=== PATIENT | male | born 1935 | race Caucasian/White ===

== ENCOUNTER 2021-08-29 14:00 | Outpatient (RCR) | payer MEDICARE, SELFPAY | END 2021-10-17 15:00 | disposition home or self-care (01) | LOC: HO.PT 14:00 | PROVIDERS: Visit Provider Otolaryngology | DX: R42 Dizziness and giddiness (principal) | CPT/HCPCS: 97110; 97112; 97162 ==

== ENCOUNTER 2022-11-18 07:21 | Inpatient (IN) | payer MEDICARE, SELFPAY ==
[2022-11-18] VITALS (7 sets, daily range): BP systolic 108–132; BP diastolic 52–87; PULSE 71–87; RESP 16–20; TEMP 36.7–37.1; O2SAT 88–96; BMI 37.1
--- NOTE | ~2022-11-18 | XR_ITS ---
EXAMINATION: XR CHEST CLINICAL INFORMATION: Shortness of breath. COMPARISON: None TECHNIQUE: Portable AP view of the chest was obtained. XR/XR chest 1V FINDINGS/IMPRESSION: The study is quite limited by portable technique and low lung volumes. Findings suggest bilateral interstitial prominence with patchy, bilateral, predominantly perihilar interstitial and possibly groundglass and/or alveolar infiltrates. The findings raise suspicion for pulmonary edema; superimposed pneumonia cannot be confirmed or excluded. There is a question of a hazy density at the left base, raising the possibility of small effusion. No effusion is suspected on the right. No pneumothorax is evident. The cardiac silhouette is suboptimally evaluated. The tip of a left subclavian pulse generator device lead projects over the right ventricle. There is an old, healed fracture of the left clavicle. There are degenerative changes of the spine.
--- NOTE | ~2022-11-18 | XR_ITS ---
EXAMINATION: XR CHEST CLINICAL INFORMATION: Cough and shortness of breath COMPARISON: 11/18/2022 TECHNIQUE: Frontal view of the chest was obtained. FINDINGS: Low lung volumes. Small bilateral pleural effusions suspected. Retrocardiac opacity redemonstrated pulmonary venous congestion without overt edema. No pneumothorax. No acute osseous abnormalities. XR/XR chest 1V IMPRESSION: * Small bilateral pleural effusions suspected. * Retrocardiac opacity could represent atelectasis or infiltrate.
--- NOTE | ~2022-11-18 | CT_ITS ---
EXAMINATION: CT CHEST WITHOUT CONTRAST CLINICAL INFORMATION: Dyspnea, cough. Rule out infiltrates, edema or mass. COMPARISON: Chest x-rays of 11/19/2022 and 11/18/2022. Selected images of the lumbar spine MRI of 01/06/2013. Renal ultrasound of 07/17/2022. TECHNIQUE: Multidetector volumetric CT imaging of the chest was done. Axial MIP volume rendering provided. Sagittal and coronal reformatted images were obtained. This CT examination was performed using dose optimization techniques as appropriate, variously including the following: *Automated exposure control *Adjustment of mA and/or kV according to patient size (this includes techniques or standardized protocols for targeted exams where dose is matched to indication/reason for exam; i.e. extremities or head) *Use of iterative reconstruction technique DLP: 230 mGy-cm FINDINGS: LUNGS: There is a 0.4 cm noncalcified nodule in the right lung apex posterolaterally (series 8 image 118). Scattered ground-glass changes may represent hypoventilatory changes or changes related to small-airway or small-vessel disease. There is right lower lobe posterior consolidation. MEDIASTINUM: Generalized cardiomegaly. No evidence of mediastinal or hilar adenopathy. Trachea and central bronchi are well patent. No pericardial effusion. Mild pericardial thickening is seen. No focal thyroid nodule. CORONARY ARTERY CALCIFICATION: Extensive coronary calcifications are noted. PLEURA: There is no pleural effusion. No pleural mass or thickening. AXILLA: No lymphadenopathy. CHEST WALL: A left-sided single-lead pacemaker is in place in the upper anterior chest wall subcutaneous tissue with the pacer lead terminating into the right ventricle. UPPER ABDOMEN: Large fat attenuating lesion is noted in the right suprarenal region exerting mass effect over the posterior margin of the liver. Some fat reticulation is noted in the region. Normal-appearing right adrenal gland is not seen. Corresponding hyperechoic lesion is noted on the ultrasound of 07/17/2022. The kidneys are not visualized in the imaged abdomen. Visualized left adrenal gland is unremarkable. OSSEOUS STRUCTURES: No acute or suspicious osseous lesion. Ossification of the anterior longitudinal ligament is noted. CT/CT chest wo IV con IMPRESSION: 1. A 0.4 cm nodule in the right lung apex. According to the UPDATED 2017 Fleischner Society recommendations, the advised followup imaging for solid nodules < 6 mm is: LOW RISK PATIENT: No routine follow up. HIGH RISK PATIENT: Optional CT at 12 months. 2. Ground-glass changes in the lungs are nonspecific and may reflect hypoventilatory changes or changes related to small-airway or small-vessel disease. Infectious/inflammatory process is also in the differential. Right lower lobe consolidation may represent atelectasis or infiltrate. Otherwise, no discrete mass or changes of pulmonary edema noted. 3. Extensive coronary calcifications. Cardiomegaly. Mild pericardial thickening. 4. 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 There are no pertinent prior studies for comparison otherwise. Differential may include large adrenal myolipoma or retroperitoneal lipomatous tumor. Recommend correlation with clinical history. Fleischner guidelines were followed.
--- NOTE | 2022-11-18 07:43 | ECG_ITS ---
Test Reason : sob Blood Pressure : / mmHG Vent. Rate : 070 BPM Atrial Rate : 089 BPM P-R Int : 000 ms QRS Dur : 164 ms QT Int : 450 ms P-R-T Axes : 000 116 073 degrees QTc Int : 486 ms Ventricular-paced rhythm Underlyong AF Abnormal ECG No previous ECGs available Referred By: Homero Clayton Electronically Signed By:ALEJANDRA CHAVARRIA MD
--- NOTE | 2022-11-18 07:45 | ED_ITS ---
HPI - SOB/Dyspnea General Chief Complaint: Dyspnea Stated Complaint: SOB PER EMS Time Seen by Provider: 11/18/22 07:40 Source: patient Mode of arrival: EMS Limitations: no limitations History of Present Illness HPI Narrative: patient states that he has been short of breath for 1 week MD elicited complaint: shortness of breath Onset (ago): week(s) Timing: constant Severity: mild Known history of: congestive heart failure Related Data Home Medications Medication Instructions Recorded Confirmed atorvastatin 20 mg tablet 1 tab PO DAILY 11/18/22 11/18/22 cholecalciferol (vitamin D3) 25 25 mcg PO BID 11/18/22 11/18/22 mcg (1,000 unit) tablet (Vitamin D3) metformin 500 mg tablet 1 tab PO BID 11/18/22 11/18/22 metoprolol succinate 200 mg 1 tab PO DAILY 11/18/22 11/18/22 tablet,extended release 24 hr omeprazole 20 mg capsule,delayed 1 cap PO DAILY 11/18/22 11/18/22 release potassium chloride 20 mEq 1 tab PO BID 11/18/22 11/18/22 tablet,extended release rivaroxaban 15 mg tablet (Xarelto) 1 tab PO DAILY 11/18/22 11/18/22 torsemide 20 mg tablet 2 tab PO BID 11/18/22 11/18/22 Allergies Allergy/AdvReac Type Severity Reaction Status Date / Time No Known Allergies Allergy Verified 11/18/22 07:32 Review of Systems Review of Systems: Yes all other systems are reviewed and are negative Cardiovascular: Cardiovascular: Reports dyspnea Respiratory: Respiratory: Reports dyspnea Musculoskeletal: Comments: leg swelling Neurologic: Denies Sensory deficit (Neuro) [facility] Past Medical History Medical History (Updated 11/18/22 @ 11:14 by Pedro Cunha MD) CAD (coronary artery disease) Chronic a-fib CKD (chronic kidney disease), stage III COPD (chronic obstructive pulmonary disease) Diabetes mellitus PHIL (obstructive sleep apnea) Surgical History (Updated 11/18/22 @ 11:12 by Pedro Cunha MD) Artificial cardiac pacemaker H/O hernia repair S/P appendectomy S/P AV albertina ablation S/P total knee arthroplasty Social History Social History Advance Directives: Yes Advance Directives Information Provided: Yes Advance Directives on File: No Physical Exam Vital Signs: Vital Signs: Last Vital Signs Temp 98.1 F 11/18/22 13:32 Pulse 73 11/18/22 13:32 Resp 16 11/18/22 13:32 BP 122/87 11/18/22 13:32 Pulse Ox 94 11/18/22 13:32 O2 Del Method 11/18/22 13:32 O2 Flow Rate 2 11/18/22 10:32 BMI result Body Mass Index 37.1 Const: Other: elderly male slightly short of breath Nutritional Appearance: average body habitus Orientation/consciousness: oriented to person and patient oriented x3 Limitations: no limitations HEENT: Head: Yes normal to inspection Ears: external ears normal General nose exam: Normal external nose present Mouth: Normal oral and palatal mucosa present and oropharynx normal Throat: Yes posterior oropharynx normal Eyes: General: appearance normal, both eyes and all related structures Neck: Other: supple, positive JVD Chest: Chest palpation & inspection: normal inspection of the chest Resp: Other: basilar rales Cardio: Jugular venous distension: no JVD Rate: regular rate Rhythm: regular rhythm Heart sounds: S1 normal heart sound present and S2 normal heart sound present GI: Inspection: Yes normal to inspection Palpation (GI): Soft to palpation, nontender and No hepatosplenomegaly present Auscultation: normal bowel sounds : General: Yes no CVA tenderness Back/Spine/Pelvis: Back: no CVA tenderness Skin: General skin exam: no rashes or lesions noted Neuro: General: oriented to person and patient oriented x3 Cranial nerves: Yes CN's II-XII intact bilaterally Motor exam (neuro): 5/5 motor strength present throughout Sensory Exam: No Sensory deficit (Neuro) Extrem: Other: 3+ edema Psych: Appearance: grossly normal Course Reevaluation(s) Reevaluation #1: discussed with his PMD, H/H at baseline, renal function at baseline, EF 35% will admit as he has worsening CHF on his xray and pleural effusion Time: 11:05 Medications Administered Discontinued Medications Generic Name Dose Route Start Last Admin Trade Name Freq PRN Reason Stop Dose Admin Furosemide 40 mg 11/18/22 07:43 11/18/22 08:17 Furosemide 40 Mg/4 Ml Vial IVPUSH 11/18/22 07:44 40 mg ONCE ONE Administration Protocol Nitroglycerin 1 inch 11/18/22 07:43 11/18/22 08:17 Nitroglycerin 2 % Oint 1 Gm Packet TRANSDERMA 11/18/22 07:44 1 inch ONCE ONE Administration Medical Decision Making Differential Diagnosis Differential Diagnoses: The differential diagnosis associated with the presenta tion includes (chf, cardiac ischemia, pleural effusion) Admission/Observation Consideration of admission/observation: Escalation of care including admi ssion/observation considered (87 yo with poor heart, presents with shortness of breath admission was considered upon arrival) Consult Healthcare Provider Management of the patient was discussed with: Hospitalist and Primary Care Provider (Brian Fry) Lab Data MDM Lab Attestation statement: I reviewed the patient's lab results. 11/18/22 07:56 11/18/22 07:56 Labs: Lab Results 11/18/22 11/18/22 11/18/22 Range/Units 07:56 07:56 07:56 WBC 11.6 H (4.8-10.8) X10*3/uL RBC 3.77 L (4.60-5.80) X10*6/uL Hgb 8.4 L (14.0-18.0) g/dl Hct 28.8 L (42.0-52.0) % MCV 76.4 L (80.0-98.0) fL MCH 22.3 L (27.0-33.0) pg MCHC 29.2 L (31.0-36.0) g/dl RDW 17.9 H (11.0-16.0) % Plt Count 147 L (160-400) X10*3/uL MPV 9.9 (9.4-12.4) fL Immature Gran % (Auto) 0.6 H (0.0-0.4) % Neut % (Auto) 67.1 (45-73) % Lymph % (Auto) 16.7 L (20-40) % [place] % (Auto) 14.9 H (2-11) % Eos % (Auto) 0.3 (0-4) % Baso % (Auto) 0.4 (0-2) % Lymph # (Auto) 1.9 (1.2-4.9) X10*3/uL [place] # (Auto) 1.7 H (0.1-1.2) X10*3/uL Eos # (Auto) 0.0 (0.0-0.4) X10*3/uL Baso # (Auto) 0.1 (0.0-0.2) X10*3/uL Abs Immat Gran (auto) 0.07 H (0.00-0.03) X10*3/uL Absolute Neuts (auto) 7.8 (2.0-8.3) x10*3/uL Absolute Nucleated RBC 0.000 (0.0-0.012) X10*3/uL Nucleated RBC % (auto) 0.0 (0.0-0.2) /100WBC Smear Tech's Comments VERIFIED Sodium 140 (135-145) mmol/L Potassium 4.0 (3.3-5.1) mmol/L Chloride 101 (96-108) mmol/L Carbon Dioxide 25 (22-29) mmol/L Anion Gap 18 (12-20) BUN 47 H (9-16) mg/dL Creatinine 1.75 H (0.5-1.4) mg/dL Estim Creat Clear Calc 34.9 Estimated GFR 37 Random Glucose 146 H (60-115) mg/dL Calcium 9.2 (8.4-10.2) mg/dL Iron 23 L (45-160) mcg/dL TIBC 359 (228-428) mcg/dL % Saturation 6 L (15-50) % Unsat Iron Binding 336 ug/dL Ferritin 26 (20-250) ng/mL Troponin I High Sens (<3.5-35.0) ng/L B-Natriuretic Peptide (<100) pg/mL Influenza Type A (PCR) NEGATIVE (Negative) Influenza Type B (PCR) NEGATIVE (Negative) RSV RNA Qual (PCR) NEGATIVE (Negative) SARS-CoV-2 RNA (RT-PCR) NEGATIVE (Negative) 11/18/22 11/18/22 Range/Units 07:56 07:56 WBC (4.8-10.8) X10*3/uL RBC (4.60-5.80) X10*6/uL Hgb (14.0-18.0) g/dl Hct (42.0-52.0) % MCV (80.0-98.0) fL MCH (27.0-33.0) pg MCHC (31.0-36.0) g/dl RDW (11.0-16.0) % Plt Count (160-400) X10*3/uL MPV (9.4-12.4) fL Immature Gran % (Auto) (0.0-0.4) % Neut % (Auto) (45-73) % Lymph % (Auto) (20-40) % [place] % (Auto) (2-11) % Eos % (Auto) (0-4) % Baso % (Auto) (0-2) % Lymph # (Auto) (1.2-4.9) X10*3/uL [place] # (Auto) (0.1-1.2) X10*3/uL Eos # (Auto) (0.0-0.4) X10*3/uL Baso # (Auto) (0.0-0.2) X10*3/uL Abs Immat Gran (auto) (0.00-0.03) X10*3/uL Absolute Neuts (auto) (2.0-8.3) x10*3/uL Absolute Nucleated RBC (0.0-0.012) X10*3/uL Nucleated RBC % (auto) (0.0-0.2) /100WBC Smear Tech's Comments Sodium (135-145) mmol/L Potassium (3.3-5.1) mmol/L Chloride (96-108) mmol/L Carbon Dioxide (22-29) mmol/L Anion Gap (12-20) BUN (9-16) mg/dL Creatinine (0.5-1.4) mg/dL Estim Creat Clear Calc Estimated GFR Random Glucose (60-115) mg/dL Calcium (8.4-10.2) mg/dL Iron (45-160) mcg/dL TIBC (228-428) mcg/dL % Saturation (15-50) % Unsat Iron Binding ug/dL Ferritin (20-250) ng/mL Troponin I High Sens 22.2 (<3.5-35.0) ng/L B-Natriuretic Peptide 614 H (<100) pg/mL Influenza Type A (PCR) (Negative) Influenza Type B (PCR) (Negative) RSV RNA Qual (PCR) (Negative) SARS-CoV-2 RNA (RT-PCR) (Negative) Independent Interpretation I performed an independent interpretation of an: EKG (ventricular pasce rhythm at 70, no acute changes ) and Plain X-Ray (congestive heart failure) Independent Historian Clinical information obtained from an independent historian. History obtained from or confirmed by: Other (son) Discharge Plan Discharge Clinical Impression: Congestive heart failure, Hypoxia Patient Disposition: Admitted As Inpatient
--- OUTSIDE RECORDS SUMMARY | 2022-11-18 07:52 | XMS_ITS | Continuity of Care Document ---
:1935 Author Organization [facility] Address [address] [place] [id number]- Care Team Providers Name Role Phone Eldon LARA, Brian Primary Care Physician Encounter [facility] Date(s): 10/19/19 - 10/19/[address] [id number]- [facility] Encounter Diagnosis Atrial fibrillation with RVR (Final) - 10/19/19 Left leg cellulitis (Final) - 10/19/19 Discharge Disposition: A-D/C Home Attending Physician: Basilio Capellan MD Admitting Physician: Basilio Capellan MD Referring Physician: Not on Staff, Referring MD Allergies, Adverse Reactions, Alerts Substance Reaction Severity Status penicillins Active Medications apixaban 5 mg oral tablet 1 tablet = 5 mg, By Mouth, 2 times a day, # 60 tablet, 0 Refills, Maintenance, 09/03/19 12:33:16 EST, Tablet Start Date: 09/03/19 Status: Orderedatorvastatin 20 mg oral tablet 1 tablet = 20 mg, By Mouth, Daily at bedtime, 0 Refills, Maintenance, 09/03/19 12:32:27 EST, Tablet Start Date: 09/03/19 Status: Orderedfurosemide 40 mg oral tablet 40 mg, 1, tablet, By Mouth, Daily, # 30 tablet, Refills 0, Maintenance, 08/30/19 22:24:57 EST Start Date: 08/30/19 Status: Orderedketotifen 0.025% ophthalmic solution 1 drops, Eyes, Both, Every 8 hours, # 5 mL, 0 Refills, Maintenance, 08/30/19 22:26:21 EST, Ophth Solution Start Date: 08/30/19 Status: Orderedmetoprolol succinate 200 mg oral capsule, extended release 1 capsule = 200 mg, By Mouth, Daily, # 30 capsule, 0 Refills, Maintenance, 09/03/19 12:32:59 EST, ERCapsule Start Date: 09/03/19 Stop Date: 10/03/19 Status: Orderedoxybutynin 5 mg oral tablet 0 Refills, Maintenance, 08/30/19 22:26:08 EST Start Date: 08/30/19 Status: Orderedpotassium chloride 20 mEq oral tablet, extended release 1 tablet = 20 mEq, By Mouth, Daily, take 1 tablet by mouth once daily Start Date: 08/30/19 Status: Ordered Problem List Condition Effective Dates Status Health Status Informant COPD (chronic obstructive pulmonary Active disease)(Confirmed) Coronary artery disease(Confirmed) Active Lower extremity edema(Confirmed) Active Hypertension(Confirmed) Active Prostate cancer(Confirmed) Active PHIL treated with BiPAP(Confirmed) Active Ulcer of left holliday(Confirmed) Active Results Radiology Reports Exam Date Time Procedure Performing Provider Status 10/19/19 5:06 PM Chest 2 Views Frontal and Lat Stupak , August; Au th (Verified) Notes:(Chest 2 Views Frontal and Lat) Reason For Exam: Pain;Other:RESULT: Chest 2 Views Frontal and Lat Chest 2 Views Frontal and Lat Refer to EMR; Reason: Other:; Pain; Clinical Question(s): Other:; Fracture, pneumothorax, pulmonary contusion COMPARISON: 08/30/2019 FINDINGS: LINES AND TUBES: None. LUNGS AND PLEURA: Low lung volume with haziness of both lung bases and small bilateral pleural effusions. No pneumothorax. HEART, MEDIASTINUM AND ANDERSON: Mild prominence of the cardiac silhouette, unchanged. Normal mediastinal and hilar contour. BONES AND SOFT TISSUES: No acute abnormality. Flowing anterior osteophytes consistent with DISH. IMPRESSION: Small bilateral pleural effusions with lower lobe atelectasis. WSN: [id number] Dictated By: Emery Bronson DO Dictated Date/Time: 10/19/19 5:14 pm Reviewed By: Emery Bronson DO Signed By: Emery Bronson DO Signed Date/Time: 10/19/19 5:14 pm Transcribed By: PATO Transcribed Date/Time: 10/19/19 5:12 pm Exam Date Time Procedure Performing Provider Status 10/19/19 5:06 PM Knee 1 or 2 Views Left Stupak , August; Auth (Paul ified) Notes:(Knee 1 or 2 Views Left) Reason For Exam: with Pain;TraumaRESULT: Knee 1 or 2 Views Left Knee 1 or 2 Views Left, 2 views Refer to EMR; Reason: Trauma; with Pain; Clinical Question(s): Fracture; Hx of Present Illness: pt being seen here today for wound care management to BLE, noted to be in rapid afib, brought down to ED by RESEARCH AND DEVELOPMENT SCIENTIST; Other Objective Findings: pt is alert and awake, oriented x4, resp even and non labored, speaking in clear complete sentences. denies sob dyspnea chest pain. denies blurred vision dizziness h COMPARISON: None. FINDINGS: There is no evidence of acute or healing fracture, dislocation or bone lesion. There are moderate enthesopathic changes of the patella. There is no significant joint space narrowing. There is mild medial and lateral compartment chondrocalcinosis. There is diffuse moderate soft tissue edema throughout the visualized left knee, with moderate soft tissue swelling anterior to the patella and a probable small to moderate suprapatellar effusion with multiple ossified loose bodies. IMPRESSION: 1. No acute fracture or dislocation. 2. Probable small to moderate suprapatellar effusion with ossified loose bodies. 3. Prepatellar soft tissue swelling, which may represent contusion or prepatellar bursitis. 4. Diffuse soft tissue swelling. WSN: [id number] Dictated By: Hao Garcia MD Dictated Date/Time: 10/19/19 5:14 pm Reviewed By: Hao Garcia MD Signed By: Hao Garcia MD Signed Date/Time: 10/19/19 5:14 pm Transcribed By: PATO Transcribed Date/Time: 10/19/19 5:12 pm Vital Signs Most recent to oldest [Reference 1 2 3 Range]: Oxygen Saturation [94-100 %] 95 % 94 % 99 % (10/19/19 11:10 PM) (10/19/19 9:53 PM) (10/19/19 7:55 PM) Pulse Rate [55-90 bpm] 125 bpm 129 bpm 121 bpm *H* *H* *H* (10/19/19 11:10 PM) (10/19/19 10:12 PM) (10/19/19 9:53 PM) Blood Pressure [90-138/55-84 mm 132/102 mm Hg 139/70 mm Hg 140/100 mm Hg Hg] (10/19/19 11:10 PM) *H* *H* (10/19/19 10:12 PM) (10/19/19 9:53 P M) Respiratory Rate [16-30 br/min] 26 br/min 28 br/min 27 br/min (10/19/19 11:10 PM) (10/19/19 9:53 PM) (10/19/19 7:55 PM) Temperature [96.8-100.4 DegF] 98.2 DegF (10/19/19 3:54 PM) Mode of Delivery (Oxygen) Room air Room air Room a ir (10/19/19 7:55 PM) (10/19/19 6:27 PM) (10/19/19 3:54 P M) Blood pressure sites Arm, right Arm, left Arm, right (10/19/19 7:55 PM) (10/19/19 6:27 PM) (10/19/19 3:54 P M) Temperature Route Oral (10/19/19 3:54 PM) Social History Social History Type Response Smoking Status Never (less than 100 in life time) entered on: 08/31/19 Sex
--- OUTSIDE RECORDS SUMMARY | 2022-11-18 07:52 | XMS_ITS ---
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 3149 02668 mellitus with diabetic peripheral angiopathy without gangrene ALLERGIES Substance Reaction Event Type Date Status Mold Unknown Drug Allergy Jul, Active Penicillin Unknown Drug Allergy Jul, Active Dust Mites Unknown Drug Allergy Jul, Active ENCOUNTERS Encounter Location Date Diagnosis [facility] [address] [place] [address] Oct, [place] [address] [facility] [address] [place] [address] Jul, Type 2 di abetes mellitus [place], [place] with diabetic pe ripheral [address] angiopathy witho ut gangrene E11.51 ; Tinea unguium B35.1 ; Pain in right toe(s) M79 .674 ; Pain in left toe (s) M79.675 ; Other hammer toe(s) (acquired ), right foot M20.41 and Other hammer toe(s) (a cquired), left foot M20.42 [facility] [address] [place] [address] May, Type 2 di abetes mellitus [facility] [place] diabetic pe ripheral [address] angiopathy witho ut gangrene E11.51 ; Tinea unguium B35.1 ; Pain in right toe(s) M79 .674 ; Pain in left toe (s) M79.675 ; Other hammer toe(s) (acquired ), right foot M20.41 and Other hammer toe(s) (a cquired), left foot M20.42 [facility] [place] [address] February, Type 2 di abetes mellitus [place], [place] with diabetic pe ripheral [address] angiopathy witho ut gangrene E11.51 ; Tinea unguium B35.1 ; Pain in right toe(s) M79 .674 and Pain in left toe (s) M79.675 [facility] [place] [address] Dec, Type 2 di abetes mellitus [place], [place] with diabetic pe ripheral [address] angiopathy witho ut gangrene E11.51 ; Tinea pedis B35.3 ; Ti atul unguium B35.1 ; Pain in right toe(s) M79 .674 and Pain in left toe (s) M79.675 [facility] [place] [address] Oct, Type 2 di abetes mellitus [place], [place] with diabetic pe ripheral [address] angiopathy witho ut gangrene E11.51 ; Tinea unguium B35.1 ; Pain in right toe(s) M79 .674 ; Pain in left toe (s) M79.675 and Amber a pedis B35.3 [facility] [place] [address] Jul, Type 2 di abetes mellitus [facility] [place] diabetic pe ripheral [address] angiopathy witho ut gangrene E11.51 ; Tinea unguium B35.1 ; Pain in right toe(s) M79 .674 ; Pain in left toe (s) M79.675 ; Other hammer toe(s) (acquired ), right foot M20.41 and Other hammer toe(s) (a cquired), left foot M20.42 [facility] [place] [address] May, Type 2 di abetes mellitus [facility] [place] pe ri[place]al [address] angiopathy witho ut gangrene E11.51 ; Tinea unguium B35.1 ; Pain in right toe(s) M79 .674 ; Pain in left toe (s) M79.675 ; Other hammer toe(s) (acquired ), left foot M20.42 and Other hammer toe(s) (a cquired), right foot M20.4 1 [facility] [address] February, Tinea severo uium B35.1 ; Pain [facility] [place] in right toe(s) M79.674 ; [address] Pain in left toe (s) M79.675 and Type 2 diabetes mellitu s with diabetic periphe ral angiopathy witho ut gangrene E11.51 [facility] [address] Dec, Tinea severo uium B35.1 ; Pain [facility] [place] in right toe(s) M79.674 ; [address] Pain in left toe (s) M79.675 and Type 2 diabetes mellitu s with diabetic periphe ral angiopathy witho ut gangrene E11.51 [place] [address] Oct, Tinea severo uium B35.1 ; Pain [facility] [place] in right toe(s) M79.674 ; [address] Pain in left toe (s) M79.675 and Type 2 diabetes mellitu s with diabetic periphe ral angiopathy witho ut gangrene E11.51 [facility] [address] Aug, Tinea severo uium B35.1 ; [facility] [place] Other hammer toe (s) [address] (acquired), righ t foot M20.41 ; Pain in right toe(s) M79.674 ; Other hammer toe(s) (a cquired), left foot M20.42 ; Pain in left toe(s) M79. 675 and Type 2 diabetes mellitus with diabetic pe ripheral angiopathy witho ut gangrene E11.51 [facility] [place] [address] May, Tinea severo uium B35.1 ; [place], [place] Other hammer toe (s) [address] (acquired), righ t foot M20.41 ; Pain in right toe(s) M79.674 ; Other hammer toe(s) (a cquired), left foot M20.42 ; Pain in left toe(s) M79. 675 and Type 2 diabetes mellitus with diabetic pe ripheral angiopathy witho ut gangrene E11.51 [facility] [place] [address] February, Tinea severo uium B35.1 ; [place] Other hammer toe (s) [address] (acquired), righ t foot M20.41 ; Pain in right toe(s) M79.674 ; Other hammer toe(s) (a cquired), left foot M20.42 ; Pain in left toe(s) M79. 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 675 [facility] [address] Sep, [place] [address] [place] [address] Jul, Tinea severo uium B35.1 ; [place] [facility] [place] in right toe(s) M79.674 [address] and Pain in left toe(s) M79.675 [facility] [address] [place] [address] Apr, Tinea severo uium B35.1 ; Pain [facility] [place] in right toe(s) M79.674 [address] and Pain in left toe(s) M79.675 [facility] [address] [place] [address] February, Tinea severo uium B35.1 ; [facility] M79.674 [address] and Pain in left toe(s) M79.675 [facility] [address] [place] [address] Nov, Tinea severo uium B35.1 ; Pain [facility] [place] in right toe(s) M79.674 [address] and Pain in left toe(s) M79.675 [facility] [address] [place] [address] Aug, Tinea severo uium B35.1 ; [facility] [place] Tinea pedis B35. 3 ; Pain [address] in right toe(s) M79.674 and Pain in left toe(s) M79.675 [facility] [address] Jun, [place] [address] [facility] [address] [place] [address] Jun, Tinea severo uium B35.1 ; [facility] [place] Tinea pedis B35. 3 ; Pain [address] in right toe(s) M79.674 and Pain in left toe(s) M79.675 [facility] [address] May, [place] [address] [facility] [address] [place] [address] May, [place] [address] [facility] [address] Mar, [place] [address] [facility] [address] Mar, [place] [address] [facility] [address] [facility] [address] Mar, Tinea severo uium B35.1 ; [facility] [place] Tinea pedis B35. 3 ; Pain [address] in right toe(s) M79.674 and Pain in left toe(s) M79.675 [facility] [address] [place] [address] Jan, Tinea severo uium B35.1 ; [facility] B35. 3 ; Pain [address] in right toe(s) M79.674 and Pain in left toe(s) M79.675 [facility] [address] Nov, [place] [address] [facility] [place] [address] Nov, Tinea severo uium B35.1 ; [facility] [place] Tinea pedis B35. 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 [address] ; Pain in right toe(s) M79.674 and Pain in left toe(s) M79.675 [facility] [address] [place] [address] Mar, Tinea severo uium B35.1 ; Pain [facility] [place] in right toe(s) M79.674 [address] and Pain in left toe(s) M79.675 [facility] [address] Mar, [place] [address] [facility] [place] [address] Dec, Tinea severo uium B35.1 ; Pain [facility] [place] in right toe(s) M79.674 [address] and Pain in left toe(s) M79.675 [facility] [address] 10 Dec, 2016 [place] [address] [facility] [place] [address] 14 Sep, 2016 Tinea severo uium B35.1 ; [place] Tinea pedis B35. 3 ; Pain [address] in right toe(s) M79.674 and Pain in left toe(s) M79.675 [facility] [address] 14 Jun, 2016 Tinea severo uium B35.1 ; [place] Tinea pedis B35. 3 ; Pain [address] in right toe(s) M79.674 and Pain in left toe(s) M79.675 IMMUNIZATIONS Vaccine Route Administration Date Status Influenza Unknown Jul 13, 2020 Administered SOCIAL HISTORY Qualifiers Date Never Smoker REASON FOR REFERRAL Reason Consult Notes Referring Provider First Name Dusty Referring Provider Last Name Yannick Referring Provider Specialty Podiatry Referring Provider email [email or web address] Referred Provider Brian Colón FUNCTIONAL STATUS PLAN OF CARE Activity Details Future Appointment Provider Name:Dusty Lanier , 2022-12-04 10:45:00 AM, [facility] [place] [address], [place], [address], Referral Consult Notes, Brian Campos i Future/Pending Procedure 21335-MKMCQKY NAIL, 6 OR MOR E Future/Pending Procedure 98150-DZXE SKIN LESIONS, 2 T O 4 Future/Pending Procedure 24415-OEQVFVP NAIL, 6 OR MOR E Future/Pending Procedure 47387-RGPT SKIN LESIONS, 2 T O 4 Future/Pending Procedure 54698-ZKEXYLO NAIL, 6 OR MOR E Future/Pending Procedure 10363-JTYB SKIN LESIONS, 2 T O 4 Future/Pending Procedure 92652-RSMZKRC NAIL, 6 OR MOR E Future/Pending Procedure 21015-GBOC SKIN LESIONS, 2 T O 4 Future/Pending Procedure 77682-ZMJJWQK NAIL, 6 OR MOR E Future/Pending Procedure 67208-LGGM SKIN LESIONS, 2 T O 4 Future/Pending Procedure 26083-ZEQIBCA NAIL, 6 OR MOR E Future/Pending Procedure 68656-RKXK SKIN LESIONS, 2 T O 4 Future/Pending Procedure 28845-YDREBRP NAIL, 6 OR MOR E Future/Pending Procedure 20221-ODZJ SKIN LESIONS, 2 T O 4 Future/Pending Procedure 12260-MEFZKSF NAIL, 6 OR MOR E Future/Pending Procedure 35415-NMDI SKIN LESIONS, 2 T O 4 Future/Pending Procedure 47858-DVMHXOA NAIL, 6 OR MOR E Future/Pending Procedure 32130-NQVC SKIN LESIONS, 2 T O 4 Future/Pending Procedure 18813-OSDAOFQ NAIL, 6 OR MOR E Future/Pending Procedure 35811-KCHS SKIN LESIONS, 2 T O 4 Future/Pending Procedure 51879-AGTIJTS NAIL, 6 OR MOR E Future/Pending Procedure 17098-EKHY SKIN LESIONS, 2 T O 4 Future/Pending Procedure 65974-IVPKQES NAIL, 6 OR MOR E Future/Pending Procedure 95812-GJVE SKIN LESIONS, 2 T O 4 Future/Pending Procedure 26809-RRKCDZP NAIL, 6 OR MOR E Future/Pending Procedure 20601-PPGX SKIN LESIONS, 2 T O 4 Future/Pending Procedure 18843-EWXBXPM NAIL, 6 OR MOR E Future/Pending Procedure 48393-FWIP SKIN LESIONS, 2 T O 4 Future/Pending Procedure 14549-HHYYDEN NAIL, 6 OR MOR E Future/Pending Procedure 43179-YCBG SKIN LESIONS, 2 T O 4 Future/Pending Procedure 77591-EFQKERR NAIL, 6 OR MOR E Future/Pending Procedure 34455-FMTGPKD NAIL, 6 OR MOR E Future/Pending Procedure 85869-NTNYEHM NAIL, 6 OR MOR E Future/Pending Procedure 64380-RDMFIWE NAIL, 6 OR MOR E Future/Pending Procedure 85726-RQYCWAU NAIL, 6 OR MOR E Future/Pending Procedure 51105-FUTSTJV NAIL, 6 OR MOR E Future/Pending Procedure 42936-HNATBYU NAIL, 6 OR MOR E Future/Pending Procedure 01901-KPZGLDT NAIL, 6 OR MOR E Future/Pending Procedure 98026-MVNSGYB NAIL, 6 OR MOR E Future/Pending Procedure 23166-QUXVTRF NAIL, 6 OR MOR E Future/Pending Procedure 70035-JBRTCDO NAIL, 6 OR MOR E Future/Pending Procedure 03013-DDVNBOO NAIL, 6 OR MOR E Future/Pending Procedure 68471-ZCCOFPE NAIL, 6 OR MOR E Future/Pending Procedure 39678-DTYYERO NAIL, 6 OR MOR E Future/Pending Procedure 36448-YAVPPPV NAIL, 6 OR MOR E VITAL SIGNS Height 5 ft 5 in in 2022-08-05 Weight 207 lbs 2022-08-05 BMI 34.44 kg/m2 2022-08-05 Heart Rate 75 /min 2019-12-06 Temperature 97.2 degrees Fahrenheit 2021-01-04 Blood pressure systolic 124 mm Hg 2019-12-06 Blood pressure diastolic 67 mm Hg 2019-12-06 MEDICATIONS Medication Instructions Dosage Frequency Start End Duration Statu s Date Date Vitamin D Active amLODIPine Not-Taki Besylate ng Atorvastatin Active Calcium Loratadine Not-Taki ng Metoprolol Active Succinate 200 MG Ecotrin Not-Taki ng Amoxicillin 500 TAKE 1 8 Not-Taki MG CAPSULE BY ng MOUTH 3 TIMES DAILY FOR 8 DAYS Econazole Nitrate Externally 1 application 24h 28 Maurizio, 30 da ys Not-Taki 1 % Once a day to affected 2018 ng area Oxybutynin Not-Taki ng Eliquis Active Torsemide Active Extra Depth as directed Active Orthopedic Shoes (1 Pair) with Customized Heat Molded Multidensity Innersoles (3 Pair) Potassium Active Naftin 1 % Externally 1 application 12h 27 Maurizio, 30 days Not- Taki Twice a day to affected 2018 ng area Omeprazole Not-Taki ng Allergy Not-Taki Medication ng Ciclopirox Externally 1 application 12h 30 day(s) Ac tive Olamine 0.77 % Twice a day Hydrocortisone 1 Externally as directed 12h 30 days Not-Taki % Twice a day ng Furosemide 40 MG Not-Tyler i ng metFORMIN HCl Not-Taki ng PROCEDURES Procedure Date Ordered Result Body Site DEBRIDE NAIL, 6 OR MORE Nov 25, 2018 DEBRIDE NAIL, 6 OR MORE Oct 24, 2021 TRIM SKIN LESIONS, 2 TO 4 February 17, 2020 DEBRIDE NAIL, 6 OR MORE Jun 25, 2018 DEBRIDE NAIL, 6 OR MORE Sep 07, 2018 DEBRIDE NAIL, 6 OR MORE April 08, 2018 TRIM SKIN LESIONS, 2 TO 4 Aug 05, 2022 DEBRIDE NAIL, 6 OR MORE January 28, 2018 DEBRIDE NAIL, 6 OR MORE Jun 26, 2016 DEBRIDE NAIL, 6 OR MORE Nov 20, 2017 TRIM SKIN LESIONS, 2 TO 4 Sep 22, 2019 DEBRIDE NAIL, 6 OR MORE May 24, 2020 TRIM SKIN LESIONS, 2 TO 4 Aug 08, 2021 DEBRIDE NAIL, 6 OR MORE Sep 10, 2017 DEBRIDE NAIL, 6 OR MORE Jul 15, 2019 TRIM SKIN LESIONS, 2 TO 4 March 06, 2022 TRIM SKIN LESIONS, 2 TO 4 May 17, 2021 DEBRIDE NAIL, 6 OR MORE Jul 02, 2017 DEBRIDE NAIL, 6 OR MORE May 06, 2019 DEBRIDE NAIL, 6 OR MORE January 02, 2022 TRIM SKIN LESIONS, 2 TO 4 May 24, 2020 DEBRIDE NAIL, 6 OR MORE April 02, 2017 DEBRIDE NAIL, 6 OR MORE February 18, 2019 TRIM SKIN LESIONS, 2 TO 4 May 23, 2022 TRIM SKIN LESIONS, 2 TO 4 Aug 17, 2020 DEBRIDE NAIL, 6 OR MORE Dec 06, 2019 DEBRIDE NAIL, 6 OR MORE Aug 08, 2021 DEBRIDE NAIL, 6 OR MORE January 01, 2017 DEBRIDE NAIL, 6 OR MORE Sep 25, 2016 TRIM SKIN LESIONS, 2 TO 4 March 08, 2021 TRIM SKIN LESIONS, 2 TO 4 Oct 24, 2021 TRIM SKIN LESIONS, 2 TO 4 January 02, 2022 DEBRIDE NAIL, 6 OR MORE March 08, 2021 DEBRIDE NAIL, 6 OR MORE January 04, 2021 TRIM SKIN LESIONS, 2 TO 4 Oct 26, 2020 DEBRIDE NAIL, 6 OR MORE Oct 26, 2020 DEBRIDE NAIL, 6 OR MORE Aug 17, 2020 TRIM SKIN LESIONS, 2 TO 4 January 04, 2021 TRIM SKIN LESIONS, 2 TO 4 Dec 06, 2019 DEBRIDE NAIL, 6 OR MORE Sep 22, 2019 DEBRIDE NAIL, 6 OR MORE May 17, 2021 DEBRIDE NAIL, 6 OR MORE February 17, 2020 DEBRIDE NAIL, 6 OR MORE Aug 05, 2022 DEBRIDE NAIL, 6 OR MORE May 23, 2022 DEBRIDE NAIL, 6 OR MORE March 06, 2022 RESULTS No Results REASON FOR VISIT Insurance Providers [facility] Member Patient Patient Patient Patient Patient Subscriber Subscriber Subscriber Group Insurance Plan Plan Plan Plan ID Relationship Address Phone Name Date of ID Name Date of No Type Insurance Insurance Insurance Coverage to Subscriber Address Phone Name Dates Medicare National [id number] Medicare self [place] 1935 [id number] [facility] [address] [place] [address] [employer] [phone] [employer] self [place] 19 [id number] Shield [id number] [place] [address] [facility] [place] [address] MEDICAL (GENERAL) HISTORY Type Description Date Medical History A-Fib Medical History Cancer Medical History Cholesterol Medical History COPD Medical History type II diabetes Medical History High blood pressure Medical History Lung disease Medical History [place] Medical History Pacemaker Medical History Reflux Surgical History appendectomy 1954 Surgical History hernia 1985 Surgical History knee surgery, left Surgical History prostate Surgical History teeth extraction Surgical History cataract surgery 08/11/17 Surgical History Stent placement in both eyes 08/25/17 Surgical History Biopsy Left thigh 04/2019 Surgical History cardiac pacemaker 01/2020 Hospitalization History [facility] fo r biopsy left 04/2019 inner thigh Hospitalization History [facility] for 5 days - AFIB 08/2049 Hospitalization History [facility] Pacemaker 01/2020
--- OUTSIDE RECORDS SUMMARY | 2022-11-18 07:52 | XMS_ITS | Continuity of Care Document ---
:1935 Author Organization [facility] Address [address] [place] [id number]- Care Team Providers Name Role Phone Eldon LARA, Brian Primary Care Physician Encounter [facility] Date(s): 03/15/22 - 04/20/[address] [address] Attending Physician: Linda Murray MD Admitting Physician: Linda Murray MD Referring Physician: Linda Murray MD Allergies, Adverse Reactions, Alerts Substance Reaction Severity Status penicillins Active Medications Aerochamber w/Mask (Large) See Instructions, # 1 each, Maintenance, for COPD, 10/29/19 12:24:00 EST, Compound Start Date: 10/29/19 Status: OrderedAerochamber w/Mask (Large) See Instructions, # 1 each, Maintenance, for COPD, 10/29/19 13:59:00 EST, Compound Start Date: 10/29/19 Status: Orderedalbuterol-ipratropium 3 mg-0.5 mg/3 ml inhalation solution 3 mL, Inhalation, 4 times a day, # 180 mL, 0 Refills, Maintenance, 10/29/19 12:27:00 EST, Solution, [facility], 3 mL Inhalation 4 times a day, 165, cm, 10/29/19 8:16:00 EST, Height, 101.6, kg, 10/22/19 0:01:00 EST, Dry Weight Start Date: 10/29/19 Status: Orderedapixaban 5 mg oral tablet 1 tablet = 5 mg, By Mouth, 2 times a day, # 60 tablet, 0 Refills, Maintenance, 09/03/19 12:33:16 EST, Tablet Start Date: 09/03/19 Status: Orderedatorvastatin 20 mg oral tablet 1 tablet = 20 mg, By Mouth, Daily at bedtime, 0 Refills, Maintenance, 09/03/19 12:32:27 EST, Tablet Start Date: 09/03/19 Status: OrderedGlucometer Generic Glucometer Generic, See Instructions, # 1 each, Refills 0, Tot. Refills 0, Maintenance, Use Glucometer to check your BS three times a day before meals and as needed., 12/28/19 9:40:00 EDT, Supply, 168,cm, 12/28/19 3:07:00 EDT, Height, 100, kg, ... Start Date: 12/28/19 Status: OrderedGLucometer test strips GLucometer test strips, See Instructions, # 100 each, Refills 3, Tot. Refills 3, Maintenance, Use Glucometer to check your BS three times a day before meals and as needed., 12/28/19 9:41:00 EDT, Supply, 168, cm, 12/28/19 3:07:00 EDT, Height, 100, kg,... Start Date: 12/28/19 Status: OrderedLancets Lancets, See Instructions, # 100 each, Refills 3, Tot. Refills 3, Maintenance, Use Glucometer to check your BS three times a day before meals and as needed., 12/28/19 9:41:00 EDT, Supply, 168, cm, 12/28/19 3:07:00 EDT, Height, 100, kg, 12/15/19 17:16:... Start Date: 12/28/19 Status: OrderedmetFORMIN 500 mg oral tablet 1 tablet = 500 mg, By Mouth, 2 times a day, # 60 tablet, 0 Refills, Maintenance, 12/28/19 10:00:00 EDT, Tablet, [facility] 3, 168, cm, 12/28/19 3:07:00 EDT, Height, 100, kg, 12/15/19 17:16:00 EST, Dry Weight Start Date: 12/28/19 Status: Orderedmetoprolol succinate 200 mg oral capsule, extended release 1 capsule = 200 mg, By Mouth, Daily, # 30 capsule, 0 Refills, Maintenance, 09/03/19 12:32:59 EST, ERCapsule Start Date: 09/03/19 Stop Date: 10/03/19 Status: OrderedNebulizer/Compressor See Instructions, # 1 each, Maintenance, for COPD, 10/29/19 12:23:00 EST, Compound Start Date: 10/29/19 Status: OrderedNebulizer/Compressor See Instructions, # 1 each, Maintenance, for COPD, 10/29/19 13:59:00 EST, Compound Start Date: 10/29/19 Status: Orderedpotassium chloride 20 mEq oral tablet, extended release 1 tablet = 20 mEq, By Mouth, Daily, take 1 tablet by mouth once daily Start Date: 08/30/19 Status: Orderedtorsemide 20 mg oral tablet 2 tablet = 40 mg, By Mouth, 2 times a day, # 120 tablet, 0 Refills, Maintenance, 12/28/19 9:40:00 EDT, Tablet, [facility] 3, 168, cm, 12/28/19 3:07:00 EDT, Height, 100, kg, 12/15/19 17:16:00 EST, Dry Weight Start Date: 12/28/19 Status: Ordered Problem List Condition Effective Dates Status Health Status Informant COPD (chronic obstructive pulmonary Active disease)(Confirmed) Coronary artery disease(Confirmed) Active Lower extremity edema(Confirmed) Active Hypertension(Confirmed) Active Prostate cancer(Confirmed) Active PHIL treated with BiPAP(Confirmed) Active Ulcer of left holliday(Confirmed) Active Social History Social History Type Response Smoking Status Never (less than 100 in life time) entered on: 08/31/19 Sex Male
--- OUTSIDE RECORDS SUMMARY | 2022-11-18 07:52 | XMS_ITS | Continuity of Care Document ---
:1935 Author Organization [facility] Address [address] [place] [phone]- Care Team Providers Name Role Phone Eldon LARA, Brian Primary Care Physician Encounter [facility] Date(s): 10/21/19 - 10/29/[address] [address]- [facility] Encounter Diagnosis Leg swelling (Final) - 10/21/19 Discharge Disposition: Discharged to Hospice-Home (routine care Attending Physician: Rustam Medina MD Admitting Physician: Marcos Painter MD Referring Physician: Not on Staff, Referring [...] 0 Refills, Maintenance, 10/29/19 12:27:00 EST, Solution, [facility], 3 mL Inhalation 4 times [...] 12:32:27 EST, Tablet Start Date: 09/03/19 Status: OrdereddilTIAZem 360 mg/24 hours oral capsule, extended release 1 capsule = 360 mg, By Mouth, Daily, # 30 capsule, 0 Refills, Maintenance, 10/28/19 12:42:00 EST, ERCapsule Start Date: 10/28/19 Status: Ordereddoxycycline hyclate 100 mg oral tablet = 100 mg, By Mouth, Every 12 hours, may take with food to minimize abdominal discomfort, # 5 tablet,0 Refills, Acute 10/30/19 23:59:00 EST, 10/28/19 12:00:00 EST, Tablet, [facility], 165, cm, 10/28/19 11:47:00 EST, Height, 101.6, kg, 01... Start Date: 10/28/19 Stop Date: 10/30/19 Status: Orderedfurosemide 40 mg oral tablet 40 mg, 1, tablet, By Mouth, 2 times a day, # 60 tablet, Refills 0, Tot. Refills 0, Maintenance, 10/28/19 12:01:00 EST, Route to Pharmacy Electronically, [facility], 165, cm, 10/28/19 11:47:00 EST, Height, 101.6, kg, 10/22/19 0:01:00 EST,... Start Date: 10/28/19 Status: Orderedketotifen 0.025% ophthalmic solution 1 drops, [...] Active Ulcer of left holliday(Confirmed) Active Results Orders for Microbiology Reports Name Date Sterile Body Fluid Culture W/ Gram Smear 10/21/19 Anaerobic Culture (ANAEROBIC CULTURE) 10/21/19 Blood Culture 10/21/19 Blood Culture #2 10/21/19 Microbiology Reports TEST:Anaerobic Culture STATUS:Unauthenticated BODY SITE: SOURCE:JOINT COLLECTED DATE/TIME:10/21/19 3:44 PMAnaerobic Culture SPECIMEN DESCRIPTION : JOINT FLUID SPECIAL REQUESTS : PLEASE NOTE THAT CULTURE RESULTS MAY BE COMPROMISED BY THE LIMITED VOLUME OF SPECIMEN RECEIVED CULTURE : NO ANAEROBES ISOLATED SO FAR. REPORT STATUS : PRELIMINARY REPORT TEST:Sterile Fluid Culture STATUS:Auth (Verified) BODY SITE: SOURCE:JOINT COLLECTED DATE/TIME:10/21/19 3:44 PMSterile Fluid Culture SPECIMEN DESCRIPTION : JOINT FLUID SPECIAL REQUESTS : PLEASE NOTE THAT CULTURE RESULTS MAY BE COMPROMISED BY THE LIMITED VOLUME OF SPECIMEN RECEIVED GRAM STAIN : 2+ POLYMORPHONUCLEAR LEUKOCYTES NO ORGANISMS SEEN CULTURE : NO GROWTH 2 DAYS REPORT STATUS : FINAL 10/24/2019TEST:Blood Culture, Second Order STATUS:Auth (Verified) BODY SITE: SOURCE:Blood COLLECTED DATE/TIME:10/21/19 1:29 PMBlood Culture, Second Order SPECIMEN DESCRIPTION : BLOOD NO SITE SPECIAL REQUESTS : NONE CULTURE : NO GROWTH 5 DAYS. REPORT STATUS : FINAL 10/26/2019TEST:Blood Culture STATUS:Auth (Verified) BODY SITE: SOURCE:Blood COLLECTED DATE/TIME:10/21/19 1:05 PMBlood Culture SPECIMEN DESCRIPTION : BLOOD RAC SPECIAL REQUESTS : NONE CULTURE : NO GROWTH 5 DAYS. REPORT STATUS : FINAL 10/26/2019Radiology Reports Exam Date Time Procedure Performing Provider Status 10/21/19 2:43 PM Chest 2 Views Frontal and Lat Keira Posadas; Auth (Verified) Notes:(Chest 2 Views Frontal and Lat) Reason For Exam: Shortness of Breath RESULT: Chest 2 Views Frontal and Lat Chest 2 Views Frontal and Lat Refer to EMR; Reason: Shortness of Breath; Clinical Question(s): CHF COMPARISON: 10/19/2019 and 08/30/2019 FINDINGS: LINES AND TUBES: None. LUNGS AND PLEURA: Low lung volume with prominent interstitial markings of the mid to lower lungs. Suspect trace bilateral pleural effusions. No pneumothorax. HEART, MEDIASTINUM AND ANDERSON: Mild prominence of the cardiac silhouette, unchanged. Normal mediastinal and hilar contour. BONES AND SOFT TISSUES: No acute abnormality. Following anterior osteophytes consistent with DISH. IMPRESSION: Unchanged mild pulmonary edema pattern with small bilateral effusions. WSN: [id number] Dictated By: Emery Bronson DO Dictated Date/Time: 10/21/19 2:52 pm Reviewed By: Emery Bronson DO Signed By: Emery Bronson DO Signed Date/Time: 10/21/19 2:52 pm Transcribed By: PATO Transcribed Date/Time: 10/21/19 2:50 pm Exam Date Time Procedure Performing Provider Status 10/21/19 2:43 PM Calcaneus Min 2 Views Left Keira Posadas; Aut h (Verified) Notes:(Calcaneus Min 2 Views Left) Reason For Exam: with Pain;TraumaRESULT: Calcaneus Min 2 Views Left Calcaneus Min 2 Views Left Refer to EMR; Reason: Trauma; with Pain; Clinical Question(s): Fracture; Hx of Present Illness: Pt reports falling last weekend, and scraped his knee. Pt developed a wound on his L knee, with spreadingredness, swelling, and pain. COMPARISON: None. FINDINGS: No evidence of acute or healing fracture or acute bone lesion. Sclerotic focus in the anterior-mid calcaneal body with narrow zone of transition most suggestive of an indolent process. Mild enthesophyte formation at the Achilles tendon insertion. IMPRESSION: No fracture or acute osseous abnormality. WSN: [id number] Dictated By: Emery Bronson DO Dictated Date/Time: 10/21/19 2:50 pm Reviewed By: Emery Bronson DO Signed By: Emery Bronson DO Signed Date/Time: 10/21/19 2:50 pm Transcribed By: PATO Transcribed Date/Time: 10/21/19 2:48 pm Exam Date Time Procedure Performing Provider Status 10/21/19 2:43 PM Tibia/Fibula 2 Views Left CuauhtemocKeira restrepo; Auth (Verified) Notes:(Tibia/Fibula 2 Views Left) Reason For Exam: with Pain;TraumaRESULT: Tibia/Fibula 2 Views Left Tibia/Fibula 2 Views Left Refer to EMR; Reason: Trauma; with Pain; Clinical Question(s): Fracture; Hx of Present Illness: Pt reports falling last weekend, and scraped his knee. Pt developed a wound on his L knee, with spreadingredness, swelling, and pain. COMPARISON: 10/19/2019 FINDINGS: No fractures or acute bone lesions. Visualized joints are normal. Moderate soft tissue swelling throughout the lower extremity. IMPRESSION: Moderate soft tissue swelling throughout the lower extremity without acute osseous abnormality. WSN: [id number] Dictated By: Emery Bronson DO Dictated Date/Time: 10/21/19 2:48 pm Reviewed By: Emery Bronson DO Signed By: Emery Bronson DO Signed Date/Time: 10/21/19 2:48 pm Transcribed By: PATO Transcribed Date/Time: 10/21/19 2:47 pm Exam Date Time Procedure Performing Provider Status 10/21/19 1:19 PM Knee 1 or 2 Views Left Arvind , Verena; Auth (Paul ified) Notes:(Knee 1 or 2 Views Left) Reason For Exam: wound with drainage and with Pain;TraumaRESULT: Knee 1 or 2 Views Left Knee 2 Views Left REASON: Trauma; wound with drainage and with Pain; Clinical Question(s): Osteomyelitis; Hx of Present Illness: Pt reports falling last weekend, and scraped his knee. Pt delevoped a wound on his L knee,with spreading redness, swelling, and pain. COMPARISON: 10/19/2019. FINDINGS: No evidence of acute or healing fracture, or dislocation. No lucent bone lesion to suggest osteomyelitis. Medial and lateral compartment chondrocalcinosis, unchanged. Multiple small calcified densities along the quadriceps tendon and patellar ligament, unchanged. Small suprapatellar effusion, decreased from prior. Soft tissue swelling anterior to the patella and soft tissue edema, unchanged. No soft tissue gas. IMPRESSION: 1. No significant interval change. 2. Small joint effusion, mildly decreased. 3. Prepatellar soft tissue swelling and generalized edema, unchanged. I have personally reviewed the images and I agree with this report. WSN: [id number] Dictated By: Pool Acosta DO Dictated Date/Time: 10/21/19 1:34 pm Reviewed By: Emery Bronson DO Signed By: Emery Bronson DO Signed Date/Time: 10/21/19 1:39 pm Transcribed By: PATO Transcribed Date/Time: 10/21/19 1:29 pm Vital Signs Most recent to oldest 1 2 3 [Reference Range]: Height 165 cm 165 cm 165 cm (10/29/19 8:16 AM) (10/29/19 1:54 AM) (10/28/19 8:3 0 PM) Weight 98.3 kg 98.3 kg 98.6 kg (10/29/19 10:56 AM) (10/29/19 6:02 AM) (10/28/19 6: 41 AM) Oxygen Saturation [94-100 92 % 93 % 92 % %] *L* *L* *L* (10/29/19 8:16 AM) (10/29/19 1:54 AM) (10/28/19 8:3 0 PM) Pulse Rate [55-90 bpm] 88 bpm 81 bpm 81 bpm (10/29/19 12:56 PM) (10/29/19 8:31 AM) (10/29/19 8: 16 AM) Body Mass Index 37.83 [18.5-24.99] *>HHI* (10/21/19 7:12 PM) Blood Pressure 112/60 mm Hg 115/71 mm Hg 115/71 mm Hg [90-138/55-84 mm Hg] (10/29/19 12:56 PM) (10/29/19 8:31 AM) ( 8:16 AM) Respiratory Rate [16-30 20 br/min 20 br/min 16 br/mi n br/min] (10/29/19 8:16 AM) (10/29/19 1:54 AM) (10/28/19 8:3 0 PM) Temperature [96.8-100.4 98.0 DegF 98.2 DegF 98.2 Deg F DegF] (10/29/19 8:16 AM) (10/29/19 1:54 AM) (10/28/19 8:3 0 PM) Liters per Minute 2 L/min 2 L/min 2 L/min (10/29/19 8:16 AM) (10/29/19 1:54 AM) (10/28/19 9:0 6 AM) Mode of Delivery (Oxygen) Nasal cannula Nasal cannula Room a ir (10/29/19 8:16 AM) (10/29/19 1:54 AM) (10/28/19 8:3 0 PM) Blood pressure sites Arm, right Arm, right Arm, right (10/29/19 8:16 AM) (10/29/19 1:54 AM) (10/28/19 8:3 0 PM) Temperature Route Temporal Oral Oral (10/29/19 8:16 AM) (10/29/19 1:54 AM) (10/28/19 8:3 0 PM) Dry Weight 101.6 kg (10/21/19 7:12 PM) Weight Obtained Via Bed scale Bed scale Bed scale (10/29/19 6:02 AM) (10/28/19 6:41 AM) (10/27/19 6:4 3 AM) Sensory deficits None (10/21/19 7:12 PM) Mobility assistance Transfer, assist of 1, Ambulate, assist of 1 (10/21/19 7:12 PM) Social History Social History Type Response Smoking Status Never (less than 100 in life time) entered on: 08/31/19 Sex Male
--- OUTSIDE RECORDS SUMMARY | 2022-11-18 07:52 | XMS_ITS | Continuity of Care Document ---
:1935 Author Organization [facility] Address [address] [place] [id number]- Care Team Providers Name Role Phone Brian Colón MD [id number] - 11/17/[address] [address]- [facility] Attending Physician: Samantha Leigh Allergies, Adverse Reactions, Alerts Substance Reaction Severity [...] 0 Refills, Maintenance, 10/29/19 12:27:00 EST, Solution, [facility], 3 mL Inhalation 4 times [...] 12:42:00 EST, ERCapsule Start Date: 10/28/19 Status: Orderedfurosemide 40 mg oral tablet 40 mg, 1, tablet, By Mouth, 2 times a day, # 60 tablet, Refills 0, Tot. Refills 0, Maintenance, 10/28/19 12:01:00 EST, Route to Pharmacy Electronically, [facility], 165, cm, 10/28/19 11:47:00 EST, [...]
--- OUTSIDE RECORDS SUMMARY | 2022-11-18 07:53 | XMS_ITS | Continuity of Care Document ---
:1935 Author Organization [facility] Address [address] [place] [phone]- Care Team Providers Name Role Phone Eldon LARA, Brian Primary Care Physician Encounter [facility] Date(s): 10/25/19 - 11/04/19 [facility] [address] [place] [address]- [facility] Attending Physician: Lazara Rojo Admitting Physician: Lazara Rojo Referring Physician: AdmtrLazara Allergies, Adverse Reactions, Alerts Substance Reaction Severity [...] 0 Refills, Maintenance, 10/29/19 12:27:00 EST, Solution, [facility], 3 mL Inhalation [...] 10/28/19 12:01:00 EST, Route to Pharmacy Electronically, [facility], 165, cm, 10/28/19 [...]
--- OUTSIDE RECORDS SUMMARY | 2022-11-18 07:53 | XMS_ITS | Continuity of Care Document ---
:1935 Author Organization [facility] Address [address] [place] [address]- Care Team Providers Name Role Phone Brian Colón MD Primary [id number] Date[facility] 10/15/19 - 11/20/[facility] [address] [place] [address]- [facility] Attending Physician: Arnav Martins MD Admitting Physician: Arnav Martins MD Referring Physician: Brian Colón MD Allergies, Adverse Reactions, Alerts Substance Reaction [...] 0 Refills, Maintenance, 10/29/19 12:27:00 EST, Solution, [facility], 3 mL Inhalation 4 times [...] 10/28/19 12:01:00 EST, Route to Pharmacy Electronically, [facility], 165, cm, 10/28/19 11:47:00 EST, [...]
--- OUTSIDE RECORDS SUMMARY | 2022-11-18 07:53 | XMS_ITS | Continuity of Care Document ---
:1935 Author Organization [facility] Address [address] [place] [address]- Care Team Providers Name Role Phone Eldon LARA, Brian Primary Care Physician Encounter 12/29/19 - 04/18/20 [facility] [address] [place] [id number]- [facility] Discharge Disposition: GOALS MET Allergies, Adverse Reactions, Alerts Substance Reaction Severity [...] 0 Refills, Maintenance, 10/29/19 12:27:00 EST, Solution, [facility], 3 mL Inhalation 4 [...] 168,cm, 12/28/19 3:07:00 EDT, Height, 100, kg, 12/14/... Start Date: 12/28/19 Status: OrderedGLucometer test strips [...] 0 Refills, Maintenance, 12/28/19 10:00:00 EDT, Tablet, [facility] 3, 168, cm, 12/28/19 3:07:00 EDT, [...] 0 Refills, Maintenance, 12/28/19 9:40:00 EDT, Tablet, [facility], 168, cm, 12/28/19 3:07:00 EDT, [...]
--- OUTSIDE RECORDS SUMMARY | 2022-11-18 07:53 | XMS_ITS | Continuity of Care Document ---
:1935 Author Organization [facility] Address [address] [place] [id number]- Care Team Providers Name Role Phone Brian Colón MD Primary Care Physician Encounter [facility] Date(s): 01/03/21 - 01/04/[address] [address]- Discharge Disposition: A-D/C Walkout Attending Physician: Not on Staff, Attending MD Admitting Physician: Not on Staff, Admitting MD Referring Physician: Not on Staff, Referring [...] 0 Refills, Maintenance, 10/29/19 12:27:00 EST, Solution, [facility], 3 mL Inhalation 4 [...] 0 Refills, Maintenance, 12/28/19 10:00:00 EDT, Tablet, [facility] 3, 168, cm, 12/28/19 3:07:00 EDT, [...] 0 Refills, Maintenance, 12/28/19 9:40:00 EDT, Tablet, [facility] 3, 168, cm, 12/28/19 3:07:00 EDT, Height, 100, kg, 12/15/19 17:16:00 EST, Dry Weight Start Date: 12/28/19 Status: Ordered Problem List Condition Effective Dates Status Health Status Informant COPD (chronic obstructive pulmonary Active disease)(Confirmed) Coronary artery disease(Confirmed) Active Lower extremity edema(Confirmed) Active Hypertension(Confirmed) Active Prostate cancer(Confirmed) Active PHIL treated with BiPAP(Confirmed) Active Ulcer of left holliday(Confirmed) Active Vital Signs Most recent to oldest [Reference Range]: 1 Weight 97.5 kg (01/03/21 9:54 PM) Oxygen Saturation [94-100 %] 97 % (01/03/21 9:54 PM) Pulse Rate [55-90 bpm] 72 bpm (01/03/21 9:54 PM) Blood Pressure [90-138/55-84 mm Hg] 120/58 mm Hg (01/03/21 9:54 PM) Respiratory Rate [16-30 br/min] 16 br/min (01/03/21 9:54 PM) Temperature [96.8-100.4 DegF] 98.4 DegF (01/03/21 9:54 PM) Mode of Delivery (Oxygen) Room air (01/03/21 9:54 PM) Blood pressure sites Arm, left (01/03/21 9:54 PM) Temperature Route Oral (01/03/21 9:54 PM) Dry Weight 97.5 kg (01/03/21 9:54 PM) Social History Social History Type Response Smoking Status Never (less than 100 in life time) entered on: 08/31/19 Sex Male
--- OUTSIDE RECORDS SUMMARY | 2022-11-18 07:53 | XMS_ITS | Continuity of Care Document ---
:1935 Author Organization [facility] Address [address] [place] [id number]- Care Team Providers Name Role Phone Brian Colón MD Primary Care Physician Encounter [facility] Date(s): 08/30/22 - 08/31/[address] [address]- Discharge Disposition: A-D/C Home Attending Physician: Phuc Aguilar MD Admitting Physician: Nya Corley MD Referring Physician: Not on Staff, Referring [...] 0 Refills, Maintenance, 10/29/19 12:27:00 EST, Solution, [facility], 3 mL Inhalation 4 times a day, 165, cm, 10/29/19 8:16:00 EST, Height, 101.6, kg, 10/22/19 0:01:00 EST, Dry Weight Start Date: 10/29/19 Status: Orderedatorvastatin 20 mg oral tablet 1 [...] 0 Refills, Maintenance, 12/28/19 10:00:00 EDT, Tablet, [facility] 3, 168, cm, 12/28/19 3:07:00 EDT, [...] 13:59:00 EST, Compound Start Date: 10/29/19 Status: Orderedomeprazole 20 mg oral enteric coated capsule 1 capsule = 20 mg, By Mouth, Daily, # 30 capsule, 0 Refills, Maintenance, 08/30/22 19:59:00 EST, EC Capsule, Partial fill upon patient request if the prescription is for a schedule II opioid drug. Start Date: 08/30/22 Status: OrderedPotassium Chloride (Eqv-K-Tab) 20 mEq oral tablet, extended release 0 Refills, Maintenance, 08/30/22 20:12:00 EST, Partial fill upon patient request if the prescriptionis for a schedule II opioid drug. Start Date: 08/30/22 Status: Orderedtorsemide 20 mg oral tablet 2 tablet = 40 mg, By Mouth, 2 times a day, # 120 tablet, 0 Refills, Maintenance, 12/28/19 9:40:00 EDT, Tablet, [facility], 168, cm, 12/28/19 3:07:00 EDT, Height, 100, kg, 12/15/19 17:16:00 EST, Dry Weight Start Date: 12/28/19 Status: Orderedwarfarin 2 mg oral tablet Hold Coumadin until he have follow-up INR check in Coumadin clinic on Friday09/02/2022. Follow-up with [facility] Start Date: 08/30/22 Status: Ordered Problem List Condition Confirmation Course Effective Dates Status Health Stat us Informant COPD (chronic Confirmed Active obstructive pulmonary disease) Coronary artery Confirmed Active disease Lower extremity Confirmed Active edema Hypertension Confirmed Active Prostate cancer Confirmed Active PHIL treated with Confirmed Active BiPAP Ulcer of left holliday Confirmed Active Vital Signs Most recent to oldest 1 2 3 [Reference Range]: Oxygen Saturation [94-100 100 % 97 % 94 % %] (08/31/22 7:32 AM) (08/31/22 4:00 AM) (08/31/22 12:00 AM) Pulse Rate [55-90 bpm] 72 bpm 73 bpm 73 bpm (08/31/22 7:32 AM) (08/31/22 4:00 AM) (08/31/22 12:00 AM) Blood Pressure 125/59 mm Hg 129/60 mm Hg 128/64 mm Hg [90-138/55-84 mm Hg] (08/31/22 7:32 AM) (08/31/22 4:00 AM) (08/13 07/04 12:00 AM) Respiratory Rate [16-30 18 br/min 18 br/min 18 br/mi n br/min] (08/31/22 7:32 AM) (08/31/22 4:00 AM) (08/31/22 12:00 AM) Temperature [96.8-100.4 98.4 DegF 97.7 DegF 97.9 Deg F DegF] (08/31/22 7:32 AM) (08/31/22 4:00 AM) (08/31/22 12:00 AM) Mode of Delivery (Oxygen) Room air Room air Room a ir (08/31/22 7:32 AM) (08/31/22 4:00 AM) (08/31/22 12:00 AM) Blood pressure sites Arm, right Arm, right Arm, right (08/31/22 7:32 AM) (08/31/22 4:00 AM) (08/31/22 12:00 AM) Temperature Route Oral Oral Oral (08/31/22 7:32 AM) (08/31/22 4:00 AM) (08/31/22 12:00 AM) Social History Social History Type Response Smoking Status Never (less than 100 in life time) entered on: 08/31/19 Sex Male Admission evaluation note Dimas Raymond MD: PERFORM, MODIFY Event Display: Admission Note Authored Date: Patient: ??TANJA VIDAL ? Age:??87 Years?Sex:??Male?:??1935?? Chief Complaint/Reason for Consultation Supratherapeutic INR History of Present Illness The patient is a pleasant 87-year-old gentleman with a past medical history of atrial fibrillation status post AV node ablation with single-chamber pacemaker placement in December 2019 on chronic anticoagulation therapy with warfarin, heart failure with preserved ejection fraction, lower venous insufficiency, obstructive sleep apnea, type 2 diabetes mellitus, history of prostate cancer status post radiation therapy,??sleep apnea on CPAP at home, and gastroesophageal reflux disease who was referred to the emergency department in the setting of supratherapeutic INR. ?? Patient reports that he is on chronic anticoagulation therapy with warfarin due to his atrial fibrillation. ??His INR is monitored by [facility] cardiology. ??He underwent blood work-up yesterday which revealed an INR 1.8 with no recent changes in his dose of warfarin or diet changes. ??Given hisfindings, he was referred to the hospital for further evaluation and management. ??He denies any symptoms of chest discomfort, dizziness, lightheadedness, palpitations, or syncopal episodes. ??He denied any bleeding. ?? In the emergency department, afebrile, pulse rate 95, blood pressure 133/71, and saturating 93% on room air. ??Lab work was notable for normocytic anemia with a hemoglobin of 9.9, supratherapeutic INRof 9.3, electrolytes within normal limits, glucose level 132, BUN 39, and creatinine 1.5. ??Patient was evaluated by his outpatient risk mgr and recommended vitamin K and admission to hospital medicine for monitoring??before discharge.?? Review of Systems Constitutional, Eye, Skin, Head/Neck, ENMT, Respiratory, Cardiovascular, Gastrointestinal, Endocrine, Musculoskeletal, Neurologic, Psych reviewed and negative except as noted in HPI. Objective Vital Signs?? Temperature: 98.5 DegF (08/30/22:11:00) Temperature Route: Oral (08/30/22:11:) Pulse Rate: 70 bpm (08/30/22:11:00) Respiratory Rate: 16 br/min (08/30/22:11:00) Systolic Blood Pressure: 123 mm Hg (08/30/22:11:00) Diastolic Blood Pressure: 64 mm Hg (08/30/22 17:11:00) Blood pressure sites: Arm, right (08/30/22:11:00) Mean Arterial Pressure: 92 mm Hg (08/30/22 13:10:00) Pulse Pressure: 59 mm Hg (08/30/22 17:11:00) Oxygen Saturation: 95 % (08/30/22 17:11:00) Mode of Delivery (Oxygen): Room air (08/30/22 17:11:00) Early Warning Score: 5 (08/30/22 18:08:55) ?? Physical Exam General:??No apparent distress. Well nourished, appears stated age. Able to participate in a conversation. HEENT:??NCAT, EOMI, Sclera are anicteric. Moist oral mucosa. Neck:??Supple, No lymphadenopathy. No JVD. Cardiac:??Irregularly irregular, + S1, S2. No appreciable murmurs. PMI ND. Respiratory:??Clear to auscultation bilaterally without wheezes, rales or rhonchi. Abdomen:??Soft, nontender, non-distended, no abnormal BS, no HSM. Rectal exam deferred. Extremities:??1+ pitting edema bilaterally. Neurology:??No focal neurological deficits.?? Psych:??Appropriate affect. Assessment/Plan The patient is a pleasant 87-year-old gentleman with a past medical history of atrial fibrillation status post AV node ablation with single-chamber pacemaker placement in December 2019 on chronic anticoagulation therapy with warfarin, heart failure with preserved ejection fraction, lower venous insufficiency, obstructive sleep apnea, type 2 diabetes mellitus, history of prostate cancer status post radiation therapy,??sleep apnea on CPAP at home, and gastroesophageal reflux disease who was referred to the emergency department in the setting of supratherapeutic INR. ?? Supratherapeutic INR Atrial fibrillation status post AV node ablation with single-chamber pacemaker placement in December 2019 on chronic anticoagulation Patient reports that he is on chronic anticoagulation therapy with warfarin due to his atrial fibrillation. ?? His INR is monitored by [facility] cardiology. ?? He underwent blood work-up yesterday which revealed an INR 1.8 with no recent changes in his dose of warfarin or diet changes. ?? Given his findings, he was referred to the hospital for further evaluation and management. ?? He denies any symptoms of chest discomfort, dizziness, lightheadedness, palpitations, or syncopal episodes.? He denied any bleeding. He was found to have a??supratherapeutic INR of 9.3. Patient was evaluated by his outpatient risk mgr and recommended vitamin K and admission to hospital medicine for monitoring??before discharge.? Plan: - Vitamin K 2.5 mg orally x1 as per his risk mgr - Hold warfarin at this time and once his INR normalizes, we will resume oral anticoagulation - Continue to monitor INR daily - Possible discharge tomorrow - Continue metoprolol 200 mg extended release daily ?? Normocytic anemia Patient noted to have normocytic anemia with hemoglobin of 9.9. No active signs of bleeding. Patient denies black tarry stools. ?? Plan: - Outpatient follow-up with primary care provider ?? Chronic stable issues: Hyperlipidemia: Continue atorvastatin 20 mg daily Gastroesophageal reflux disease: Continue omeprazole 20 mg daily Heart failure with preserved ejection fraction: Continue torsemide 40 mg oral twice daily PHIL on CPAP: Patient would like to hold off on CPAP??tonight Type 2 DM: Hold metformin, ISS with POC TID ?? Quality measures: DVT prophylaxis:??Hold, given supratherapeutic INR Diet: Cardiac Code: Full resuscitation ?? Patient discussed with attending physician, Dr. Najera. Histories Allergies penicillins? (Severity: Unknown severity, Onset: Unknown) ?? Past Medical History/Problem List Active Problems??(7) COPD (chronic obstructive pulmonary disease) Coronary artery disease Hypertension Lower extremity edema PHIL treated with BiPAP Prostate cancer Ulcer of left holliday ?? Past Surgical History Total knee replacement Hernia repair Appendectomy ?? Social History Alcohol Details:??Use: Current. ??Frequency: 1-2 times per month. Substance Abuse Details:??Use: Never. Tobacco Details:??Use: Never (less than 100 in lifetime). ?? Family History Mother: Valvular cardiomyopathy Father: Liver cancer Medications Home Medications Albuterol/Ipratropium (albuterol-ipratropium 3 mg-0.5 mg/3 ml inhalation solution)?3?Milliliter?Inhalation?4 times a day Atorvastatin (atorvastatin 20 mg oral tablet)?1?tab(s)?20?Milligram?By Mouth?Daily at bedtime Durable Medical Equipment (Nebulizer/Compressor)?See Instructions?for COPD Durable Medical Equipment (Aerochamber w/Mask (Large))?See Instructions?for COPD Durable Medical Equipment (Aerochamber w/Mask (Large))?See Instructions?for COPD Durable Medical Equipment (Nebulizer/Compressor)?See Instructions?for COPD Durable Medical Equipment (Glucometer Generic)?See Instructions?Use Glucometer to check your BS three times a day before meals and as needed. Durable Medical Equipment (Lancets)?See Instructions?Use Glucometer to check your BS three times a day before meals and as needed. Durable Medical Equipment (GLucometer test strips)?See Instructions?Use Glucometer to check your BS three times a day before meals and as needed. Metformin (metFORMIN 500 mg oral tablet)?1?tab(s)?500?Milligram?By Mouth?2 times a day Metoprolol (metoprolol succinate 200 mg oral capsule, extended release)?1?capsule?200?Milligram?By Mouth?Daily?for 30?Days Omeprazole (omeprazole 20 mg oral enteric coated capsule)?1?capsule?20?Milligram?By Mouth?Daily torsemide (torsemide 20 mg oral tablet)?2?tab(s)?40?Milligram?By Mouth?2 times a day Warfarin (warfarin 2 mg oral tablet)?TAKE 1-2 TABLETS BY MOUTH DAILY DIRECTED BY [facility] ?? Inpatient Medications Medications (9) Active SCHEDULED: (2) NaCl 0.9% Flush 3ml (NaCL 0.9% Flush) ??3 mL, IV Push, Every 8 hours Phytonadione 5mg / 0.5mL Oral Syringe (Vitamin K Oral Syringe) ??2.5 mg 0.25 mL, By Mouth, Once CONTINUOUS: (0) PRN: (7) Acetaminophen 325 mg Tablet (Acetaminophen Tablet) ??650 mg, By Mouth, Every 4 hours Dextromethorphan-Guaifenesin 20 mg-200 mg/10 mL Liqu UD (Robitussin DM Liquid) ??10 mL, By Mouth, Every 4 hours Melatonin 3 mg Tablet (Melatonin Tablet) ??3 mg, By Mouth, Daily at bedtime NaCl 0.9% Flush 3ml (NaCL 0.9% Flush) ??3 mL, IV Push, Every 8 hours Polyethylene Glycol 17 Gm Powder (MiraLax Powder) ??17 Gm 1 pack/packet, By Mouth, Daily Senna 8.6 mg / Docusate 50 mg tablet (Docusate/Senna Tablet) ??1 tablet, By Mouth, 2 times a day Simethicone 80 mg Chewable Tablet (Simethicone Tablet) ??80 mg, Chew, 3 times a day Results Recent Labs BLOOD COUNT & DIFF WBC 7.7 k/mm3 ()?? 08/30/2022 13:07 RBC 4.10 m/mm3 (Low)?? 08/30/2022 13:07 Hgb 9.9 Gm/dL (Low)?? 08/30/2022 13:07 Hct 33.1 % (Low)?? 08/30/2022 13:07 MCV 80.7 femtoliters ()?? 08/30/2022 13:07 MCH 24.1 pg (Low)?? 08/30/2022 13:07 MCHC 29.9 g/dL (Low)?? 08/30/2022 13:07 Platelet Count 148 k/mm3 (Low)?? 08/30/2022 13:07 RDW-SD 55.3 femtoliters (High)?? 08/30/2022 13:07 MPV 10.5 femtoliters ()?? 08/30/2022 13:07 Nucleated RBC (Automated) 0.0 #/100 WBC'S ()?? 08/30/2022 13:07 Abs. NRBC 0.0 k/mm3 ()?? 08/30/2022 13:07 Abs. Neut 4.3 k/mm3 ()?? 08/30/2022 13:07 Abs. Lymph 2.1 k/mm3 ()?? 08/30/2022 13:07 Abs. Bledsoe 1.1 k/mm3 ()?? 08/30/2022 13:07 Abs. Eo 0.2 k/mm3 ()?? 08/30/2022 13:07 Abs. Baso 0.1 k/mm3 ()?? 08/30/2022 13:07 Neut % 56.0 % ()?? 08/30/2022 13:07 Lymph % 27.6 % ()?? 08/30/2022 13:07 Bledsoe % 13.6 % (High)?? 08/30/2022 13:07 Eos % 1.9 % ()?? 08/30/2022 13:07 Baso % 0.6 % ()?? 08/30/2022 13:07 Imm Gran 0.3 % ()?? 08/30/2022 13:07 Abs. Imm Gran 0.0 k/mm3 ()?? 08/30/2022 13:07 ?? CHEM GENERAL Sodium 143 mmol/L ()?? 08/30/2022 13:07 Potassium 3.7 mmol/L ()?? 08/30/2022 13:07 Chloride 104 mmol/L ()?? 08/30/2022 13:07 Bicarbonate Level 29 mmol/L ()?? 08/30/2022 13:07 Anion Gap 10 ()?? 08/30/2022 13:07 Glucose Level 132 mg/dL (High)?? 08/30/2022 13:07 BUN 39 mg/dL (High)?? 08/30/2022 13:07 Creatinine-Blood 1.5 mg/dL (High)?? 08/30/2022 13:07 Estimated GFR Creatinine 44 ML/MIN/1.73 M2 ()?? 08/30/2022 13:07 ?? COAG INR 9.3 (Critical)?? 08/30/2022 13:07 Protime (PT) 85.6 seconds (High)?? 08/30/2022 13:07 ? EKG study Event Display: ECG 12-Lead Authored Date: Please click on pdf link to open report Event Display: ECG 12-Lead Authored Date: Ventricular Rate: 73 BPM Atrial Rate: 76 BPM QRS Duration: 140 ms Q-T Interval: 436 ms QTC Calculation(Bazett): 480 ms R Davey: 111 degrees T Davey: -46 degrees Ventricular-paced rhythm Abnormal ECG When compared with ECG of 15-DEC-2019 12:48, Electronic ventricular pacemaker has replaced Atrial fibrillation Confirmed by ANGELIA ALLISON MD ([id number]) on 08/31/2022 7:18:22 AM [place]edar: ANGELIA ALLISON MD, MD, Phuc: PERFORM Event Display: Discharge/Transfer Note Hospital Authored Date: [id number] Patient: ??TANJA VIDAL ? Age:??87 Years?Sex:??Male?:??1935?? Patient Information Discharge Location: [facility] Primary Care Physician: Brian Colón MD Admit Date/Time: 08/30/22 11:57 Discharge Disposition Discharge Disposition: ?? Discharge Diagnosis ??Supratherapeutic INR Atrial fibrillation status post AV node ablation heart failure with preserved ejection fraction, _ Discharge Medications Albuterol/Ipratropium (albuterol-ipratropium 3 mg-0.5 mg/3 ml inhalation solution)?3?Milliliter?Inhalation?4 times a day Atorvastatin (atorvastatin 20 mg oral tablet)?1?tab(s)?20?Milligram?By Mouth?Dailyat bedtime Durable Medical Equipment (Nebulizer/Compressor)?See Instructions?for COPD Durable Medical Equipment (Aerochamber w/Mask (Large))?See Instructions?for COPD Durable Medical Equipment (Aerochamber w/Mask (Large))?See Instructions?for COPD Durable Medical Equipment (Nebulizer/Compressor)?See Instructions?for COPD Durable Medical Equipment (Glucometer Generic)?See Instructions?Use Glucometer to check your BS three times a day before meals and as needed. Durable Medical Equipment (Lancets)?See Instructions?Use Glucometer to check your BS three times a day before meals and as needed. Durable Medical Equipment (GLucometer test strips)?See Instructions?Use Glucometer to check your BS three times a day before meals and as needed. Metformin (metFORMIN 500 mg oral tablet)?1?tab(s)?500?Milligram?By Mouth?2 times aday Metoprolol (metoprolol succinate 200 mg oral capsule, extended release)?1?capsule?200?Milligram?By Mouth?Daily?for 30?Days Omeprazole (omeprazole 20 mg oral enteric coated capsule)?1?capsule?20?Milligram?By Mouth?Daily torsemide (torsemide 20 mg oral tablet)?2?tab(s)?40?Milligram?By Mouth?2 times a day Warfarin (warfarin 2 mg oral tablet)?Hold Coumadin until he have follow-up INR check in Coumadin clinic on Friday09/02/2022. ??Follow-up with [facility] ? Medications Discontinued holding coumadin until have follow up INR check on Friday. 09/02/2022 Hospital Course ??The patient is a pleasant 87-year-old gentleman with a past medical history of atrial fibrillationstatus post AV node ablation with single-chamber pacemaker placement in December 2019 on chronic anticoagulation therapy with warfarin, heart failure with preserved ejection fraction, lower venous insufficiency, obstructive sleep apnea, type 2 diabetes mellitus, history of prostate cancer status post radiation therapy,??sleep apnea on CPAP at home, and gastroesophageal reflux disease who was referred tothe emergency department in the setting of supratherapeutic INR. ?? He was treated for: ?? Supratherapeutic INR Atrial fibrillation status post AV node ablation with single-chamber pacemaker placement in December 2019 on chronic anticoagulation Patient reports that he is on chronic anticoagulation therapy with warfarin due to his atrial fibrillation. ?? His INR is monitored by [facility] cardiology.? He denies any symptoms of chest discomfort, dizziness, lightheadedness, palpitations, or syncopal episodes.? He denied any bleeding. He was found to have a??supratherapeutic INR of 9.3. ?? Cardiology was consulted patient was given vitamin K 2.5 mg. ??Now INR is trending down. ??INR is??5.4 now.?? Patient denied any evidence of bleeding.?? Stable H&H. Cardiology/Dr. Damon Holman's follow-up recommendation on??08/31/2022: No INR is trending down.?? Okay to be discharged.?? [facility] cardiology will??arrange follow-up INR check??on Friday and decide about further??Coumadin dose adjustment.?? I instructed clearly about??holding Coumadin until follow- up??INR check and Coumadin clinic. ??Patient agreed. Continue with??metoprolol ?? Normocytic anemia Patient noted to have normocytic anemia with hemoglobin of 9.9. No active signs of bleeding. Patient denies black tarry stools. ?? Plan: - Outpatient follow-up with primary care provider ?? Chronic stable issues: Hyperlipidemia: Continue atorvastatin 20 mg daily Gastroesophageal reflux disease: Continue omeprazole 20 mg daily Heart failure with preserved ejection fraction: Continue torsemide 40 mg oral twice daily. ??Home dose PHIL on CPAP: Patient would like to hold off on CPAP??tonight Type 2 DM: Continue metformin on discharge Objective Assessment and Plan Discharge Planning:? Vital Signs?? Temperature: 98.4 DegF (08/31/22 07:32:00) Temperature Route: Oral (08/31/22 07:32:00) Pulse Rate: 72 bpm (08/31/22 07:32:00) Respiratory Rate: 18 br/min (08/31/22 07:32:00) Systolic Blood Pressure: 125 mm Hg (08/31/22 07:32:00) Diastolic Blood Pressure: 59 mm Hg (08/31/22 07:32:00) Blood pressure sites: Arm, right (08/31/22 07:32:00) Mean Arterial Pressure: 81 mm Hg (08/31/22 07:32:00) Pulse Pressure: 66 mm Hg (08/31/22 07:32:00) Oxygen Saturation: 100 % (08/31/22 07:32:00) Mode of Delivery (Oxygen): Room air (08/31/22 07:32:00) Early Warning Score: 3 (08/31/22 08:24:35) ? . Physical Exam Constitutional: Alert, in no distress. Mental Status: Oriented to person, place and time. Head: Normocephalic. Neck: Supple, Full range of motion. Respiratory: Clear to auscultation. No wheezing, rales or rhonchi. Cardiovascular: S1 S2 regular. No murmurs, rubs or gallops. Gastrointestinal: Abdomen soft, non-tender, non-distended. Normal bowel sounds. Neurologic: Cranial nerves II-XII grossly intact. No focal neurological deficits. Skin: No rashes or lesions. No petechiae or purpura.?? Musculoskeletal: No cyanosis or clubbing. No gross deformities. Psychiatric: Normal mood and affect Consultants cardiology: Kenton LARA, Damon Lopez Pending Results No Pending Results Follow-Up Appointments Added Follow Up ?Time Frame ?Comments Eldon LARA, Brian?2 to 3 days Post Discharge Care Discharge ?08/31/22 10:17:00 EST Home Health Face to Face ^HomeHealthFTF 28_ minutes spent on discharge Tata Gonsalez RN: PERFORM Event Display: Patient Education/Instruction Authored Date: [id number] Inpatient Adult Discharge Instructions [address] [address] Name: TANJA VIDAL : 1935 Visit: 08/30/2022 11:57:00 Current Date: 08/31/2022 10:27 Account: [id number] Inpatient Adult Discharge Instructions We would like to thank you for allowing us to assist you with your healthcare needs. The following includes patient education materials and information regarding your injury/illness. Our entire staff strives to provide an excellent experience for our patients and their families. PLEASE ENSURE YOU FOLLOW-UP PER THE INSTRUCTIONS BELOW! ?? YOUR OPINION IS IMPORTANT TO US! Please complete the survey you may receive by mail or email. Your feedback will be used to make improvements to the healthcare experiences of our patients and their families. Surveys are administered by [employer] ?? If further treatment with your primary care physician or another doctor is recommended, it is important for you to keep the appointment. Call your primary care physician or return to the Emergency Department immediately if your condition worsens, fails to improve, or new symptoms develop. If you need to find a doctor, you can call [facility] [employer] for a referral at [phone] or toll free at [phone] ([email or web address]) or log in to [email or web address].. ?? You can view and manage your care through the patient portal or by using a health care alba of your choosing. [email or web address] is a website that allows you to securely view your medical information including your hospital discharge summary, office visit summaries, medications and follow-up visits. You can also request appointments, renew medications, and request access to your medical information using a health care alba of your choosing, or just ask a question. You can enroll at [email or web address] or register during your next office visit. You have been discharged from [facility], Patient Care Unit: [facility]. If you have any questions regarding these instructions after you leave, please call us and we will be happy to assist you. [facility] Your Care Team Attending Physician Phuc Aguilar MD Consulting Providers Damon Fung MD Discharging Providers Phuc Aguilar MD Reason for Admission Pt had lab work done yesterday, coming from home due to elevated INR of 8.6, coumadin level above 3. No c/o of pain Tests Performed Below is a partial list of the tests performed during your hospitalization. You may have had other tests and procedures not included in this list. Please discuss all test results with your provider. BUN CBC CBC w/ Differential COVID-19 (2019 Novel Coronavirus) PCR Creatinine Electrolytes Glucose Level GLUCOSE POC INR Lytes Magnesium Level Primary Care Provider Eldon LARA, Brian Advance Directive Health Care Proxy on File No No qualifying data available. Discharge Vitals Temperature: 98.4 DegF Pulse Rate: 72 bpm Respiratory Rate: 18 br/min Systolic Blood Pressure: 125 mm Hg Diastolic Blood Pressure: 59 mm Hg Oxygen Saturation: 100 % Studies Pending All tests and labs ordered during this hospital stay have been completed unless listed below. Pleasediscuss all pending results with your provider listed above in these instructions. ?? No incomplete studies found What to do next Instructions From Your Doctor Discharge Orders You Need to Schedule the Following Appointments Follow Up with??Brian Colón MD When??Within 2 to 3 days Where: [address], [address] [place] [address]- Discharge Medications TANJA VIDAL :1935 Visit Date:08/30/2022 Medications: Please continue your medications until treatment is completed or stopped by your provider. Medications not listed below should be discontinued. Discuss any questions related to medications with your provider. What How Much When Why Instructions Next Dose Changed Potassium Chloride (Potassium Chloride (Eqv-K-Tab) 20 mEq oral tablet, extended release) Follow home schedule Changed Warfarin (warfarin 2 mg oral tablet) Hold Coumadin until he have follow-up INR check in Coumadin clinic on Friday. ??Follow-up with PVC ?? Unchanged Albuterol/ Ipratropium (albuterol-ipratropium 3 mg-0.5 mg/ 3 ml inhalation solution) 3 Milliliter Inhalation 4 times a day Follow home schedule Unchanged Atorvastatin (atorvastatin 20 mg oral tablet) 1 tab(s) Oral Daily at Bedtime 08/31 PM Unchanged Durable Medical Equipment (Aerochamber w/ Mask (Large)) See instructions COPD (chronic obstructive pulmonary disease) for COPD ?? Unchanged Durable Medical Equipment (Aerochamber w/ Mask (Large)) See instructions for COPD ?? Unchanged Durable Medical Equipment (Glucometer Generic) See instructions Use Glucometer to check your BS three times a day before meals and as needed. ?? Unchanged Durable Medical Equipment (GLucometer test strips) See instructions Use Glucometer to check your BS three times a day before meals and as needed. ?? Unchanged Durable Medical Equipment (Lancets) See instructions Use Glucometer to check your BS three times a day before meals and as needed. ?? Unchanged Durable Medical Equipment (Nebulizer/ Compressor) See instructions for COPD ?? Unchanged Durable Medical Equipment (Nebulizer/ Compressor) See instructions COPD (chronic obstructive pulmonary disease) for COPD ?? Unchanged Metformin (metFORMIN 500 mg oral tablet) 1 tab(s) Oral Twice a day 08/31 PM Unchanged Metoprolol (metoprolol succinate 200 mg oral capsule, extended release) 1 capsule Oral Daily Duration: 30 Days 09/01 AM Unchanged Omeprazole (omeprazole 20 mg oral enteric coated capsule) 1 capsule Oral Daily 09/01 AM Unchanged torsemide (torsemide 20 mg oral tablet) 2 tab(s) Oral Twice a day 08/31 PM ?? What How Much When Comments Stop Taking apixaban (apixaban 5 mg oral tablet) 1 tab(s) Oral Twice a day Test Results Below is a partial list of the most recent Laboratory test results done prior to this discharge. You may have had other tests and procedures not included in this list. Please discuss all test results with your provider. BUN (08/31/2022) ???BUN - 32 mg/dL CBC (08/31/2022) ???WBC - 8.0 k/mm3???RBC - 4.57 m/mm3???Hgb - 10.8 Gm/dL???Hct - 36.8 %???MCV - 80.5 femtoliters???MCH - 23.6 pg???MCHC - 29.3 g/dL???Platelet Count - 142 k/mm3???RDW-SD - 55.1 femtoliters???MPV - 10.1femtoliters???Nucleated RBC (Automated) - 0.0 #/100 WBC'S???Abs. NRBC - 0.0 k/mm3 CBC w/ Differential (08/30/2022) ???WBC - 7.7 k/mm3???RBC - 4.10 m/mm3???Hgb - 9.9 Gm/dL???Hct - 33.1 %???MCV - 80.7 femtoliters???MCH - 24.1 pg???MCHC - 29.9 g/dL???Platelet Count - 148 k/mm3???RDW-SD - 55.3 femtoliters???MPV - 10.5 femtoliters???Nucleated RBC (Automated) - 0.0 #/100 WBC'S???Abs. NRBC - 0.0 k/mm3???Abs. Neut - 4.3 k/ mm3???Abs. Lymph - 2.1 k/mm3???Abs. Bledsoe - 1.1 k/mm3???Abs. Eo - 0.2 k/mm3???Abs. Baso - 0.1 k/mm3???Neut % - 56.0 %???Lymph % - 27.6 %???Bledsoe % - 13.6 %???Eos % - 1.9 %???Baso % - 0.6 %???Imm Gran - 0.3 %???Abs. Imm Gran - 0.0 k/mm3 COVID-19 (2019 Novel Coronavirus) PCR (08/30/2022) ???COVID-19 PCR Specimen Source - NASAL???COVID-19 PCR Result - NEGATIVE Creatinine (08/31/2022) ???Creatinine-Blood - 1.5 mg/dL???Estimated GFR Creatinine - 46 ML/MIN/1.73 M2 Electrolytes (08/30/2022) ???Sodium - 143 mmol/L???Potassium - 3.7 mmol/L???Chloride - 104 mmol/L???Bicarbonate Level - 29 mmol/L???Anion Gap - 10 Glucose Level (08/30/2022) ???Glucose Level - 132 mg/dL GLUCOSE POC (08/31/2022) ???Glucose, POC - 160 mg/dL INR (08/31/2022) ???INR - 5.4???Protime (PT) - 50.6 seconds Lytes (08/31/2022) ???Sodium - 142 mmol/L???Potassium - 3.8 mmol/L???Chloride - 101 mmol/L???Bicarbonate Level - 32 mmol/L???Anion Gap - 9 Magnesium Level (08/31/2022) ???Magnesium - 2.0 mg/dL Allergies (NKA means No Known Allergies) penicillins Problems Active Problems??(8) COPD (chronic obstructive pulmonary disease)?? Coronary artery disease?? Hypertension?? Lower extremity edema?? PHIL treated with BiPAP?? Presence of implanted infusion pump?? Prostate cancer?? Ulcer of left holliday?? Education Materials Below is the list of Educational Leaflet Providered with your Discharge Instructions. Valuables and Belongings I fully understand and agree that [facility] accepts no responsibility for all my personal property including clothing, toilet articles, radios, jewelry, dentures, hearing aids, rings, money, or any other property that is in my possession or is brought to me after admission. I understand certain valuables may be placed in a hospital safe for a short period of time. I understand that the hospital is not liable for loss or damage due to accident, fire, or other natural occurrence while said property is in the safe. I accept full responsibility for any personal property that I keep with me, and will not hold the hospital responsible in case of loss or disappearance. I acknowledge that i have been encouraged to send valuables and belongings home. ?? Review of Valuable and Belonging List: With patient Date for Pt to Sign Valuables/Belongings: 08/30/22 18:40:00 ?? Other Discharge Information ? Pulmonary Rehab Status?? Pulmonary Rehab Discharge Status?? Respiratory Rate: 18 br/min ? Common Emergency Awareness Tips IS IT A STROKE? Act FAST and Check for these signs: FACE Does the face look uneven? ARM Does one arm drift down? SPEECH Does their speech sound strange? TIME Call at any sign of stroke ?? Heart Attack Signs Chest discomfort: Most heart attacks involve discomfort in the center of the chest and lasts more than a few minutes, or goes away and comes back. It can feel like uncomfortable pressure, squeezing, fullness or pain. Discomfort in upper body: Symptoms can include pain or discomfort in one or both arms, back, neck, jaw or stomach. Shortness of breath: With or without discomfort. Other signs: Breaking out in a cold sweat, nausea, or lightheaded. Remember, MINUTES DO MATTER. If you experience any of these heart attack warning signs, call to get immediate medical attention! ?? Smoking can increase your chances of developing chronic health problems and can cause harmful effects to other family members in your house. If you smoke, you are strongly encouraged to quit. Please call [facility] at [phone] or [phone] ([phone]) or log in to [email or web address] for referrals to smoking cessation programs. ?? The National Suicide Prevention Hotline is available 05/05 if you or someone you know needs to find areason to keep living. By calling 6-345-457-Azullo (4206) you'll be connected to a skilled, trained counselor at a crisis center in your area. INPATIENT DISCHARGE INSTRUCTIONS SIGNATURE PAGE TANJA VIDAL Location:[facility] Registration Date and Time:08/30/2022 11:57 EST Primary Care Physician: Eldon LARA, Brian, I TANJA VIDAL, have received the above patient education materials/instructions and have verbalized understanding. If ambulance or transport services are being used I further acknowledge being given a choice of service. ?? If you need to contact me, please call me at this number: . Patient/Glass Selector Name: Patient/Glass Selector Signature: Relationship to Patient: Witness Name/Signature: Date: Tata Gonsalez RN: PERFORM Event Display: Patient Education Leaflets Authored Date: [id number] International Normalized Ratio ?? international_normalized_ratio International Normalized Ratio Does this test have other names? INR, standardized prothrombin time ?? What is this test? This blood test looks to see how well your blood clots. The international normalized ratio (INR) is a standardized number that's figured out in the lab. Ifyou take blood thinners, also called anticlotting medicines or anticoagulants, it may be important to check your INR. The INR is found using the results of the prothrombin time (PT) test. This measuresthe time it takes for your blood to clot. The INR is an international standard for the PT. ?? Why do I need this test? You may need this test if you take medicines, such as warfarin, that change the way your blood clots. Anticlotting medicines are helpful if you are at risk for a stroke. But if you're in an accident and your blood doesn't clot quickly, you may be at risk of dangerous bleeding. Your healthcare provider uses the INR to know whether your anticlotting medicines are at the right dose or if you need to change the dose. Newer anticlotting medicines don't need INR monitoring and dose changes like warfarin does, so this lab test may not be used for those medicines. You may also need this test to help your healthcare provider diagnose and manage certain health problems, such as liver disease and bleeding disorders. ?? What other tests might I have along with this test? Your healthcare provider will order the PT test first, so that the results can be used to calculatethe INR. In a PT test, chemicals are added to your blood sample, and the lab measures the time in seconds that it takes to clot. Your provider may also order these tests if they are concerned about your liver function or risk ofbleeding: ??? Platelet count ??? Prothrombin time ??? Activated partial thromboplastin time ??? Fibrin D-dimer ??? Fibrinogen level ??? Thrombin time ?? What do my test results mean? Test results may vary depending on your age, gender, health history, and other things. Your test results may be different depending on the lab used. They may not mean you have a problem. Ask your healthcare provider what your test results mean for you. The INR is a ratio, so it's just a number, not a number tied to time or another value. Your resultswill vary according to your age, the medicines you take, and any health problems you have. In general, the higher the number, the longer it takes for your blood to form a clot. Your INR number should be between 2 and 3 if you are taking a blood thinner, but it could be different, depending on your condition. For instance, your INR goal if you are being treated for a mechanical heart valve will be different than your INR for a clot in your leg. The INR goal is usually higherfor mechanical heart valves, especially the mitral valve. That goal is 2.5 to 3.5. Talk with your healthcare provider about what your INR goal is and what it means for you. ?? How is this test done? The test is done with a blood sample. A needle is used to draw blood from a vein in your arm or hand.? Does this test pose any risks? Having a blood test with a needle carries some risks. These include bleeding, infection, bruising, and feeling lightheaded. When the needle pricks your arm or hand, you may feel a slight sting or pain. Afterward, the site may be sore.? What might affect my test results? Certain foods such as green leafy vegetables and any medicines you take may affect your results. This is true if you take warfarin, heparin, or other anticlotting medicines or are being treated for liver disease with vitamin K. It's very important to follow your healthcare provider's instructions forhaving this test.? How do I get ready for this test? You may be asked to stop eating foods that are high in vitamin K before this test. Be sure your healthcare provider knows about all medicines, herbs, vitamins, and supplements you are taking. This includes medicines that don't need a prescription and any illicit drugs you may use. ?? Last Reviewed Date: 2022 ?? 2453-1915 [employer]. All rights reserved. This information is not intended as a substitute for professional medical care. Always follow your healthcare professional's instructions. ?? Patient Care team information Care Team PersonnelName: Kristine Bender RN Position: [facility] RN Member Role: Primary Care Nurse Name: Tatiana Stoddard RN Position: [facility] OB RN Member Role: Primary Care Nurse Name: Shashank Combs RN Position: [facility] RN Member Role: Primary Care Nurse Name: Dariana Givens RN Position: [facility] RN Member Role: Primary Care Nurse Name: Waleska Lopez RN Position: [facility] RN Member Role: Primary Care Nurse Name: Alma Delia Talley RN Position: [facility] RN Member Role: Primary Care Nurse Name: Brian Higgins RN Position: [facility] RN Member Role: Primary Care Nurse Name: Shefali Angel RN Position: [facility] SN RN Member Role: Primary Care Nurse Name: Brian Colón MD Position: Reference Physician Member Role: PCP Address: Address: [address] [place] [address] Name: *Jodie GUEVARA Attending Position: [facility] ED Medicine MD Name: Tata Gonsalez RN Position: [facility] ED RN W/OE and Tasks Member Role: Patient Care Provider Name: Hamlet Browne RN Position: [facility] RN Member Role: Patient Care Provider Care Team Related PersonsName: RODOLFO VIDAL Address: home [address] [place] [address] Name: CESAR VIDAL Address: home [address] [place] [address] Name: BARTOLO RUSSELL Address: home [address] [place] [address]
--- OUTSIDE RECORDS SUMMARY | 2022-11-18 07:53 | XMS_ITS | Continuity of Care Document ---
:1935 Author Organization [facility] Address [address] [place] [address]- Care Team Providers Name Role Phone Brian Colón MD [id number] Date(s): 11/19/19 - 11/19/[address] [address]- [facility] Attending Physician: Brian Colón MD Allergies, Adverse Reactions, [...] 0 Refills, Maintenance, 10/29/19 12:27:00 EST, Solution, [facility], 3 mL Inhalation 4 times [...] 10/28/19 12:01:00 EST, Route to Pharmacy Electronically, [facility], 165, cm, 10/28/19 11:47:00 EST, [...]
--- OUTSIDE RECORDS SUMMARY | 2022-11-18 07:53 | XMS_ITS | Continuity of Care Document ---
:1935 Author Organization [facility] Address [address] [place] [phone]- Care Team Providers Name Role Phone Brian Colón MD [id number] Date(s): 10/26/19 - 11/25/[address] [address]- [facility] Attending Physician: Not on Staff, Attending MD [...] 0 Refills, Maintenance, 10/29/19 12:27:00 EST, Solution, [facility], 3 mL Inhalation 4 [...] 10/28/19 12:01:00 EST, Route to Pharmacy Electronically, [facility], 165, cm, 10/28/19 11:47:00 EST, [...]
--- OUTSIDE RECORDS SUMMARY | 2022-11-18 07:53 | XMS_ITS | Continuity of Care Document ---
:1935 Author Organization [facility] Address [address] [place] [address]- Care Team Providers Name Role Phone Brian Colón MD Primary Care Physician [id number] Date(s): 10/20/19 - 11/24/19 [facility] [address] [place] [address]- [facility] Attending Physician: Arnav Martins MD Admitting Physician: [...] 0 Refills, Maintenance, 10/29/19 12:27:00 EST, Solution, [facility], 3 mL Inhalation 4 [...] 10/28/19 12:01:00 EST, Route to Pharmacy Electronically, [facility], 165, cm, 10/28/19 11:47:00 [...]
--- OUTSIDE RECORDS SUMMARY | 2022-11-18 07:53 | XMS_ITS | Continuity of Care Document ---
:1935 Author Organization [facility] Address [address] [place] [address]- Care Team Providers Name Role Phone Brian Colón MD Primary Care Physician Encounter [facility] Date(s): 12/15/19 - 12/28/[address] [address]- [facility] Discharge Disposition: A-Transfer VNA/Home Health Attending Physician: Marcos Painter MD Admitting Physician: Cedrick Juárez MD Referring Physician: Not on Staff, Referring [...] 0 Refills, Maintenance, 10/29/19 12:27:00 EST, Solution, [facility], 3 mL Inhalation 4 [...] 0 Refills, Maintenance, 12/28/19 10:00:00 EDT, Tablet, [facility], 168, cm, 12/28/19 3:07:00 [...] 0 Refills, Maintenance, 12/28/19 9:40:00 EDT, Tablet, [facility], 168, cm, 12/28/19 3:07:00 [...] Exam Date Time Procedure Performing Provider Status 12/28/19 6:40 AM Chest 2 Views Frontal and Lat Nancy Gomez; Josh (Verified) Notes:(Chest 2 Views Frontal and Lat) Reason For Exam: PostopRESULT: Chest 2 Views Frontal and Lat Chest 2 Views Frontal and Lat Refer to EMR; Reason: Postop; Clinical Question(s): Line Placement; Pneumothorax; Special Instructions: Patient may go unmonitored. Please keep film at back desk; Hx of Present Illness: SOB, HYPOXIA, AND LOWER EXT EDEMA; Other Objective Findings: awake alert and oriented x4 speaks in full clear sentences. 2+ pedal edema in BL lower extremeties with wound to left lower etremety with no drainage, e COMPARISON: 12/20/2019 FINDINGS: LINES AND TUBES: Left-sided pacer LUNGS AND PLEURA: There is ongoing opacity at the left lung base obscuring left hemidiaphragm. No pleural effusion. No pneumothorax. HEART, MEDIASTINUM AND ANDERSON: Heart is normal in size. Normal mediastinal and hilar contour. BONES AND SOFT TISSUES: No acute abnormality. IMPRESSION: No pneumothorax. Opacity at the left lung base obscures the diaphragm. This has increased since recent prior studies and suggest focus of developing pneumonia. WSN: [id number] Ordering Physician: Linda Murray Dictated By: Aline Ding MD Dictated Date/Time: 12/28/19 8:39 am Reviewed By: Aline Ding MD Signed By: Aline Ding MD Signed Date/Time: 12/28/19 8:39 am Transcribed By: PATO Transcribed Date/Time: 12/28/19 8:26 am Exam Date Time Procedure Performing Provider Status 12/20/19 2:37 PM Chest Portable Efrain Zaragoza; Auth (Verified) Notes:(Chest Portable) Reason For Exam: CHFRESULT: Chest Portable Chest Portable Indication: Shortness of breath. COMPARISON: Multiple prior examinations, the most recent 12/15/2019 FINDINGS: LINES AND TUBES: None. LUNGS AND PLEURA: Trace left pleural effusion with compressive atelectasis. No pneumothorax. HEART, MEDIASTINUM AND ANDERSON: The cardiac and mediastinal contours are unchanged. BONES AND SOFT TISSUES: No acute abnormality. IMPRESSION: No change. I have personally reviewed the images and I agree with this report. WSN: [id number] Ordering Physician: Cedrick Juárez Dictated By: Derrek Ahumada MD Dictated Date/Time: 12/20/19 3:54 pm Reviewed By: Kory Mcmanus MD Signed By: Kory Mcmanus MD Signed Date/Time: 12/20/19 3:59 pm Transcribed By: CSHortencia Transcribed Date/Time: 12/20/19 2:44 pm Exam Date Time Procedure Performing Provider Status 12/15/19 1:17 PM Chest Portable Shefali Myers; Auth (Verified) Notes:(Chest Portable) Reason For Exam: CHFRESULT: Chest Portable Chest Portable Reason: CHF; Clinical Question(s): CHF COMPARISON: 10/21/2019 chest radiograph. FINDINGS: LINES AND TUBES: None. LUNGS AND PLEURA: Mild vascular congestion. No overt findings of edema. Possible trace effusions. No pneumothorax. HEART, MEDIASTINUM AND ANDERSON: Heart is normal in size. Normal mediastinal and hilar contour. BONES AND SOFT TISSUES: No acute abnormality. IMPRESSION: 1. No overt CHF. 2. Mild pulmonary vascular congestion. 3. Possible trace effusions. WSN: [id number] Ordering Physician: Adalgisa Morrison Dictated By: Obed Wells MD Dictated Date/Time: 12/15/19 1:35 pm Reviewed By: Obed Wells MD Signed By: Obed Wells MD Signed Date/Time: 12/15/19 1:35 pm Transcribed By: PATO Transcribed Date/Time: 12/15/19 1:31 pm Vital Signs Most recent to oldest 1 2 3 [Reference Range]: Height 168 cm 168 cm 168 cm (12/28/19 8:00 AM) (12/28/19 1:47 AM) (12/27/19 7:5 8 PM) Weight 92.2 kg 93.4 kg 93.4 kg (12/28/19 6:57 AM) (12/27/19 6:54 AM) (12/27/19 5:0 9 AM) Oxygen Saturation [94-100 98 % 96 % 94 % %] (12/28/19 8:00 AM) (12/28/19 1:47 AM) (12/27/19 7:5 8 PM) Pulse Rate [55-90 bpm] 80 bpm 81 bpm 78 bpm (12/28/19 9:03 AM) (12/28/19 8:00 AM) (12/28/19 1:4 7 AM) Body Mass Index 35.5 35.43 [18.5-24.99] *>HHI* *>HHI* (12/16/19 4:13 PM) (12/15/19 5:16 PM) Blood Pressure 120/65 mm Hg 114/60 mm Hg 118/64 mm Hg [90-138/55-84 mm Hg] (12/28/19 9:03 AM) (12/28/19 8:00 AM) ( 0 1:47 AM) Respiratory Rate [16-30 18 br/min 18 br/min 18 br/mi n br/min] (12/28/19 8:00 AM) (12/28/19 1:47 AM) (12/27/19 9:4 8 PM) Temperature [96.8-100.4 97.5 DegF 97.6 DegF 97.7 Deg F DegF] (12/28/19 8:00 AM) (12/28/19 1:47 AM) (12/27/19 7:5 8 PM) Liters per Minute 3 L/min 3 L/min (12/27/19 4:49 PM) (12/27/19 11:51 AM) Mode of Delivery (Oxygen) Room air Room air Room a ir (12/28/19 8:00 AM) (12/28/19 1:47 AM) (12/27/19 7:5 8 PM) Blood pressure sites Arm, right Arm, right Arm, right (12/28/19 8:00 AM) (12/28/19 1:47 AM) (12/27/19 7:5 8 PM) Temperature Route Temporal Temporal Temporal (12/28/19 8:00 AM) (12/28/19 1:47 AM) (12/27/19 7:5 8 PM) Dry Weight 100 kg (12/15/19 5:16 PM) Weight Obtained Via Bed scale Bed scale Bed scale (12/28/19 6:57 AM) (12/27/19 5:09 AM) (12/26/19 5:3 6 AM) Sensory deficits Hearing deficit L, Hearing deficit R 1 (12/15/19 5:16 PM) Mobility assistance Transfer, assist of 1, Ambulate, assist of 1 (12/15/19 5:16 PM) 1Result Comment: bilateral hearing aids Social History Social History Type Response Smoking Status Never (less than 100 in life time) entered on: 08/31/19 Sex Male
[2022-11-18] MEDS: Furosemide 40 MG/4 ML VIAL IVPUSH ×2 (08:17→18:52)
[2022-11-18] MEDS: Nitroglycerin 2 % Oint 1 GM Packet 1 INCH TRANSDERMA (08:17)
[2022-11-18 08:20] LABS: Basophils Absolute Auto 0.1 X10*3/uL (0.0-0.2); Basophils Percent Auto 0.4 % (0-2); Eosinophils Percent Auto 0.3 % (0-4); Hematocrit 28.8 % (42.0-52.0); Hemoglobin 8.4 g/dl (14.0-18.0); Imm Gran Abs Auto 0.07 X10*3/uL (0.00-0.03); Imm Gran Pct Auto 0.6 % (0.0-0.4); Lymphocytes Absolute Auto 1.9 X10*3/uL (1.2-4.9); Lymphocytes Percent Auto 16.7 % (20-40); MANUAL DIFF FLAG SCAN; Mean Corpuscular HGB Conc 29.2 g/dl (31.0-36.0); Mean Corpuscular Hemoglobin 22.3 pg (27.0-33.0); Mean Corpuscular Volume 76.4 fL (80.0-98.0); Mean Platelet Volume 9.9 fL (9.4-12.4); Monocytes Absolute Auto 1.7 X10*3/uL (0.1-1.2); Monocytes Percent Auto 14.9 % (2-11); Neutrophils Absolute Auto 7.8 x10*3/uL (2.0-8.3); Neutrophils Percent Auto 67.1 % (45-73); Platelet Count 147 X10*3/uL (160-400); Red Blood Count 3.77 X10*6/uL (4.60-5.80); Red Cell Distribution Width 17.9 % (11.0-16.0); SCAN SMEAR FLAG 1; White Blood Count 11.6 X10*3/uL (4.8-10.8)
[2022-11-18 08:24] LABS: Anion Gap 18 (12-20); Blood Urea Nitrogen 47 mg/dL (9-16); Calcium 9.2 mg/dL (8.4-10.2); Carbon Dioxide 25 mmol/L (22-29); Chloride 101 mmol/L (96-108); Creatinine Clr Calc Pharmacy 34.9; Estimated Glomerular Filt Rate 37; Glucose Random 146 mg/dL (60-115); Sodium 140 mmol/L (135-145)
[2022-11-18 08:31] LABS: B Type Natriuretic Peptide 614 pg/mL (<100)
[2022-11-18 08:32] LABS: Troponin-I High Sensitivity 22.2 ng/L (<3.5-35.0)
[2022-11-18 08:44] LABS: SLIDE REVIEW VERIFIED
[2022-11-18 08:53] LABS: Influenza A PCR NEGATIVE (Negative); Influenza B PCR NEGATIVE (Negative); Resp Syncy Virus RNA Qual PCR NEGATIVE (Negative); SARS COV2 PCR INHOUSE NEGATIVE (Negative)
--- NOTE | 2022-11-18 11:34 | PHA.MEDREC ---
Pharmacy Consult ? Medication Reconciliation Pharmacy has completed the medication reconciliation.
[2022-11-18 11:47] LABS: Iron 23 mcg/dL (45-160); Percent Iron Saturation 6 % (15-50); Total Iron Binding Capacity 359 mcg/dL (228-428); Unsaturated Iron Binding 336 ug/dL
--- NOTE | 2022-11-18 11:48 | P.HPHOSP_ITS ---
History of Present Illness Date of Service: 11/18/22 Chief Complaint: sob 87M PMH CKD III, CAD, PHIL, DM, obesity, chronic afib s/p AV node ablation and pacer, COPD, CHF with new reduced EF on outpatient echo, chronic iron defeciency anemia, hearing loss, presented with sob. patient is a vague historian, arrived via EMS with 1 day history of sob, worsening lower extremity edema, abdominal bloating. denies chest pain, saturating 88% on room air. pulm edema on cxr. Review of Systems Review of Systems: Yes all other systems are reviewed and are negative [facility] Medical History (Updated 11/18/22 @ 11:14 by Pedro Cunha MD) CAD (coronary artery disease) Chronic a-fib CKD (chronic kidney disease), stage III COPD (chronic obstructive pulmonary disease) Diabetes mellitus PHIL (obstructive sleep apnea) Surgical History (Updated 11/18/22 @ 11:12 by Pedro Cunha MD) Artificial cardiac pacemaker H/O hernia repair S/P appendectomy S/P AV albertina ablation S/P total knee arthroplasty Social History Advance Directives: Yes Advance Directives Information Provided: Yes Advance Directives on File: No Meds Allergies Allergy/AdvReac Type Severity Reaction Status Date / Time No Known Allergies Allergy Verified 11/18/22 07:32 Active Medications: Current Medications Atorvastatin Calcium (Atorvastatin Calcium 20 Mg Tablet) 20 mg PO BEDTIME [facility] Dextrose (Dextrose 50 % 25 Gm/50 Ml Syringe) 25 gm IVPUSH Q15M PRN; Protocol PRN Reason: per Hypoglycemia Standing Ord. Furosemide (Furosemide 40 Mg/4 Ml Vial) 40 mg IVPUSH BID@0900,1800 [facility]; Protocol Glucose (Glucose Gel 15 Gm Gel..Gram.) 15 gm PO Q15M PRN; Protocol PRN Reason: per Hypoglycemia Standing Ord. Insulin Human Lispro (Insulin Lispro 100 Unit/Ml 3 Ml Vial) 0 unit SUBCUT QIDACHS [facility]; Protocol Metoprolol Succinate (Metoprolol Succinate Er 100 Mg Tab.Er.24h) 200 mg PO DAILY [facility]; Protocol Omeprazole (Omeprazole 20 Mg Capsule.Dr) 20 mg PO DAILY@0630 [facility] Pharmacy Consult (Consult Rx Perform Med Rec) 1 each MISCELLANE ONCE PRN PRN Reason: Consult order Rivaroxaban (Rivaroxaban 15 Mg Tablet) 15 mg PO DAILY@2100 [facility] Sodium Chloride (0.9 % Sodium Chloride Flush 3 Ml Syringe) 3 ml IVFLUSH QSHIFT [facility] Home Medications Medication Instructions Recorded Confirmed Last Taken Type atorvastatin 20 mg tablet 1 tab PO DAILY 11/18/22 11/18/22 Unknown History cholecalciferol (vitamin D3) 25 25 mcg PO BID 11/18/22 11/18/22 Unknown History mcg (1,000 unit) tablet (Vitamin D3) metformin 500 mg tablet 1 tab PO BID 11/18/22 11/18/22 Unknown History metoprolol succinate 200 mg 1 tab PO DAILY 11/18/22 11/18/22 Unknown History tablet,extended release 24 hr omeprazole 20 mg capsule,delayed 1 cap PO DAILY 11/18/22 11/18/22 Unknown Histo ry release potassium chloride 20 mEq 1 tab PO BID 11/18/22 11/18/22 Unknown History tablet,extended release rivaroxaban 15 mg tablet (Xarelto) 1 tab PO DAILY 11/18/22 11/18/22 Unknown History torsemide 20 mg tablet 2 tab PO BID 11/18/22 11/18/22 Unknown History Physical Exam Vital Signs and Narrative: Vital Signs: Last Vital Signs Temp 98.1 F 11/18/22 07:29 Pulse 71 11/18/22 10:00 Resp 18 11/18/22 10:00 BP 128/64 11/18/22 10:00 Pulse Ox 93 11/18/22 10:32 O2 Del Method 11/18/22 10:32 O2 Flow Rate 2 11/18/22 10:32 BMI result Body Mass Index 37.1 General: AO X 3, no acute distress, hard of hearing Resp: Crackles bilateral, no accessory muscles used CVS: S1,S2,RRR GI: soft, non tender, non distended Neuro: motor grossly intact, alert Results Labs 11/18/22 07:56 11/18/22 07:56 Labs: Laboratory Results - last 24 hr 11/18/22 11/18/22 11/18/22 07:56 07:56 07:56 MCV 76.4 L MCH 22.3 L MCHC 29.2 L RDW 17.9 H Plt Count 147 L MPV 9.9 Immature Gran % (Auto) 0.6 H Neut % (Auto) 67.1 Lymph % (Auto) 16.7 L Ogle % (Auto) 14.9 H Eos % (Auto) 0.3 Baso % (Auto) 0.4 Lymph # (Auto) 1.9 Ogle # (Auto) 1.7 H Eos # (Auto) 0.0 Baso # (Auto) 0.1 Abs Immat Gran (auto) 0.07 H Absolute Neuts (auto) 7.8 Absolute Nucleated RBC 0.000 Nucleated RBC % (auto) 0.0 Smear Tech's Comments VERIFIED Anion Gap 18 Estim Creat Clear Calc 34.9 Estimated GFR 37 Random Glucose 146 H Calcium 9.2 Iron 23 L TIBC 359 % Saturation 6 L Unsat Iron Binding 336 Troponin I High Sens B-Natriuretic Peptide Influenza Type A (PCR) NEGATIVE Influenza Type B (PCR) NEGATIVE RSV RNA Qual (PCR) NEGATIVE SARS-CoV-2 RNA (RT-PCR) NEGATIVE 11/18/22 11/18/22 07:56 07:56 MCV MCH MCHC RDW Plt Count MPV Immature Gran % (Auto) Neut % (Auto) Lymph % (Auto) Ogle % (Auto) Eos % (Auto) Baso % (Auto) Lymph # (Auto) Ogle # (Auto) Eos # (Auto) Baso # (Auto) Abs Immat Gran (auto) Absolute Neuts (auto) Absolute Nucleated RBC Nucleated RBC % (auto) Smear Tech's Comments Anion Gap Estim Creat Clear Calc Estimated GFR Random Glucose Calcium Iron TIBC % Saturation Unsat Iron Binding Troponin I High Sens 22.2 B-Natriuretic Peptide 614 H Influenza Type A (PCR) Influenza Type B (PCR) RSV RNA Qual (PCR) SARS-CoV-2 RNA (RT-PCR) Imaging Radiologist's Impressions: Impressions Chest X-Ray 11/18/22 08:50 FINDINGS/IMPRESSION: The study is quite limited by portable technique and low lung volumes. Findings suggest bilateral interstitial prominence with patchy, bilateral, predominantly perihilar interstitial and possibly groundglass and/or alveolar infiltrates. The findings raise suspicion for pulmonary edema; superimposed pneumonia cannot be confirmed or excluded. There is a question of a hazy density at the left base, raising the possibility of small effusion. No effusion is suspected on the right. No pneumothorax is evident. The cardiac silhouette is suboptimally evaluated. The tip of a left subclavian pulse generator device lead projects over the right ventricle. There is an old, healed fracture of the left clavicle. There are degenerative changes of the spine. Assessment and Plan (1) Congestive heart failure: Status: Acute Plan 87M PMH CKD III, CAD, PHIL, DM, obesity, chronic afib s/p AV node ablation and pacer, COPD, CHF with new reduced EF on outpatient echo, chronic iron defeciency anemia, hearing loss, presented with sob. Acute hypoxic respiratory failure secondary to acute on chronic CHF with reduced ejection fraction IV Lasix wean O2 as tolerated cardio eval Toprol chronic iron deficiency anemia continue PPI outpatient GI permanent atrial fibrillation status post AV albertina ablation and pacer placement continue Xarelto coronary disease Xarelto and Lipitor CKD 3 stable obesity patient reports recent 20 lb weight loss DVT prophylaxis with Xarelto DNR/DNI patient with acute on chronic CHF leading to acute hypoxia requiring oxygen s upplementation and IV diuresis, due to advanced age and frailty is at high risk for further decompensation, therefore, likely to require at least 2 midnights inpatient. Time Spent With Patient Time: Total time managing care of this patient today ____ minutes. Quality Stroke Does the patient have a stroke diagnosis?: No VTE Prior VTE?: No VTE Risk Level:: Medical - moderate - high VTE Device Contraindication: Treatment Not Indicated VTE Drug Contraindication: N/A - Med Ordered
--- OUTSIDE RECORDS SUMMARY | 2022-11-18 12:02 | XMS_ITS ---
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 3149 11069 mellitus with diabetic peripheral angiopathy without gangrene ALLERGIES Substance Reaction Event Type Date Status Mold Unknown Drug Allergy Jul, Active Penicillin Unknown Drug Allergy Jul, Active Dust Mites Unknown Drug Allergy Jul, Active ENCOUNTERS Encounter Location Date Diagnosis [facility] [address] [place] [address] Oct, [place] [address] [facility] [address] [place] [address] Jul, Type 2 di abetes mellitus [place], [place] with diabetic pe ripheral [address] angiopathy witho ut gangrene E11.51 ; Tinea unguium B35.1 ; Pain in right toe(s) M79 .674 ; Pain in left toe (s) M79.675 ; Other hammer toe(s) (acquired ), right foot M20.41 and Other hammer toe(s) (a cquired), left foot M20.42 [facility] [address] [place] [address] May, Type 2 di abetes mellitus [facility] [place] diabetic pe ripheral [address] angiopathy witho ut gangrene E11.51 ; Tinea unguium B35.1 ; Pain in right toe(s) M79 .674 ; Pain in left toe (s) M79.675 ; Other hammer toe(s) (acquired ), right foot M20.41 and Other hammer toe(s) (a cquired), left foot M20.42 [facility] [place] [address] February, Type 2 di abetes mellitus [place], [place] with diabetic pe ripheral [address] angiopathy witho ut gangrene E11.51 ; Tinea unguium B35.1 ; Pain in right toe(s) M79 .674 and Pain in left toe (s) M79.675 [facility] [place] [address] Dec, Type 2 di abetes mellitus [place], [place] with diabetic pe ripheral [address] angiopathy witho ut gangrene E11.51 ; Tinea pedis B35.3 ; Ti atul unguium B35.1 ; Pain in right toe(s) M79 .674 and Pain in left toe (s) M79.675 [facility] [place] [address] Oct, Type 2 di abetes mellitus [place], [place] with diabetic pe ripheral [address] angiopathy witho ut gangrene E11.51 ; Tinea unguium B35.1 ; Pain in right toe(s) M79 .674 ; Pain in left toe (s) M79.675 and Amber a pedis B35.3 [facility] [place] [address] Jul, Type 2 di abetes mellitus [facility] [place] diabetic pe [place]pheral [address] angiopathy witho ut gangrene E11.51 ; Tinea unguium B35.1 ; Pain in right toe(s) M79 .674 ; Pain in left toe (s) M79.675 ; Other hammer toe(s) (acquired ), right foot M20.41 and Other hammer toe(s) (a cquired), left foot M20.42 [facility] [place] [address] May, Type 2 di abetes mellitus [facility] [place] diabetic pe ripheral [address] angiopathy witho ut gangrene E11.51 ; Tinea unguium B35.1 ; Pain in right toe(s) M79 .674 ; Pain in left toe (s) M79.675 ; Other hammer toe(s) (acquired ), left foot M20.42 and Other hammer toe(s) (a cquired), right foot M20.4 [facility] [address] February, Tinea severo uium B35.1 ; Pain [facility] [place] in right toe(s) M79.674 ; [address] Pain in left toe (s) M79.675 and Type 2 diabetes mellitu s with diabetic periphe ral angiopathy witho ut gangrene E11.51 [facility] [address] Dec, Tinea severo uium B35.1 ; Pain [facility] [place] in right toe(s) M79.674 ; [address] Pain in left toe (s) M79.675 and Type 2 diabetes mellitu s with diabetic periphe ral angiopathy witho ut gangrene E11.51 [place] [address] Oct, Tinea severo uium B35.1 ; Pain [facility] [place] in right toe(s) M79.674 ; [address] Pain in left toe (s) M79.675 and Type 2 diabetes mellitu s with diabetic periphe ral angiopathy witho ut gangrene E11.51 [facility] [address] Aug, Tinea severo uium B35.1 ; [facility] [place] Other hammer toe (s) [address] (acquired), righ t foot M20.41 ; Pain in right toe(s) M79.674 ; Other hammer toe(s) (a cquired), left foot M20.42 ; Pain in left toe(s) M79. 675 and Type 2 diabetes mellitus with diabetic pe ripheral angiopathy witho ut gangrene E11.51 [facility] [place] [address] May, Tinea severo uium B35.1 ; [place], [place] Other hammer toe (s) [address] (acquired), righ t foot M20.41 ; Pain in right toe(s) M79.674 ; Other hammer toe(s) (a cquired), left foot M20.42 ; Pain in left toe(s) M79. 675 and Type 2 diabetes mellitus with diabetic pe ripheral angiopathy witho ut gangrene E11.51 [facility] [place] [address] February, Tinea severo uium B35.1 ; [place] Other hammer toe (s) [address] (acquired), righ t foot M20.41 ; Pain in right toe(s) M79.674 ; Other hammer toe(s) (a cquired), left foot M20.42 ; Pain in left toe(s) M79. 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 675 [facility] [address] Sep, Atheroscl erosis of [place] artery of [place] [address] extremities, wit h unspecified pres ence of clinical manifes tation I70.203 ; Tinea unguium B35.1 ; Pain in right toe(s) M79.674 a nd Pain in left toe(s) M79. 675 [facility] [address] Sep, [place] [address] [place] [address] Jul, Tinea severo uium B35.1 ; Pain [facility] [place] in right toe(s) M79.674 [address] and Pain in left toe(s) M79.675 [facility] [address] [place] [address] Apr, Tinea severo uium B35.1 ; Pain [facility] [place] in right toe(s) M79.674 [address] and Pain in left toe(s) M79.675 [facility] [address] [place] [address] February, Tinea severo uium B35.1 ; [facility] M79.674 [address] and Pain in left toe(s) M79.675 [facility] [address] [place] [address] Nov, Tinea severo uium B35.1 ; Pain [facility] [place] in right toe(s) M79.674 [address] and Pain in left toe(s) M79.675 [facility] [address] [place] [address] Aug, Tinea severo uium B35.1 ; [facility] [place] Tinea pedis B35. 3 ; Pain [address] in right toe(s) M79.674 and Pain in left toe(s) M79.675 [facility] [address] Jun, [place] [address] [facility] [address] [place] [address] Jun, Tinea severo uium B35.1 ; [facility] [place] Tinea pedis B35. 3 ; Pain [address] in right toe(s) M79.674 and Pain in left toe(s) M79.675 [facility] [address] May, [place] [address] [facility] [address] [place] [address] May, [place] [address] [facility] [address] Mar, [place] [address] [facility] [address] Mar, [place] [address] [facility] [address] [facility] [address] Mar, Tinea severo uium B35.1 ; [facility] [place] Tinea pedis B35. 3 ; Pain [address] in right toe(s) M79.674 and Pain in left toe(s) M79.675 [facility] [address] [place] [address] Jan, Tinea severo uium B35.1 ; [facility] B35. 3 ; Pain [address] in right toe(s) M79.674 and Pain in left toe(s) M79.675 [facility] [address] Nov, [place] [address] [facility] [place] [address] Nov, Tinea severo uium B35.1 ; [facility] [place] Tinea pedis B35. 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 [address] ; Pain in right toe(s) M79.674 and Pain in left toe(s) M79.675 [facility] [address] [place] [address] Mar, Tinea severo uium B35.1 ; Pain [facility] [place] in right toe(s) M79.674 [address] and Pain in left toe(s) M79.675 [facility] [address] Mar, [place] [address] [facility] [address] Dec, Tinea severo uium B35.1 ; Pain [facility] [place] in right toe(s) M79.674 [address] and Pain in left toe(s) M79.675 [facility] [address] 10 Dec, 2016 [place] [address] [facility] [address] 14 Sep, 2016 Tinea severo uium B35.1 ; [place] Tinea pedis B35. 3 ; Pain [address] in right toe(s) M79.674 and Pain in left toe(s) M79.675 [facility] [address] 14 Jun, 2016 Tinea severo uium B35.1 ; [place] Tinea pedis B35. 3 ; [place] [address] in right toe(s) M79.674 and Pain in left toe(s) M79.675 IMMUNIZATIONS Vaccine Route Administration Date Status Influenza Unknown Jul 13, 2020 Administered SOCIAL HISTORY Qualifiers Date Never Smoker REASON FOR REFERRAL Reason Consult Notes Referring Provider First Name Dusty Referring Provider Last Name Yannick Referring Provider Specialty Podiatry Referring Provider email [email or web address] Referred Provider Brian Colón FUNCTIONAL STATUS PLAN OF CARE Activity Details Future Appointment Provider Name:Dusty Lanier , 2022-12-04 10:45:00 AM, [facility] [place] [address], [place], [address], Referral Consult Notes, Brian Campos i Future/Pending Procedure 45281-EBHFDDK NAIL, 6 OR MOR E Future/Pending Procedure 20295-XRMG SKIN LESIONS, 2 T O 4 Future/Pending Procedure 38236-VACLNBC NAIL, 6 OR MOR E Future/Pending Procedure 52469-CHVT SKIN LESIONS, 2 T O 4 Future/Pending Procedure 64916-KBDZAIC NAIL, 6 OR MOR E Future/Pending Procedure 22746-TUKC SKIN LESIONS, 2 T O 4 Future/Pending Procedure 79249-LHUWBEZ NAIL, 6 OR MOR E Future/Pending Procedure 21203-LHYL SKIN LESIONS, 2 T O 4 Future/Pending Procedure 91441-CCHZUSN NAIL, 6 OR MOR E Future/Pending Procedure 05079-HDTP SKIN LESIONS, 2 T O 4 Future/Pending Procedure 02107-DNJAZKL NAIL, 6 OR MOR E Future/Pending Procedure 40933-XFSH SKIN LESIONS, 2 T O 4 Future/Pending Procedure 62246-CBMGSNS NAIL, 6 OR MOR E Future/Pending Procedure 16723-XDAS SKIN LESIONS, 2 T O 4 Future/Pending Procedure 22676-CVFLTOP NAIL, 6 OR MOR E Future/Pending Procedure 11726-ULGP SKIN LESIONS, 2 T O 4 Future/Pending Procedure 39050-HTOUXKQ NAIL, 6 OR MOR E Future/Pending Procedure 30565-IOFL SKIN LESIONS, 2 T O 4 Future/Pending Procedure 58524-CJGKXDZ NAIL, 6 OR MOR E Future/Pending Procedure 98957-SOVE SKIN LESIONS, 2 T O 4 Future/Pending Procedure 08284-NRUEASS NAIL, 6 OR MOR E Future/Pending Procedure 95134-WTHJ SKIN LESIONS, 2 T O 4 Future/Pending Procedure 49712-JLDSMSL NAIL, 6 OR MOR E Future/Pending Procedure 23990-QTPW SKIN LESIONS, 2 T O 4 Future/Pending Procedure 50711-CRHIGIZ NAIL, 6 OR MOR E Future/Pending Procedure 87384-PMDM SKIN LESIONS, 2 T O 4 Future/Pending Procedure 74012-ZBLKQRL NAIL, 6 OR MOR E Future/Pending Procedure 82124-AJQA SKIN LESIONS, 2 T O 4 Future/Pending Procedure 46062-WJODAVJ NAIL, 6 OR MOR E Future/Pending Procedure 73464-QNTA SKIN LESIONS, 2 T O 4 Future/Pending Procedure 09925-GOKVZIA NAIL, 6 OR MOR E Future/Pending Procedure 09739-CAGGBVN NAIL, 6 OR MOR E Future/Pending Procedure 99775-UNAWKEP NAIL, 6 OR MOR E Future/Pending Procedure 44391-UGOLOYC NAIL, 6 OR MOR E Future/Pending Procedure 21078-TPTZNSP NAIL, 6 OR MOR E Future/Pending Procedure 61679-RRSVHCG NAIL, 6 OR MOR E Future/Pending Procedure 83400-FAVDWEX NAIL, 6 OR MOR E Future/Pending Procedure 07632-RDTQSST NAIL, 6 OR MOR E Future/Pending Procedure 02828-MAGKVPY NAIL, 6 OR MOR E Future/Pending Procedure 12875-TVVIFKN NAIL, 6 OR MOR E Future/Pending Procedure 42312-NHMLXYN NAIL, 6 OR MOR E Future/Pending Procedure 82020-TTJIPSC NAIL, 6 OR MOR E Future/Pending Procedure 12237-WRHKVCW NAIL, 6 OR MOR E Future/Pending Procedure 00783-JWGFMRX NAIL, 6 OR MOR E Future/Pending Procedure 34866-GOTMIIX NAIL, 6 OR MOR E VITAL SIGNS [...] Body Site DEBRIDE NAIL, 6 OR MORE Jul 15, 2019 TRIM SKIN LESIONS, 2 TO 4 February 17, 2020 DEBRIDE NAIL, 6 OR MORE Nov 25, 2018 DEBRIDE NAIL, 6 OR MORE February 18, 2019 DEBRIDE NAIL, 6 OR MORE January 02, 2022 DEBRIDE NAIL, 6 OR MORE Sep 07, 2018 DEBRIDE NAIL, 6 OR MORE Jun 25, 2018 DEBRIDE NAIL, 6 OR MORE April 02, 2017 DEBRIDE NAIL, 6 OR MORE April 08, 2018 TRIM SKIN LESIONS, 2 TO 4 March 06, 2022 TRIM SKIN LESIONS, 2 TO 4 Aug 08, 2021 DEBRIDE NAIL, 6 OR MORE January 28, 2018 DEBRIDE NAIL, 6 OR MORE Oct 24, 2021 TRIM SKIN LESIONS, 2 TO 4 May 17, 2021 DEBRIDE NAIL, 6 OR MORE Nov 20, 2017 DEBRIDE NAIL, 6 OR MORE Dec 06, 2019 TRIM SKIN LESIONS, 2 TO 4 Aug 05, 2022 TRIM SKIN LESIONS, 2 TO 4 May 24, 2020 DEBRIDE NAIL, 6 OR MORE Sep 10, 2017 TRIM SKIN LESIONS, 2 TO 4 Sep 22, 2019 TRIM SKIN LESIONS, 2 TO 4 May 23, 2022 TRIM SKIN LESIONS, 2 TO 4 Aug 17, 2020 DEBRIDE NAIL, 6 OR MORE March 08, 2021 DEBRIDE NAIL, 6 OR MORE January 04, 2021 DEBRIDE NAIL, 6 OR MORE Oct 26, 2020 DEBRIDE NAIL, 6 OR MORE Aug 08, 2021 DEBRIDE NAIL, 6 OR MORE May 24, 2020 DEBRIDE NAIL, 6 OR MORE January 01, 2017 DEBRIDE NAIL, 6 OR MORE Sep 25, 2016 TRIM SKIN LESIONS, 2 TO 4 Oct 24, 2021 TRIM SKIN LESIONS, 2 TO 4 Oct 26, 2020 DEBRIDE NAIL, 6 OR MORE Aug 17, 2020 DEBRIDE NAIL, 6 OR MORE May 17, 2021 TRIM SKIN LESIONS, 2 TO 4 January 04, 2021 TRIM SKIN LESIONS, 2 TO 4 March 08, 2021 TRIM SKIN LESIONS, 2 TO 4 January 02, 2022 DEBRIDE NAIL, 6 OR MORE Jun 26, 2016 TRIM SKIN LESIONS, 2 TO 4 Dec 06, 2019 DEBRIDE NAIL, 6 OR MORE Aug 05, 2022 DEBRIDE NAIL, 6 OR MORE Sep 22, 2019 DEBRIDE NAIL, 6 OR MORE May 23, 2022 DEBRIDE NAIL, 6 OR MORE February 17, 2020 DEBRIDE NAIL, 6 OR MORE March 06, 2022 DEBRIDE NAIL, 6 OR MORE May 06, 2019 DEBRIDE NAIL, 6 OR MORE Jul 02, 2017 RESULTS No Results REASON FOR VISIT Insurance Providers [facility] Member Patient Patient Patient Patient Patient Subscriber Subscriber Subscriber Group Insurance Plan Plan Plan Plan ID Relationship Address Phone Name Date of ID Name Date of No Type Insurance Insurance Insurance Coverage to Subscriber Address Phone Name Dates Medicare National [id number] Medicare self [place] 1935 [id number] [facility] [address] [place] [address] [employer] [phone] [employer] self [place] 19 [id number] Shield [id number] [address] [place] [address] [facility] n [address] MEDICAL (GENERAL) HISTORY Type Description Date Medical [...] Surgical History cardiac pacemaker 01/2020 Hospitalization History [facility] fo r biopsy left 04/2019 inner thigh Hospitalization History [facility] for 5 days - AFIB 08/2049 Hospitalization History [facility] Pacemaker 01/2020
[2022-11-18 12:04] LABS: Ferritin 26 ng/mL (20-250)
--- NOTE | 2022-11-18 15:35 | PC.NURSE ---
report received from ANDREW Wright Pt verbalizes no pain at this time, awaiting bed assignment. No apparent distress, this RN assisted pt from bedside commode back to bed
[2022-11-18 16:47] LABS: Glucose, Whole Blood 169 mg/dL (60-115)
--- NOTE | 2022-11-18 17:33 | PC.NURSE ---
attempted to call report to floor, no answer [phone]
--- NOTE | 2022-11-18 17:50 | PC.NURSE ---
report given to ANDREW Castillo. awaiting for transport
[2022-11-18 18:31] LABS: Glucose, Whole Blood 196 mg/dL (60-115)
[2022-11-18 19:48] LABS: Glucose, Whole Blood 167 mg/dL (60-115)
[2022-11-19] VITALS (8 sets, daily range): BP systolic 96–124; BP diastolic 54–67; PULSE 70–87; RESP 18–20; TEMP 36.3–37.1; O2SAT 90–99
[2022-11-19] MEDS: 0.9 % Sodium Chloride Flush 3 ML SYRINGE IVFLUSH ×3 (05:19→15:22)
--- NOTE | 2022-11-19 06:17 | PM.EVENT ---
Event Note Date of Service: 11/19/22 Event Note: pt hypoxic dropping to 80s and 70s w exertion. rpt chest xray shows possible infiltrate. will tx with abx nic terry Time Spent With Patient Time: Total time managing care of this patient today ____ minutes.
[2022-11-19 06:55] LABS: Hematocrit 26.4 % (42.0-52.0); Hemoglobin 7.7 g/dl (14.0-18.0); Mean Corpuscular HGB Conc 29.2 g/dl (31.0-36.0); Mean Corpuscular Hemoglobin 22.2 pg (27.0-33.0); Mean Corpuscular Volume 76.1 fL (80.0-98.0); Mean Platelet Volume 10.5 fL (9.4-12.4); Platelet Count 125 X10*3/uL (160-400); Red Blood Count 3.47 X10*6/uL (4.60-5.80); White Blood Count 9.5 X10*3/uL (4.8-10.8)
[2022-11-19 07:16] LABS: Anion Gap 18 (12-20); Blood Urea Nitrogen 43 mg/dL (9-16); Carbon Dioxide 26 mmol/L (22-29); Chloride 100 mmol/L (96-108); Estimated Glomerular Filt Rate 40; Glucose Fasting 129 mg/dL (60-99); Potassium 3.2 mmol/L (3.3-5.1); Sodium 141 mmol/L (135-145)
[2022-11-19 07:38] LABS: Magnesium 1.4 mg/dL (1.6-2.6)
[2022-11-19 07:49] LABS: Glucose, Whole Blood 117 mg/dL (60-115)
[2022-11-19] MEDS: cefTRIAXone sodium 1 GM in 0.9 % Sodium Chloride 50 ML IV (08:05)
[2022-11-19] MEDS: Atorvastatin Calcium 20 MG TABLET PO ×2 (08:06→20:33)
[2022-11-19] MEDS: Cholecalciferol (Vitamin D3) 25 MCG TABLET PO ×2 (08:06→20:33)
[2022-11-19] MEDS: Furosemide 40 MG/4 ML VIAL IVPUSH ×2 (08:06→17:03)
[2022-11-19] MEDS: Azithromycin 500 MG TABLET PO (08:06)
[2022-11-19] MEDS: Omeprazole 20 MG CAPSULE.DR PO (08:07)
[2022-11-19] MEDS: Metoprolol Succinate ER 100 MG TAB.ER.24H 200 MG PO (08:07)
[2022-11-19] MEDS: Magnesium Oxide 400 MG TABLET PO ×2 (08:07→17:04)
[2022-11-19] MEDS: Rivaroxaban 15 MG TABLET PO ×2 (08:08→20:34)
--- NOTE | 2022-11-19 08:53 | HO.PM.IMPN ---
Subjective Subjective Date of Service: 11/19/22 Interval History: cc: sob interval history:brief hypoxia to 70s early AM, now feeling well and on room air Physical Exam Vital Signs: Vital Signs: Last Vital Signs Temp 97.3 F 11/19/22 07:43 Pulse 73 11/19/22 07:43 Resp 20 11/19/22 07:43 BP 116/57 L 11/19/22 07:43 Pulse Ox 96 11/19/22 07:43 O2 Del Method 11/19/22 07:43 O2 Flow Rate 2 11/19/22 03:33 BMI result Body Mass Index 37.1 General: AO X 3, no acute distress Resp: CTA bilateral, no accessory muscles used CVS: S1,S2,RRR GI: soft, non tender, non distended Neuro: motor grossly intact, alert Psych: appropriate affect, appropriate insight Objective Data Active Medications Atorvastatin Calcium (Atorvastatin Calcium 20 Mg Tablet) 20 mg PO BEDTIME [facility] Last Admin: 11/19/22 08:06 Dose: 20 mg Documented By: DESTINY Azithromycin (Azithromycin 500 Mg Tablet) 500 mg PO Q24H [facility] Last Admin: 11/19/22 08:06 Dose: 500 mg Documented By: DESTINY Dextrose (Dextrose 50 % 25 Gm/50 Ml Syringe) 25 gm IVPUSH Q15M PRN; Protocol PRN Reason: per Hypoglycemia Standing Ord. Furosemide (Furosemide 40 Mg/4 Ml Vial) 40 mg IVPUSH BID@0900,1800 [facility]; Protocol Last Admin: 11/19/22 08:06 Dose: 40 mg Documented By: DESTINY Glucose (Glucose Gel 15 Gm Gel..Gram.) 15 gm PO Q15M PRN; Protocol PRN Reason: per Hypoglycemia Standing Ord. Ceftriaxone Sodium 1 gm/ (Sodium Chloride) 50 mls @ 100 mls/hr IV Q24H [facility] Last Admin: 11/19/22 08:05 Dose: 100 mls/hr Documented By: DESTINY Insulin Human Lispro (Insulin Lispro 100 Unit/Ml 3 Ml Vial) 0 unit SUBCUT QIDACHS [facility]; Protocol Last Admin: 11/19/22 08:11 Dose: Not Given Documented By: DESTINY Non-Admin Reason: No Insulin Coverage Magnesium Oxide (Magnesium Oxide 400 Mg Tablet) 400 mg PO BIDPC [facility] Last Admin: 11/19/22 08:07 Dose: 400 mg Documented By: DESTINY Metoprolol Succinate (Metoprolol Succinate Er 100 Mg Tab.Er.24h) 200 mg PO DAILY [facility]; Protocol Last Admin: 11/19/22 08:07 Dose: 200 mg Documented By: DESTINY Omeprazole (Omeprazole 20 Mg Capsule.Dr) 20 mg PO DAILY@0630 [facility] Last Admin: 11/19/22 08:07 Dose: 20 mg Documented By: DESTINY Pharmacy Consult (Consult Rx Perform Med Rec) 1 each MISCELLANE ONCE PRN PRN Reason: Consult order Potassium Chloride (Potassium Chloride Er 20 Meq Tab.Er.Prt) 40 meq PO ONCE ONE Stop: 11/19/22 08:53 Rivaroxaban (Rivaroxaban 15 Mg Tablet) 15 mg PO DAILY@2100 [facility] Last Admin: 11/19/22 08:08 Dose: 15 mg Documented By: DESTINY Sodium Chloride (0.9 % Sodium Chloride Flush 3 Ml Syringe) 3 ml IVFLUSH QSHIFT [facility] Last Admin: 11/19/22 08:08 Dose: 3 ml Documented By: DESTINY Vitamin D (Cholecalciferol (Vitamin D3) 25 Mcg Tablet) 25 mcg PO BID [facility] Last Admin: 11/19/22 08:06 Dose: 25 mcg Documented By: DESTINY Labs 11/19/22 06:10 11/19/22 06:10 Labs: Laboratory Results - last 24 hr 11/18/22 11/18/22 11/18/22 07:56 07:56 16:43 MCV MCH MCHC RDW Plt Count MPV Absolute Nucleated RBC Nucleated RBC % (auto) Anion Gap Estim Creat Clear Calc Estimated GFR POC Glucose 169 H Fasting Glucose Calcium Magnesium Iron 23 L TIBC 359 % Saturation 6 L Unsat Iron Binding 336 Ferritin 26 Influenza Type A (PCR) NEGATIVE Influenza Type B (PCR) NEGATIVE RSV RNA Qual (PCR) NEGATIVE SARS-CoV-2 RNA (RT-PCR) NEGATIVE 11/18/22 11/18/22 11/19/22 18:25 19:43 06:10 MCV 76.1 L MCH 22.2 L MCHC 29.2 L RDW 18.0 H Plt Count 125 L MPV 10.5 Absolute Nucleated RBC 0.000 Nucleated RBC % (auto) 0.0 Anion Gap Estim Creat Clear Calc Estimated GFR POC Glucose 196 H 167 H Fasting Glucose Calcium Magnesium Iron TIBC % Saturation Unsat Iron Binding Ferritin Influenza Type A (PCR) Influenza Type B (PCR) RSV RNA Qual (PCR) SARS-CoV-2 RNA (RT-PCR) 11/19/22 11/19/22 06:10 07:45 MCV MCH MCHC RDW Plt Count MPV Absolute Nucleated RBC Nucleated RBC % (auto) Anion Gap 18 Estim Creat Clear Calc 37.0 Estimated GFR 40 POC Glucose 117 H Fasting Glucose 129 H Calcium 9.0 Magnesium 1.4 L* Iron TIBC % Saturation Unsat Iron Binding Ferritin Influenza Type A (PCR) Influenza Type B (PCR) RSV RNA Qual (PCR) SARS-CoV-2 RNA (RT-PCR) Assessment and Plan (1) CKD (chronic kidney disease), stage III: Status: Acute Plan 87M PMH CKD III, CAD, PHIL, DM, obesity, chronic afib s/p AV node ablation and pacer, COPD, CHF with new reduced EF on outpatient echo, chronic iron defeciency anemia, hearing loss, presented with sob. Acute hypoxic respiratory failure secondary to acute on chronic CHF with reduced ejection fraction (new from reported recent outpatient echo) ?IV Lasix now on room air ?cardio eval ?Toprol transient severe hypoxia doubt pneumonia given quick recovery will dc abx and monitor ?chronic iron deficiency anemia ?continue PPI and monitor h and h while on xarelto hypomagenesemia and hypokalemia replace and monitor ?permanent atrial fibrillation ?status post AV albertina ablation and pacer placement ?continue Xarelto ?coronary disease ?Xarelto and Lipitor ?CKD 3 ?stable ?obesity weight loss recommended ?DVT prophylaxis with Xarelto ?DNR/DNI reason for continued hospitalization:iv diuresis, electrolyte abnormalities Time Spent With Patient Time: Total time managing care of this patient today ____ minutes. Quality Stroke Does the patient have a stroke diagnosis?: No VTE Prior VTE?: No VTE Risk Level:: Medical - moderate - high VTE Device Contraindication: Treatment Not Indicated VTE Drug Contraindication: N/A - Med Ordered
[2022-11-19] MEDS: Potassium Chloride ER 20 MEQ TAB.ER.PRT 40 MEQ PO (09:41)
--- NOTE | 2022-11-19 11:02 | PM.CNCAR ---
History of Present Illness History of Present Illness Date of Service: 11/19/22 Requesting physician: Pedro Cunha Consult reason: atrial fibrillation and congestive heart failure Chief complaint: CHF Narrative: I was consulted to see the patient for progressive symptoms of shortness of breath and acute hypoxemic respiratory failure secondary to congestive heart failure. Patient has prior history of congestive heart failure is says for about a year he has been dealing with this condition and was admitted to [facility] which is his primary hospital were year ago and was diuresed about 50 lb as per him. He has prior history of chronic atrial fibrillation status post AV albertina ablation and a pacemaker placement, and has been advised by his shuttle filler for an upgrade to Bi V device but he is declined, this is due to worsening heart failure syndrome and cardiomyopathy. 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 He also has history of diabetes, chronic anemia which is suspected to be iron deficient anemia related oral anticoagulant therapy. Patient has no known history of coronary artery disease and myocardial infarction or stenting. Patient present hospital with sudden shortness of breath and was noted to be hypoxic respiratory failure with chest x-ray findings consistent with pulmonary edema as well as BNP elevation. He continues to have a patchy infiltrate which may represent atelectasis or pneumonia. His current symptoms of shortness of breath have improved but still appears to be short of breath and is coughing continuously during the interview. He denies any prolonged palpitation irregular heartbeat. Does have abdominal distension but says that this is better. He also has leg edema. He lives at home with his . He takes all his medications regularly says 99% of the time. Review of Systems Constitutional: Constitutional: Reports fatigue and Reports weakness Eyes: Eyes: Reports no additional eye complaints Cardiovascular: Cardiovascular: Reports Abdominal Distension, Denies chest pain, Reports leg edema, Reports lightheadedness, Denies palpitations, Reports dyspnea on exertion and Reports orthopnea Respiratory: Respiratory: Reports cough and Reports dyspnea on exertion Gastrointestinal: Gastrointestinal: Reports no additional gastrointestinal complaints Genitourinary: Genitourinary: Reports no additional male genitourinary complaints Musculoskeletal: Musculoskeletal: Reports no additional musculoskeletal complaints Integumentary/Breasts: Skin/Breast: Reports system reviewed and no additional complaints, except as docu Neurologic: Reports system reviewed and no additional complaints, except as documented and Reports weakness Psychiatric: Psychiatric: Reports no additional psychiatric complaints Endocrine: Endocrine: Reports fatigue and Denies palpitations [facility] Past Medical History Medical History CAD (coronary artery disease) Chronic a-fib CKD (chronic kidney disease), stage III COPD (chronic obstructive pulmonary disease) Diabetes mellitus PHIL (obstructive sleep apnea) Surgical History Surgical History Artificial cardiac pacemaker H/O hernia repair S/P appendectomy S/P AV albertina ablation S/P total knee arthroplasty Social History Social History Household Members: Spouse Housing: House Do you presently have visiting nurse or other home services: No Patient Tobacco Use Status: Never used Tobacco Second Hand Smoke Exposure: No Use of substances other than those prescribed or required for medical reasons: No Currently Displaying Signs/Symptoms of Drug Intoxication Withdrawal: No Any prior treatment program specific to substance use: No Have you been hit, kicked, punched, or otherwise hurt by someone within the past year? If so, by whom?: No Do you feel safe in your current relationship?: Yes Is there a partner from a previous relationship who is making you feel unsafe now?: No Are you made to feel afraid or neglected: No Advance Directives: Yes Advance Directives Information Provided: Yes Advance Directives on File: No Advance Directives Date on File: 11/18/22 Do you have thoughts of harming others: None Do you have a plan to hurt others: No Plan Recently lost weight without trying: No Eating poorly because of decreased appetite: No Nutrition Risks: No Nutritional Risk Poor oral hygiene: No Meds Allergies Allergy/AdvReac Type Severity Reaction Status Date / Time No Known Allergies Allergy Verified 11/18/22 07:32 Active Medications: Current Medications Atorvastatin Calcium (Atorvastatin Calcium 20 Mg Tablet) 20 mg PO BEDTIME [facility] Last Admin: 11/19/22 08:06 Dose: 20 mg Dextrose (Dextrose 50 % 25 Gm/50 Ml Syringe) 25 gm IVPUSH Q15M PRN; Protocol PRN Reason: per Hypoglycemia Standing Ord. Furosemide (Furosemide 40 Mg/4 Ml Vial) 40 mg IVPUSH BID@0900,1800 [facility]; Protocol Last Admin: 11/19/22 08:06 Dose: 40 mg Glucose (Glucose Gel 15 Gm Gel..Gram.) 15 gm PO Q15M PRN; Protocol PRN Reason: per Hypoglycemia Standing Ord. Insulin Human Lispro (Insulin Lispro 100 Unit/Ml 3 Ml Vial) 0 unit SUBCUT QIDACHS [facility]; Protocol Last Admin: 11/19/22 08:11 Dose: Not Given Magnesium Oxide ([facility] 400 Mg Tablet) [facility] Admin: 11/19/22 08:07 Dose: 400 mg Metoprolol Succinate (Metoprolol Succinate Er 100 Mg Tab.Er.24h) 200 mg PO DAILY [facility]; Protocol Last Admin: 11/19/22 08:07 Dose: 200 mg Omeprazole (Omeprazole 20 Mg Capsule.Dr) 20 mg PO DAILY@0630 [facility] Last Admin: 11/19/22 08:07 Dose: 20 mg Pharmacy Consult (Consult Rx Perform Med Rec) 1 each MISCELLANE ONCE PRN PRN Reason: Consult order Rivaroxaban (Rivaroxaban 15 Mg Tablet) 15 mg PO DAILY@2100 [facility] Last Admin: 11/19/22 08:08 Dose: 15 mg Sodium Chloride (0.9 % Sodium Chloride Flush 3 Ml Syringe) [facility] Last Admin: 11/19/22 08:08 Dose: 3 ml Vitamin D (Cholecalciferol (Vitamin D3) 25 Mcg Tablet) 25 mcg PO BID [facility] Last Admin: 11/19/22 08:06 Dose: 25 mcg Home Medications Medication Instructions Recorded Confirmed Last Taken Type atorvastatin 20 mg tablet 1 tab PO DAILY 11/18/22 11/18/22 Unknown History cholecalciferol (vitamin D3) 25 25 mcg PO BID 11/18/22 11/18/22 Unknown History mcg (1,000 unit) tablet (Vitamin D3) metformin 500 mg tablet 1 tab PO BID 11/18/22 11/18/22 Unknown History metoprolol succinate 200 mg 1 tab PO DAILY 11/18/22 11/18/22 Unknown History tablet,extended release 24 hr omeprazole 20 mg capsule,delayed 1 cap PO DAILY 11/18/22 11/18/22 Unknown History release potassium chloride 20 mEq 1 tab PO BID 11/18/22 11/18/22 Unknown History tablet,extended release rivaroxaban 15 mg tablet (Xarelto) 1 tab PO DAILY 11/18/22 11/18/22 Unknown History torsemide 20 mg tablet 2 tab PO BID 11/18/22 11/18/22 Unknown History Physical Exam Vital Signs: Vital Signs: Last Vital Signs Temp 98.0 F 11/19/22 10:48 Pulse 71 11/19/22 10:48 Resp 20 11/19/22 10:48 BP 99/56 L 11/19/22 10:48 Pulse Ox 97 11/19/22 10:48 O2 Del Method 11/19/22 10:48 O2 Flow Rate 2 11/19/22 03:33 BMI result Body Mass Index 37.1 Const: General: cooperative, alert, awake, in distress mild and respiratory and tired appearing Nutritional Appearance: overweight Orientation/consciousness: patient oriented x3 HEENT: Head: Yes normocephalic and Yes atraumatic Neck: Neck: Yes trachea midline and Yes supple Resp: Effort & Inspection: normal respiratory effort Auscultation: no crackles, no wheezes and diminished lung sounds Cardio: Jugular venous distension: JVD Rate: regular rate Rhythm: regular rhythm Heart sounds: S1 normal heart sound present, S2 normal heart sound present, no click, no gallops and no murmurs GI: Inspection: Yes distended Auscultation: normal bowel sounds Neuro: General: patient oriented x3 and no focal motor deficits Extrem: General: No clubbing, No cyanosis and Yes edema Objective Labs and Meds 11/19/22 06:10 11/19/22 06:10 Lab results: Laboratory Results - last 24 hr 11/18/22 11/18/22 11/18/22 07:56 16:43 18:25 WBC RBC Hgb Hct MCV MCH MCHC RDW Plt Count MPV Absolute Nucleated RBC Nucleated RBC % (auto) Sodium Potassium Chloride Carbon Dioxide Anion Gap BUN Creatinine Estim Creat Clear Calc Estimated GFR POC Glucose 169 H 196 H Fasting Glucose Calcium Magnesium Iron 23 L TIBC 359 % Saturation 6 L Unsat Iron Binding 336 Ferritin 26 11/18/22 11/19/22 11/19/22 19:43 06:10 06:10 WBC 9.5 RBC 3.47 L Hgb 7.7 L Hct 26.4 L MCV 76.1 L MCH 22.2 L MCHC 29.2 L RDW 18.0 H Plt Count 125 L MPV 10.5 Absolute Nucleated RBC 0.000 Nucleated RBC % (auto) 0.0 Sodium 141 Potassium 3.2 L Chloride 100 Carbon Dioxide 26 Anion Gap 18 BUN 43 H Creatinine 1.65 H Estim Creat Clear Calc 37.0 Estimated GFR 40 POC Glucose 167 H Fasting Glucose 129 H Calcium 9.0 Magnesium 1.4 L* Iron TIBC % Saturation Unsat Iron Binding Ferritin 11/19/22 07:45 WBC RBC Hgb Hct MCV MCH MCHC RDW Plt Count MPV Absolute Nucleated RBC Nucleated RBC % (auto) Sodium Potassium Chloride Carbon Dioxide Anion Gap BUN Creatinine Estim Creat Clear Calc Estimated GFR POC Glucose 117 H Fasting Glucose Calcium Magnesium Iron TIBC % Saturation Unsat Iron Binding Ferritin EKG shows ventricular paced rhythm with underlying atrial fibrillation Imaging Radiologist's impression: Impressions Chest X-Ray 11/19/22 04:59 IMPRESSION: * Small bilateral pleural effusions suspected. * Retrocardiac opacity could represent atelectasis or infiltrate. Assessment and Plan (1) Decompensated heart failure: Status: Acute Decompensated congestive heart failure in this elderly gentleman which appears to be secondary to systolic dysfunction from prior history. Will obtain last echocardiogram from his primary shellfish grower is office. He is currently on metoprolol therapy for neurohormonal modulation currently on torsemide therapy. He has had prior hospitalization related to this. 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 Also contributing factors being advancing age as well as significant anemia. Will consider transfusing 1 unit to maintain hematocrit over 30. He has no active bleeding issues at this point in time. Continue IV diuresis and if he does not respond adequately will require Lasix drip. His intake and output have not been charted well. This needs to be taking care of. Also add Diovan 20 mg b.i.d. to his regimen. Follow renal function closely. Replace potassium and magnesium aggressively. Overall prognosis is guarded. I supported the decision for possible cardiac resynchronization therapy but he currently does not want to think about it. He has no obvious prior signs of ischemic heart disease. Will need to obtain old records. Incentive spirometry needs to be pursued. If remains hypoxemic consider noncontrast chest CT. (2) Chronic a-fib: Status: Acute Chronic atrial fibrillation status post AV albertina ablation and pacer dependence at this point in time. Continue current anticoagulation with Xarelto but he has significant anemia which is a comorbidity the for his heart failure hospitalization. Consider Watchman device in the future. Again patient does not want to think about any additional procedures at this point time. Discussed with him risk for stroke without oral anticoagulation therapy and he is willing to continue to take oral anticoagulation therapy. Will need outpatient workup in GI follow-up in consultation. (3) Cardiac pacemaker in situ: Status: Acute Cardiac pacemaker in-situ, working well by electrocardiogram in by monitoring. Patient is pacer dependent. Will follow up with you. Time Spent With Patient Time: Total time managing care of this patient today ____ minutes. Procedures Date of Service Date of Service: 11/19/22
[2022-11-19 11:09] LABS: Glucose, Whole Blood 188 mg/dL (60-115)
--- NOTE | 2022-11-19 11:30 | MHC.CM.PN ---
pt lives with his has [facility] 2x weekly 2hrs each time pt is covid vax x 2 has a ride home from his neighbors dc plan home
[2022-11-19] MEDS: Valsartan 40 MG TABLET 20 MG PO ×2 (12:02→20:33)
[2022-11-19] MEDS: Insulin Lispro 100 UNIT/ML 3 ML VIAL SUBCUT ×2 (12:03→17:03)
[2022-11-19 16:01] LABS: Glucose, Whole Blood 151 mg/dL (60-115)
[2022-11-19 19:42] LABS: Glucose, Whole Blood 135 mg/dL (60-115)
[2022-11-20] VITALS (12 sets, daily range): BP systolic 90–162; BP diastolic 43–72; PULSE 67–85; RESP 14–20; TEMP 36.3–37.6; O2SAT 95–100
[2022-11-20] MEDS: 0.9 % Sodium Chloride Flush 3 ML SYRINGE IVFLUSH ×2 (00:03→09:01)
[2022-11-20] MEDS: Omeprazole 20 MG CAPSULE.DR PO (05:39)
[2022-11-20 07:22] LABS: Anion Gap 19 (12-20); Blood Urea Nitrogen 45 mg/dL (9-16); Calcium 8.8 mg/dL (8.4-10.2); Carbon Dioxide 26 mmol/L (22-29); Chloride 102 mmol/L (96-108); Creatinine Clr Calc Pharmacy 37.7; Estimated Glomerular Filt Rate 41; Glucose Fasting 123 mg/dL (60-99); Magnesium 1.6 mg/dL (1.6-2.6); Potassium 3.5 mmol/L (3.3-5.1); Sodium 143 mmol/L (135-145)
[2022-11-20 07:47] LABS: Glucose, Whole Blood 118 mg/dL (60-115)
[2022-11-20] MEDS: Metoprolol Succinate ER 100 MG TAB.ER.24H 200 MG PO (08:58)
[2022-11-20] MEDS: Cholecalciferol (Vitamin D3) 25 MCG TABLET PO ×2 (08:59→21:41)
[2022-11-20] MEDS: Furosemide 40 MG/4 ML VIAL IVPUSH (09:00)
[2022-11-20] MEDS: Valsartan 40 MG TABLET 20 MG PO ×2 (09:01→21:39)
[2022-11-20] MEDS: Magnesium Oxide 400 MG TABLET PO ×2 (09:01→17:23)
[2022-11-20 11:53] LABS: Glucose, Whole Blood 190 mg/dL (60-115)
[2022-11-20] MEDS: Insulin Lispro 100 UNIT/ML 3 ML VIAL SUBCUT ×2 (11:58→21:40)
[2022-11-20] MEDS: guaiFENesin LA 600 MG TAB.ER.12H PO ×2 (12:00→21:40)
[2022-11-20] MEDS: Albuterol/Iprat 2.5/0.5MG 3 ML AMPUL.NEB INHALE ×2 (13:25→20:37)
--- NOTE | 2022-11-20 14:23 | P.PNIM_ITS ---
Subjective Subjective Date of Service: 11/20/22 Interval History: Seen and evaluated this morning Still coughing and having difficulty breathing Reports feeling better overall Edema lower extremities No other overnight events Review of Systems Review of Systems: Yes all other systems are reviewed and are negative Physical Exam Vital Signs: Vital Signs: Last Vital Signs Temp 99.7 F 11/20/22 11:18 Pulse 77 11/20/22 13:27 Resp 16 11/20/22 13:27 BP 93/43 L 11/20/22 11:18 Pulse Ox 96 11/20/22 11:18 O2 Del Method 11/20/22 11:18 O2 Flow Rate 2 11/20/22 00:00 BMI result Body Mass Index 37.1 Const: Other: Constitutional : Awake, interactive, not in distress Neck : Normal inspection, Supple Cardiovascular : RRR, no JVP, +1 bilateral lower extremity edema Respiratory : good bilateral air entry, basal fine bilateral crackles, scattered wheezes Gastrointestinal: soft, lax, Normal bowel sounds, Non tender Skin : Warm, Dry Neurological : Alert & oriented x3, No focal deficit Objective Data Active Medications Albuterol/Ipratropium (Albuterol/Iprat 2.5/0.5mg 3 Ml Ampul.Neb) 3 ml INHALE RQ6H WHILE AWAKE [facility] Last Admin: 11/20/22 13:25 Dose: 3 ml Documented By: EDU Atorvastatin Calcium (Atorvastatin Calcium 20 Mg Tablet) 20 mg PO BEDTIME [facility] Last Admin: 11/19/22 20:33 Dose: 20 mg Documented By: FAB Dextrose (Dextrose 50 % 25 Gm/50 Ml Syringe) 25 gm IVPUSH Q15M PRN; Protocol PRN Reason: per Hypoglycemia Standing Ord. Furosemide (Furosemide 40 Mg/4 Ml Vial) 40 mg IVPUSH BID@0900,1800 [facility]; Protocol Last Admin: 11/20/22 09:00 Dose: 40 mg Documented By: NIVIA Glucose (Glucose Gel 15 Gm Gel..Gram.) 15 gm PO Q15M PRN; Protocol PRN Reason: per Hypoglycemia Standing Ord. Guaifenesin (Guaifenesin La 600 Mg Tab.Er.12h) 600 mg PO BID [facility] Last Admin: 11/20/22 12:00 Dose: 600 mg Documented By: NIVIA Insulin Human Lispro (Insulin Lispro 100 Unit/Ml 3 Ml Vial) 0 unit SUBCUT QIDACHS [facility]; Protocol Last Admin: 11/20/22 11:58 Dose: 2 unit Documented By: NIVIA Magnesium Oxide (Magnesium Oxide 400 Mg Tablet) [facility] Last Admin: 11/20/22 09:01 Dose: 400 mg Documented By: NIVIA Metolazone (Metolazone 2.5 Mg Tablet) 2.5 mg PO ONCE ONE Stop: 11/20/22 17:31 Metoprolol Succinate (Metoprolol Succinate Er 100 Mg Tab.Er.24h) 200 mg PO DAILY [facility]; Protocol Last Admin: 11/20/22 08:58 Dose: 200 mg Documented By: NIVIA Omeprazole (Omeprazole 20 Mg Capsule.Dr) 20 mg PO DAILY@0630 [facility] Last Admin: 11/20/22 05:39 Dose: 20 mg Documented By: SHANAE Pharmacy Consult (Consult Rx Perform Med Rec) 1 each MISCELLANE ONCE PRN PRN Reason: Consult order Rivaroxaban (Rivaroxaban 15 Mg Tablet) 15 mg PO DAILY@2100 [facility] Last Admin: 11/19/22 20:34 Dose: 15 mg Documented By: FAB Sodium Chloride (0.9 % Sodium Chloride Flush 3 Ml Syringe) 3 ml IVFLUSH QSHIFT [facility] Last Admin: 11/20/22 09:01 Dose: 3 ml Documented By: NIVIA Valsartan (Valsartan 40 Mg Tablet) 20 mg PO BID [facility]; Protocol Last Admin: 11/20/22 09:01 Dose: 20 mg Documented By: NIVIA Vitamin D (Cholecalciferol (Vitamin D3) 25 Mcg Tablet) 25 mcg PO BID [facility] Last Admin: 11/20/22 08:59 Dose: 25 mcg Documented By: NIVIA Labs 11/20/22 06:34 11/20/22 06:34 Labs: Laboratory Results - last 24 hr 11/19/22 11/19/22 11/19/22 11:18 15:57 19:10 MCV MCH MCHC RDW Plt Count MPV Absolute Nucleated RBC Nucleated RBC % (auto) Anion Gap Estim Creat Clear Calc Estimated GFR POC Glucose 151 H 135 H Fasting Glucose Calcium Magnesium Crossmatch See Detail 11/20/22 11/20/22 11/20/22 06:34 06:34 07:41 MCV 77.8 L MCH 22.7 L MCHC 29.2 L RDW 18.0 H Plt Count 155 L MPV 10.9 Absolute Nucleated RBC 0.020 H Nucleated RBC % (auto) 0.2 Anion Gap 19 Estim Creat Clear Calc 37.7 Estimated GFR 41 POC Glucose 118 H Fasting Glucose 123 H Calcium 8.8 Magnesium 1.6 Crossmatch 11/20/22 11:44 MCV MCH MCHC RDW Plt Count MPV Absolute Nucleated RBC Nucleated RBC % (auto) Anion Gap Estim Creat Clear Calc Estimated GFR POC Glucose 190 H Fasting Glucose Calcium Magnesium Crossmatch Microbiology Microbiology Results: Microbiology 11/19/22 06:32 Blood Culture - Preliminary Blood - Venous No growth after 24 hours. 11/19/22 06:32 Blood Culture - Preliminary Blood - Venous No growth after 24 hours. Assessment and Plan (1) Decompensated heart failure: Status: Acute (2) Symptomatic anemia: Status: Acute Plan 87M PMH CKD III, CAD, PHIL, DM, obesity, chronic afib s/p AV node ablation and pacer, COPD, CHF with new reduced EF on outpatient echo, chronic iron defeciency anemia, hearing loss, presented with sob. Acute hypoxic respiratory failure secondary to acute on chronic CHF with reduced ejection fraction (new from reported recent outpatient echo) Continue?IV Lasix 2.5 mg of metolazone Cardiology input appreciated Continue?Toprol Abx discontinued for low suspecion of pneumonia Incentive spirometry ?chronic iron deficiency anemia Hb of 9 after 1 unit transfusion ?continue PPI and monitor h and h while on xarelto hypomagenesemia and hypokalemia replace and monitor ?permanent atrial fibrillation ?status post AV albertina ablation and pacer placement ?continue Xarelto ?coronary disease ?Xarelto and Lipitor ?CKD 3 ?stable ?obesity weight loss recommended ?DVT prophylaxis with Xarelto ?DNR/DNI reason for continued hospitalization:continue iv diuresis pending safe discharge plan Time Spent With Patient Time: Total time managing care of this patient today ____ minutes. Quality Stroke Does the patient have a stroke diagnosis?: No VTE Prior VTE?: No VTE Risk Level:: Medical - moderate - high VTE Device Contraindication: Treatment Not Indicated VTE Drug Contraindication: N/A - Med Ordered
--- NOTE | 2022-11-20 16:12 | MHC.CM.PN ---
per rounds pt expected to dc tomorrow plan reman is home w/ [facility]
[2022-11-20 16:20] LABS: Glucose, Whole Blood 108 mg/dL (60-115)
--- NOTE | 2022-11-20 16:36 | P.PNCA_ITS ---
Subjective Subjective Date of Service: 11/20/22 Principal diagnosis: CHF Interval history: Patient still appears sloughed overloaded. Says not been responding to di uretics IV as ease at home medication with torsemide. Intake and output chart not adequately maintained. Creatinine in has remained stable. Review of Systems Constitutional: Reports no additional constitutional complaints Cardiovascular: Reports Abdominal Distension, Reports leg edema and Reports dyspnea on exertion Respiratory: Reports cough and Reports dyspnea on exertion Genitourinary: Reports no additional male genitourinary complaints Physical Exam Vital Signs: Last Vital Signs Temp 98.7 F 11/20/22 15:48 Pulse 67 11/20/22 15:48 Resp 19 11/20/22 15:48 BP 90/54 L 11/20/22 15:48 Pulse Ox 95 11/20/22 15:48 O2 Del Method 11/20/22 15:48 O2 Flow Rate 2 11/20/22 00:00 BMI result Body Mass Index 37.1 Const General: cooperative, alert, awake, in distress mild and respiratory and tired appearing Nutritional Appearance: overweight Orientation/consciousness: patient oriented x3 HEENT Head: Yes normocephalic and Yes atraumatic Neck Neck: Yes trachea midline and Yes supple Resp Effort & Inspection: normal respiratory effort Auscultation: crackles, no wheezes and diminished lung sounds Cardio Jugular venous distension: JVD Rate: regular rate Rhythm: regular rhythm Heart sounds: S1 normal heart sound present, S2 normal heart sound present, no click, no gallops and no murmurs GI Inspection: Yes distended Auscultation: normal bowel sounds Neuro General: patient oriented x3 and no focal motor deficits Extrem General: No clubbing, No cyanosis and Yes edema Objective Labs and Meds 11/20/22 06:34 11/20/22 06:34 Lab results: Laboratory Results - last 24 hr 11/19/22 11/19/22 11/20/22 11:18 19:10 06:34 WBC Cancelled RBC Cancelled Hgb Cancelled Hct Cancelled MCV Cancelled MCH Cancelled MCHC Cancelled RDW Cancelled Plt Count Cancelled MPV Cancelled Absolute Nucleated RBC Cancelled Nucleated RBC % (auto) Cancelled Sodium Potassium Chloride Carbon Dioxide Anion Gap BUN Creatinine Estim Creat Clear Calc Estimated GFR POC Glucose 135 H Fasting Glucose Calcium Magnesium Crossmatch See Detail 11/20/22 11/20/22 11/20/22 06:34 07:41 11:44 WBC RBC Hgb Hct MCV MCH MCHC RDW Plt Count MPV Absolute Nucleated RBC Nucleated RBC % (auto) Sodium 143 Potassium 3.5 Chloride 102 Carbon Dioxide 26 Anion Gap 19 BUN 45 H Creatinine 1.62 H Estim Creat Clear Calc 37.7 Estimated GFR 41 POC Glucose 118 H 190 H Fasting Glucose 123 H Calcium 8.8 Magnesium 1.6 Crossmatch 11/20/22 16:15 WBC RBC Hgb Hct MCV MCH MCHC RDW Plt Count MPV Absolute Nucleated RBC Nucleated RBC % (auto) Sodium Potassium Chloride Carbon Dioxide Anion Gap BUN Creatinine Estim Creat Clear Calc Estimated GFR POC Glucose 108 Fasting Glucose Calcium Magnesium Crossmatch Progress Note: A&P Assessment and plan (1) Decompensated heart failure: Status: Acute Assessment and Plan: Decompensated congestive heart failure in this elderly gentleman without ad equate response to IV diuretic boluses with Lasix. Switch to Bumex drip at 0.5 mg an hour. Consider transfusing 1 more unit to maintain hematocrit over 30. Blood pressure is on the lower side. Would be careful up titrating any of his other medications. Will continue metoprolol therapy. If blood pressure remains low will need to discontinue Diovan therapy. Continue strict intake and output chart in adequate maintenance of output record. Continue monitor renal function. Remains very anemic. Check for stool for occult blood. If stool for occult blood is positive should consider stopping his oral anticoagulant therapy till he has a GI workup. As discussed yesterday should consider Watchman device if no obvious source of bleeding is found. Patient is now agreeable to possibly undergo upgrade to his pacing device with cardiac resynchronization therapy as outpatient. Will continue to follow with you Time Spent With Patient Time: Total time managing care of this patient today ____ minutes. Progress Note: Quality Stroke Does the patient have a stroke diagnosis?: No Procedures Date of Service Date of Service: 11/20/22
[2022-11-20 20:11] LABS: Glucose, Whole Blood 168 mg/dL (60-115)
[2022-11-20] MEDS: Rivaroxaban 15 MG TABLET PO (21:40)
[2022-11-20] MEDS: Atorvastatin Calcium 20 MG TABLET PO (21:40)
[2022-11-20] MEDS: Bumetanide 25 MG in Container,Empty 0 ML IVCONT (21:42)
[2022-11-21] VITALS (9 sets, daily range): BP systolic 109–143; BP diastolic 58–74; PULSE 64–90; RESP 16–26; TEMP 36–36.9; O2SAT 93–99
--- NOTE | 2022-11-21 03:17 | PC.NURSE ---
Pt has non prod cough. refused his own cpap at HS. placed on 2L N/C. Pt frequently urinating d/t diuretic but refusing to use urinal for accurate I&Os. Pt prefers to walk to BR to pee.
[2022-11-21] MEDS: Omeprazole 20 MG CAPSULE.DR PO (06:34)
[2022-11-21 07:05] LABS: B Type Natriuretic Peptide 390 pg/mL (<100)
[2022-11-21 07:22] LABS: Anion Gap 17 (12-20); Blood Urea Nitrogen 53 mg/dL (9-16); Calcium 9.1 mg/dL (8.4-10.2); Carbon Dioxide 30 mmol/L (22-29); Chloride 101 mmol/L (96-108); Creatinine Clr Calc Pharmacy 32.6; Estimated Glomerular Filt Rate 34; Glucose Random 132 mg/dL (60-115); Potassium 3.7 mmol/L (3.3-5.1); Sodium 144 mmol/L (135-145)
[2022-11-21 07:53] LABS: Glucose, Whole Blood 110 mg/dL (60-115)
[2022-11-21] MEDS: Albuterol/Iprat 2.5/0.5MG 3 ML AMPUL.NEB INHALE ×3 (08:38→19:28)
[2022-11-21 09:34] LABS: Hematocrit 35.1 % (42.0-52.0); Hemoglobin 10.6 g/dl (14.0-18.0); Mean Corpuscular HGB Conc 30.2 g/dl (31.0-36.0); Mean Corpuscular Hemoglobin 23.5 pg (27.0-33.0); Mean Corpuscular Volume 77.7 fL (80.0-98.0); Mean Platelet Volume 10.1 fL (9.4-12.4); Platelet Count 160 X10*3/uL (160-400); Red Blood Count 4.52 X10*6/uL (4.60-5.80); Red Cell Distribution Width 18.2 % (11.0-16.0); White Blood Count 11.3 X10*3/uL (4.8-10.8)
[2022-11-21] MEDS: Magnesium Oxide 400 MG TABLET PO ×2 (09:35→16:09)
[2022-11-21] MEDS: guaiFENesin LA 600 MG TAB.ER.12H PO ×2 (09:35→21:52)
[2022-11-21] MEDS: Cholecalciferol (Vitamin D3) 25 MCG TABLET PO ×2 (09:35→21:53)
[2022-11-21] MEDS: Metoprolol Succinate ER 100 MG TAB.ER.24H 200 MG PO (09:35)
[2022-11-21] MEDS: Valsartan 40 MG TABLET 20 MG PO ×2 (09:36→21:52)
[2022-11-21] MEDS: 0.9 % Sodium Chloride Flush 3 ML SYRINGE IVFLUSH ×2 (09:41→16:10)
--- NOTE | 2022-11-21 11:26 | P.PNCA_ITS ---
Subjective Subjective Date of Service: 11/21/22 Principal diagnosis: CHF Interval history: Patient continues to cough. Intake and output chart not well recorded, appears as per the nursing staff the patient declined to participate. He says that he has responded well to Bumex drip. Continues to have leg edema and abdominal distension. Shortness of breath has improved. Hematocrit has improved with transfusion. However creatinine is 0 worsen. BNP has improved as well Review of Systems Constitutional: Reports lethargy Cardiovascular: Reports Abdominal Distension, Denies chest pain, Reports leg edema, Denies palpitations and Reports dyspnea on exertion Respiratory: Reports cough and Reports dyspnea on exertion Gastrointestinal: Reports no additional gastrointestinal complaints Genitourinary: Reports no additional male genitourinary complaints Musculoskeletal: Reports no additional musculoskeletal complaints Endocrine: Denies palpitations Physical Exam Vital Signs: Last Vital Signs Temp 98.4 F 11/21/22 07:32 Pulse 89 11/21/22 08:42 Resp 26 H 11/21/22 08:42 BP 142/72 H 11/21/22 07:32 Pulse Ox 94 11/21/22 07:32 O2 Del Method 11/21/22 07:32 O2 Flow Rate 2 11/21/22 03:24 BMI result Body Mass Index 37.1 Const General: cooperative, alert, awake, in distress mild and respiratory and tired appearing Nutritional Appearance: overweight Orientation/consciousness: patient oriented x3 HEENT Head: Yes normocephalic and Yes atraumatic Neck Neck: Yes trachea midline and Yes supple Resp Effort & Inspection: normal respiratory effort Auscultation: crackles, no wheezes and diminished lung sounds Cardio Jugular venous distension: JVD Rate: regular rate Rhythm: regular rhythm Heart sounds: S1 normal heart sound present, S2 normal heart sound present, no click, no gallops and no murmurs GI Inspection: Yes distended Auscultation: normal bowel sounds Neuro General: patient oriented x3 and no focal motor deficits Extrem General: No clubbing, No cyanosis and Yes edema Objective Labs and Meds 11/21/22 08:53 11/21/22 06:11 Lab results: Laboratory Results - last 24 hr 11/19/22 11/20/22 11/20/22 11:18 06:34 11:44 WBC Cancelled RBC Cancelled Hgb Cancelled Hct Cancelled MCV Cancelled MCH Cancelled MCHC Cancelled RDW Cancelled Plt Count Cancelled MPV Cancelled Absolute Nucleated RBC Cancelled Nucleated RBC % (auto) Cancelled Sodium Potassium Chloride Carbon Dioxide Anion Gap BUN Creatinine Estim Creat Clear Calc Estimated GFR POC Glucose 190 H Random Glucose Calcium B-Natriuretic Peptide Blood Type B Positive Antibody Screen NEGATIVE Crossmatch See Detail 11/20/22 11/20/22 11/21/22 16:15 20:04 06:11 WBC RBC Hgb Hct MCV MCH MCHC RDW Plt Count MPV Absolute Nucleated RBC Nucleated RBC % (auto) Sodium 144 Potassium 3.7 Chloride 101 Carbon Dioxide 30 H Anion Gap 17 BUN 53 H Creatinine 1.87 H Estim Creat Clear Calc 32.6 Estimated GFR 34 POC Glucose 108 168 H Random Glucose 132 H Calcium 9.1 B-Natriuretic Peptide Blood Type Antibody Screen Crossmatch 11/21/22 11/21/22 11/21/22 06:11 07:48 08:53 WBC 11.3 H RBC 4.52 L D Hgb 10.6 L D Hct 35.1 L D MCV 77.7 L MCH 23.5 L MCHC 30.2 L RDW 18.2 H Plt Count 160 D MPV 10.1 Absolute Nucleated RBC 0.000 Nucleated RBC % (auto) 0.0 Sodium Potassium Chloride Carbon Dioxide Anion Gap BUN Creatinine Estim Creat Clear Calc Estimated GFR POC Glucose 110 Random Glucose Calcium B-Natriuretic Peptide 390 H Blood Type Antibody Screen Crossmatch Progress Note: A&P Assessment and plan (1) Decompensated heart failure: Status: Acute Assessment and Plan: Patient decompensated heart failure seems to be improving marginally. Continues to appear to be fluid overloaded. Responding better to Bumex drip. His creatinine is bumped up probably suggestive cardiorenal syndrome with somewhat reduced perfusion and reduced stroke volume with diuresis. Continue IV diuresis with Bumex. Avoid metolazone therapy. Importance of intake and output was discussed with the patient and with the nursing staff. Please pursue with this. Replace electrolytes as needed. Continue to trend BMP and BNP. In the long run would most likely benefit from cardiac resynchronization therapy. Also m aintain hematocrit. Out of bed to chair and ambulate if tolerated. (2) Cardiac pacemaker in situ: Status: Acute Assessment and Plan: Cardiac pacemaker in-situ seems to be working well. (3) Chronic a-fib: Status: Acute Assessment and Plan: Chronic atrial fibrillation status post AV albertina ablation. Currently on Xarelto at 15 mg daily. 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 Continues to become anemic, may need to consider Bernard ellis. Will continue to follow with you Time Spent With Patient Time: Total time managing care of this patient today ____ minutes. Progress Note: Quality Stroke Does the patient have a stroke diagnosis?: No Procedures Date of Service Date of Service: 11/21/22
[2022-11-21 11:29] LABS: Glucose, Whole Blood 187 mg/dL (60-115)
[2022-11-21] MEDS: Insulin Lispro 100 UNIT/ML 3 ML VIAL SUBCUT ×3 (12:14→21:51)
--- NOTE | 2022-11-21 14:20 | P.PNIM_ITS ---
Subjective Subjective Date of Service: 11/21/22 Interval History: Seen and evaluated this morning Feels better overall Placed on Bumex drip Edema lower extremities decreasing No other overnight events Review of Systems Review of Systems: Yes all other systems are reviewed and are negative Physical Exam Vital Signs: Vital Signs: Last Vital Signs Temp 98.3 F 11/21/22 12:00 Pulse 67 11/21/22 13:41 Resp 20 11/21/22 13:41 BP 143/74 H 11/21/22 12:00 Pulse Ox 96 11/21/22 12:00 O2 Del Method 11/21/22 12:00 O2 Flow Rate 2 11/21/22 03:24 BMI result Body Mass Index 37.1 Const: Other: Constitutional : Awake, interactive, not in distress Neck : Normal inspection, Supple Cardiovascular : RRR, no JVP, +1 bilateral lower extremity edema Respiratory : good bilateral air entry, basal fine bilateral crackles, scattered wheezes Gastrointestinal: soft, lax, Normal bowel sounds, Non tender Skin : Warm, Dry Neurological : Alert & oriented x3, No focal deficit Objective Data Active Medications Albuterol/Ipratropium (Albuterol/Iprat 2.5/0.5mg 3 Ml Ampul.Neb) 3 ml INHALE RQ6H WHILE AWAKE [facility] Last Admin: 11/21/22 13:41 Dose: 3 ml Documented By: PILAR Atorvastatin Calcium (Atorvastatin Calcium 20 Mg Tablet) 20 mg PO BEDTIME [facility] Last Admin: 11/20/22 21:40 Dose: 20 mg Documented By: AMERICO Dextrose (Dextrose 50 % 25 Gm/50 Ml Syringe) 25 gm IVPUSH Q15M PRN; Protocol PRN Reason: per Hypoglycemia Standing Ord. Glucose (Glucose Gel 15 Gm Gel..Gram.) 15 gm PO Q15M PRN; Protocol PRN Reason: per Hypoglycemia Standing Ord. Guaifenesin (Guaifenesin La 600 Mg Tab.Er.12h) 600 mg PO BID [facility] Last Admin: 11/21/22 09:35 Dose: 600 mg Documented By: PAULINE Bumetanide 25 mg/ IV (Miscellaneous Supplies) 100 mls @ 2 mls/hr IVCONT .Q24H [facility] Last Admin: 11/20/22 21:42 Dose: 0.5 mg/hr, 2 mls/hr Documented By: AMERICO Insulin Human Lispro (Insulin Lispro 100 Unit/Ml 3 Ml Vial) 0 unit SUBCUT QIDACHS [facility]; Protocol Last Admin: 11/21/22 12:14 Dose: 2 unit Documented By: PAULINE Magnesium Oxide (Magnesium [facility]ide 400 Mg Tablet) [facility] Last Admin: 11/21/22 09:35 Dose: 400 mg Documented By: PAULINE Metoprolol Succinate (Metoprolol Succinate Er 100 Mg Tab.Er.24h) 200 mg PO DAILY [facility]; Protocol Last Admin: 11/21/22 09:35 Dose: 200 mg Documented By: PAULINE Omeprazole (Omeprazole 20 Mg Capsule.Dr) 20 mg PO DAILY@0630 [facility] Last Admin: 11/21/22 06:34 Dose: 20 mg Documented By: AMERICO Pharmacy Consult (Consult Rx Perform Med Rec) 1 each MISCELLANE ONCE PRN PRN Reason: Consult order Rivaroxaban (Rivaroxaban 15 Mg Tablet) 15 mg PO DAILY@2100 [facility] Last Admin: 11/20/22 21:40 Dose: 15 mg Documented By: AMERICO Sodium Chloride (0.9 % Sodium Chloride Flush 3 Ml Syringe) 3 ml IVFLUSH QSHIFT [facility] Last Admin: 11/21/22 09:41 Dose: 3 ml Documented By: PALUINE Valsartan (Valsartan 40 Mg Tablet) 20 mg PO BID [facility]; Protocol Last Admin: 11/21/22 09:36 Dose: 20 mg Documented By: PAULINE Vitamin D (Cholecalciferol (Vitamin D3) 25 Mcg Tablet) 25 mcg PO BID [facility] Last Admin: 11/21/22 09:35 Dose: 25 mcg Documented By: PAULINE Labs 11/21/22 08:53 11/21/22 06:11 Labs: Laboratory Results - last 24 hr 11/19/22 11/20/22 11/20/22 11:18 06:34 16:15 MCV Cancelled MCH Cancelled MCHC Cancelled RDW Cancelled Plt Count Cancelled MPV Cancelled Absolute Nucleated RBC Cancelled Nucleated RBC % (auto) Cancelled Anion Gap Estim Creat Clear Calc Estimated GFR POC Glucose 108 Random Glucose Calcium B-Natriuretic Peptide Blood Type B Positive Antibody Screen NEGATIVE Crossmatch See Detail 11/20/22 11/21/22 11/21/22 20:04 06:11 06:11 MCV MCH MCHC RDW Plt Count MPV Absolute Nucleated RBC Nucleated RBC % (auto) Anion Gap 17 Estim Creat Clear Calc 32.6 Estimated GFR 34 POC Glucose 168 H Random Glucose 132 H Calcium 9.1 B-Natriuretic Peptide 390 H Blood Type Antibody Screen Crossmatch 11/21/22 11/21/22 11/21/22 07:48 08:53 11:17 MCV 77.7 L MCH 23.5 L MCHC 30.2 L RDW 18.2 H Plt Count 160 D MPV 10.1 Absolute Nucleated RBC 0.000 Nucleated RBC % (auto) 0.0 Anion Gap Estim Creat Clear Calc Estimated GFR POC Glucose 110 187 H Random Glucose Calcium B-Natriuretic Peptide Blood Type Antibody Screen Crossmatch Microbiology Microbiology Results: Microbiology 11/19/22 06:32 Blood Culture - Preliminary Blood - Venous No growth after 48 hours. 11/19/22 06:32 Blood Culture - Preliminary Blood - Venous No growth after 48 hours. Assessment and Plan (1) Symptomatic anemia: Status: Acute (2) Decompensated heart failure: Status: Acute (3) Chronic a-fib: Status: Acute Plan 87M PMH CKD III, CAD, PHIL, DM, obesity, chronic afib s/p AV node ablation and pacer, COPD, CHF with new reduced EF on outpatient echo, chronic iron defeciency anemia, hearing loss, presented with sob. Acute hypoxic respiratory failure secondary to acute on chronic CHF with reduced ejection fraction (new from reported recent outpatient echo) Change to IV Bumex drip Avoid metolazone Cardiology input appreciated Continue?Toprol Abx discontinued for low suspecion of pneumonia Incentive spirometry Strict intake and output Chronic AFib Continue Xarelto chronic iron deficiency anemia Hb improved to 10.6 after transfusion continue PPI and monitor h and h while on xarelto hypomagenesemia and hypokalemia replace and monitor ?permanent atrial fibrillation ?status post AV albertina ablation and pacer placement ?continue Xarelto ?coronary disease ?Xarelto and Lipitor ?CKD 3 ?stable ?obesity weight loss recommended ?DVT prophylaxis with Xarelto ?DNR/DNI reason for continued hospitalization:continue iv diuresis pending safe discharge plan Time Spent With Patient Time: Total time managing care of this patient today ____ minutes. Quality Stroke Does the patient have a stroke diagnosis?: No VTE Prior VTE?: No VTE Risk Level:: Medical - moderate - high VTE Device Contraindication: Treatment Not Indicated VTE Drug Contraindication: N/A - Med Ordered
[2022-11-21 16:08] LABS: Glucose, Whole Blood 184 mg/dL (60-115)
[2022-11-21] MEDS: Bumetanide 25 MG in Container,Empty 0 ML IVCONT (17:19)
[2022-11-21 20:01] LABS: Glucose, Whole Blood 158 mg/dL (60-115)
[2022-11-21] MEDS: Atorvastatin Calcium 20 MG TABLET PO (21:52)
[2022-11-21] MEDS: Rivaroxaban 15 MG TABLET PO (21:53)
[2022-11-22] VITALS (8 sets, daily range): BP systolic 91–126; BP diastolic 54–64; PULSE 56–84; RESP 16–20; TEMP 36.6; O2SAT 92–96
--- NOTE | 2022-11-22 00:36 | PC.RT ---
Pt refusing CPAP & Home CPAP; states when sat up in a chair he does not use the machine
[2022-11-22] MEDS: Omeprazole 20 MG CAPSULE.DR PO (05:05)
[2022-11-22 07:36] LABS: Glucose, Whole Blood 156 mg/dL (60-115)
[2022-11-22] MEDS: Albuterol/Iprat 2.5/0.5MG 3 ML AMPUL.NEB INHALE ×3 (07:44→19:55)
[2022-11-22 07:49] LABS: Anion Gap 13 (12-20); Blood Urea Nitrogen 44 mg/dL (9-16); Calcium 8.5 mg/dL (8.4-10.2); Carbon Dioxide 32 mmol/L (22-29); Chloride 102 mmol/L (96-108); Creatinine Clr Calc Pharmacy 34.5; Estimated Glomerular Filt Rate 37; Glucose Random 190 mg/dL (60-115); Potassium 3.1 mmol/L (3.3-5.1); Sodium 144 mmol/L (135-145)
[2022-11-22] MEDS: Valsartan 40 MG TABLET 20 MG PO (08:07)
[2022-11-22] MEDS: Insulin Lispro 100 UNIT/ML 3 ML VIAL SUBCUT ×2 (08:07→17:38)
[2022-11-22] MEDS: 0.9 % Sodium Chloride Flush 3 ML SYRINGE IVFLUSH ×3 (08:08→22:03)
[2022-11-22] MEDS: Metoprolol Succinate ER 100 MG TAB.ER.24H 200 MG PO (08:08)
[2022-11-22] MEDS: Cholecalciferol (Vitamin D3) 25 MCG TABLET PO ×2 (08:08→22:02)
[2022-11-22] MEDS: guaiFENesin LA 600 MG TAB.ER.12H PO ×2 (08:08→22:02)
[2022-11-22] MEDS: Magnesium Oxide 400 MG TABLET PO ×2 (08:08→17:48)
[2022-11-22] MEDS: Potassium Chloride Packet 20 MEQ PACKET 40 MEQ PO ×2 (08:20→11:26)
[2022-11-22 08:24] LABS: B Type Natriuretic Peptide 590 pg/mL (<100)
[2022-11-22 10:58] LABS: Glucose, Whole Blood 116 mg/dL (60-115)
--- NOTE | 2022-11-22 11:23 | PM.PNCARD ---
Subjective Subjective Date of Service: 11/22/22 Principal diagnosis: CHF Interval history: Patient is not a good historian today. Again overnight he did not monitor his urine output despite education. Overall urine output appears not adequate. Patient says he has been going to the bathroom. His BNP although today is elevated. He continues to have cough. His creatinine is stable. Review of Systems Constitutional: Reports no additional constitutional complaints Cardiovascular: Denies chest pain, Reports leg edema, Denies lightheadedness, Denies palpitations and Reports dyspnea on exertion Respiratory: Reports cough, Reports excessive phlegm production and Reports dyspnea on exertion Endocrine: Denies palpitations Physical Exam Vital Signs: Last Vital Signs Temp 97.9 F 11/22/22 08:00 Pulse 56 11/22/22 08:00 Resp 18 11/22/22 08:00 BP 126/64 11/22/22 08:00 Pulse Ox 94 11/22/22 08:00 O2 Del Method 11/22/22 08:00 O2 Flow Rate 2 11/21/22 03:24 BMI result Body Mass Index 37.1 Const General: cooperative, alert, awake, in distress mild and respiratory and tired appearing Nutritional Appearance: overweight Orientation/consciousness: patient oriented x3 HEENT Head: Yes normocephalic and Yes atraumatic Neck Neck: Yes trachea midline and Yes supple Resp Effort & Inspection: normal respiratory effort Auscultation: crackles, no wheezes and diminished lung sounds Cardio Jugular venous distension: JVD Rate: regular rate Rhythm: regular rhythm Heart sounds: S1 normal heart sound present, S2 normal heart sound present, no click, no gallops and no murmurs GI Inspection: Yes distended Auscultation: normal bowel sounds Neuro General: patient oriented x3 and no focal motor deficits Extrem General: No clubbing, No cyanosis and Yes edema Objective Labs and Meds 11/21/22 08:53 11/22/22 06:10 Lab results: Laboratory Results - last 24 hr 11/21/22 11/21/22 11/21/22 11:17 16:04 19:56 Sodium Potassium Chloride Carbon Dioxide Anion Gap BUN Creatinine Estim Creat Clear Calc Estimated GFR POC Glucose 187 H 184 H 158 H Random Glucose Calcium B-Natriuretic Peptide 11/22/22 11/22/22 11/22/22 06:10 06:10 07:32 Sodium 144 Potassium 3.1 L Chloride 102 Carbon Dioxide 32 H Anion Gap 13 BUN 44 H Creatinine 1.77 H Estim Creat Clear Calc 34.5 Estimated GFR 37 POC Glucose 156 H Random Glucose 190 H Calcium 8.5 D B-Natriuretic Peptide 590 H 11/22/22 10:52 Sodium Potassium Chloride Carbon Dioxide Anion Gap BUN Creatinine Estim Creat Clear Calc Estimated GFR POC Glucose 116 H Random Glucose Calcium B-Natriuretic Peptide Progress Note: A&P Assessment and plan (1) Decompensated heart failure: Status: Acute Assessment and Plan: Decompensated congestive heart failure in this elderly gentleman related to 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 His urine output is not adequately measure and this makes it difficult clinically to manage his diuretic therapy. Clinically appears to be diuresing well as per him. Strongly suggested him to monitor all his urine output. Continue Bumex drip and additional metolazone. Continue monitor renal function closely. Strict intake and output chart is pursued. Add Jardiance 10 mg to his regimen. Overall prognosis is guarded. Discussed with him the importance of management. His chronic cough appears to be probably related to pneumonia/atelectasis. Consider noncontrast CT to evaluate for lung parenchyma. Continue neurohormonal modulation with low does valsartan as well as metoprolol therapy. (2) Chronic a-fib: Status: Acute Assessment and Plan: Chronic atrial fibrillation status post AV albertina ablation. Currently on full oral anticoagulation Xarelto. Continue monitor hematocrit. If there is further down trending of hematocrit with obvious occult GI blood loss would need to hold his anticoagulation consider Watchman device in the future. Time Spent With Patient Time: Total time managing care of this patient today ____ minutes. Progress Note: Quality Stroke Does the patient have a stroke diagnosis?: No Procedures Date of Service Date of Service: 11/22/22
[2022-11-22] MEDS: Empagliflozin 25 MG TABLET PO (14:06)
--- NOTE | 2022-11-22 15:26 | HO.PM.IMPN ---
Subjective Subjective Date of Service: 11/22/22 Interval History: Seen and evaluated this morning Feels better overall, swelling going down continue on Bumex drip No other overnight events Review of Systems Review of Systems: Yes all other systems are reviewed and are negative Physical Exam Vital Signs: Vital Signs: Last Vital Signs Temp 97.9 F 11/22/22 08:00 Pulse 70 11/22/22 13:58 Resp 19 11/22/22 13:58 BP 126/64 11/22/22 08:00 Pulse Ox 94 11/22/22 08:00 O2 Del Method 11/22/22 08:00 O2 Flow Rate 2 11/21/22 03:24 BMI result Body Mass Index 37.1 Const: Other: Constitutional : Awake, interactive, not in distress Neck : Normal inspection, Supple Cardiovascular : RRR, no JVP, +1 bilateral lower extremity edema Respiratory : good bilateral air entry, basal fine bilateral crackles, scattered wheezes Gastrointestinal: soft, lax, Normal bowel sounds, Non tender Skin : Warm, Dry Neurological : Alert & oriented x3, No focal deficit Objective Data Active Medications Albuterol/Ipratropium (Albuterol/Iprat 2.5/0.5mg 3 Ml Ampul.Neb) 3 ml INHALE RQ6H WHILE AWAKE [facility] Last Admin: 11/22/22 13:58 Dose: 3 ml Documented By: EDU Atorvastatin Calcium (Atorvastatin Calcium 20 Mg Tablet) 20 mg PO BEDTIME [facility] Last Admin: 11/21/22 21:52 Dose: 20 mg Documented By: LETHA Dextrose (Dextrose 50 % 25 Gm/50 Ml Syringe) 25 gm IVPUSH Q15M PRN; Protocol PRN Reason: per Hypoglycemia Standing Ord. Empagliflozin (Empagliflozin 25 Mg Tablet) 25 mg PO DAILY [facility] Last Admin: 11/22/22 14:06 Dose: 25 mg Documented By: NIVIA Glucose (Glucose Gel 15 Gm Gel..Gram.) 15 gm PO Q15M PRN; Protocol PRN Reason: per Hypoglycemia Standing Ord. Guaifenesin (Guaifenesin La 600 Mg Tab.Er.12h) 600 mg PO BID [facility] Last Admin: 11/22/22 08:08 Dose: 600 mg Documented By: NIVIA Bumetanide 25 mg/ IV (Miscellaneous Supplies) 100 mls @ 2 mls/hr IVCONT .Q24H [facility] Last Admin: 11/21/22 17:19 Dose: 0.5 mg/hr, 2 mls/hr Documented By: PAULINE Insulin Human Lispro (Insulin Lispro 100 Unit/Ml 3 Ml Vial) 0 unit SUBCUT QIDACHS [facility]; Protocol Last Admin: 11/22/22 11:07 Dose: Not Given Documented By: NIVIA Non-Admin Reason: No Insulin Coverage Magnesium Oxide (Magnesium Oxide 400 Mg Tablet) 400 mg PO BIDPC [facility] Last Admin: 11/22/22 08:08 Dose: 400 mg Documented By: NIVIA Metoprolol Succinate (Metoprolol Succinate Er 100 Mg Tab.Er.24h) 200 mg PO DAILY [facility]; Protocol Last Admin: 11/22/22 08:08 Dose: 200 mg Documented By: NIVIA Omeprazole (Omeprazole 20 Mg Capsule.Dr) 20 mg PO DAILY@0630 [facility] Last Admin: 11/22/22 05:05 Dose: 20 mg Documented By: NICHOLE Pharmacy Consult (Consult Rx Perform Med Rec) 1 each MISCELLANE ONCE PRN PRN Reason: Consult order Rivaroxaban (Rivaroxaban 15 Mg Tablet) 15 mg PO DAILY@2100 [facility] Last Admin: 11/21/22 21:53 Dose: 15 mg Documented By: DILLONASY Sodium Chloride (0.9 % Sodium Chloride Flush 3 Ml Syringe) 3 ml IVFLUSH QSHIFT [facility] Last Admin: 11/22/22 08:08 Dose: 3 ml Documented By: NIVIA Valsartan (Valsartan 40 Mg Tablet) 20 mg PO BID [facility]; Protocol Last Admin: 11/22/22 08:07 Dose: 20 mg Documented By: NIVIA Vitamin D (Cholecalciferol (Vitamin D3) 25 Mcg Tablet) 25 mcg PO BID [facility] Last Admin: 11/22/22 08:08 Dose: 25 mcg Documented By: NIVIA Labs 11/21/22 08:53 11/22/22 06:10 Labs: Laboratory Results - last 24 hr 11/21/22 11/21/22 11/22/22 16:04 19:56 06:10 Anion Gap 13 Estim Creat Clear Calc 34.5 Estimated GFR 37 POC Glucose 184 H 158 H Random Glucose 190 H Calcium 8.5 D B-Natriuretic Peptide 11/22/22 11/22/22 11/22/22 06:10 07:32 10:52 Anion Gap Estim Creat Clear Calc Estimated GFR POC Glucose 156 H 116 H Random Glucose Calcium B-Natriuretic Peptide 590 H Assessment and Plan (1) Symptomatic anemia: Status: Acute (2) Decompensated heart failure: Status: Acute (3) Hypokalemia: Status: Acute Plan 87M PMH CKD III, CAD, PHIL, DM, obesity, chronic afib s/p AV node ablation and pacer, COPD, CHF with new reduced EF on outpatient echo, chronic iron defeciency anemia, hearing loss, presented with sob. Acute hypoxic respiratory failure secondary to acute on chronic CHF with reduced ejection fraction (new from reported recent outpatient echo) Continue IV Bumex drip Add metolazone Cardiology input appreciated Continue?Toprol Abx discontinued for low suspecion of pneumonia Incentive spirometry Strict intake and output CT scan done, pending reading Chronic AFib Continue Xarelto chronic iron deficiency anemia Hb improved to 10.6 after transfusion continue PPI and monitor h and h while on xarelto hypomagenesemia and hypokalemia replace and monitor ?permanent atrial fibrillation ?status post AV albertina ablation and pacer placement ?continue Xarelto ?coronary disease ?Xarelto and Lipitor ?CKD 3 ?stable ?obesity weight loss recommended ?DVT prophylaxis with Xarelto ?DNR/DNI reason for continued hospitalization:continue iv diuresis pending safe discharge plan Time Spent With Patient Time: Total time managing care of this patient today ____ minutes. Quality Stroke Does the patient have a stroke diagnosis?: No VTE Prior VTE?: No VTE Risk Level:: Medical - moderate - high VTE Device Contraindication: Treatment Not Indicated VTE Drug Contraindication: N/A - Med Ordered
--- NOTE | 2022-11-22 15:37 | MHC.CM.PN ---
per rounds pt dc plan [facility] home with [facility] possible dc today
[2022-11-22 17:06] LABS: Glucose, Whole Blood 153 mg/dL (60-115)
[2022-11-22] MEDS: Bumetanide 25 MG in Container,Empty 0 ML IVCONT (17:39)
[2022-11-22] MEDS: metOLazone 5 MG TABLET PO (17:39)
[2022-11-22 20:23] LABS: Glucose, Whole Blood 110 mg/dL (60-115)
[2022-11-22] MEDS: Rivaroxaban 15 MG TABLET PO (22:02)
[2022-11-22] MEDS: Atorvastatin Calcium 20 MG TABLET PO (22:02)
[2022-11-23] VITALS (9 sets, daily range): BP systolic 98–135; BP diastolic 54–63; PULSE 71–92; RESP 16–20; TEMP 36.1–36.6; O2SAT 18–98
[2022-11-23] MEDS: Omeprazole 20 MG CAPSULE.DR PO (05:43)
[2022-11-23 07:17] LABS: B Type Natriuretic Peptide 510 pg/mL (<100)
--- NOTE | 2022-11-23 07:22 | PC.NURSE ---
Assumed care at 23:00, pt's Bumex gtt was held by previous RN. This RN restarted gtt. Pt had incontinent episode x2 onto floor. Pt states this brings shame to me and my family. Pt refusing to be reconnected to gtt. Pt educated on importance of complying with plan of care and medication regimen. Will con't to encourage compliance.
[2022-11-23 07:23] LABS: Anion Gap 16 (12-20); Blood Urea Nitrogen 45 mg/dL (9-16); Calcium 9.3 mg/dL (8.4-10.2); Carbon Dioxide 31 mmol/L (22-29); Chloride 100 mmol/L (96-108); Creatinine Clr Calc Pharmacy 35.1; Estimated Glomerular Filt Rate 37; Glucose Random 118 mg/dL (60-115); Potassium 3.9 mmol/L (3.3-5.1); Sodium 143 mmol/L (135-145)
[2022-11-23 07:47] LABS: Glucose, Whole Blood 93 mg/dL (60-115)
[2022-11-23] MEDS: Albuterol/Iprat 2.5/0.5MG 3 ML AMPUL.NEB INHALE ×3 (08:01→20:06)
[2022-11-23] MEDS: Empagliflozin 10 MG TABLET PO (09:10)
[2022-11-23] MEDS: 0.9 % Sodium Chloride Flush 3 ML SYRINGE IVFLUSH ×3 (09:10→21:48)
[2022-11-23] MEDS: Bumetanide 1 MG/4 ML VIAL 2 MG IVPUSH (09:10)
[2022-11-23] MEDS: Azithromycin 500 MG TABLET PO (09:10)
[2022-11-23] MEDS: guaiFENesin LA 600 MG TAB.ER.12H PO ×2 (09:11→21:48)
[2022-11-23] MEDS: Metoprolol Succinate ER 100 MG TAB.ER.24H 200 MG PO (09:11)
[2022-11-23] MEDS: Magnesium Oxide 400 MG TABLET PO ×2 (09:11→17:07)
[2022-11-23] MEDS: Cholecalciferol (Vitamin D3) 25 MCG TABLET PO ×2 (09:11→21:47)
[2022-11-23] MEDS: Valsartan 40 MG TABLET 20 MG PO ×2 (09:11→21:47)
[2022-11-23] MEDS: cefTRIAXone sodium 1 GM in 0.9 % Sodium Chloride 50 ML IV (09:19)
[2022-11-23] MEDS: Insulin Lispro 100 UNIT/ML 3 ML VIAL SUBCUT (12:03)
[2022-11-23 12:12] LABS: Glucose, Whole Blood 228 mg/dL (60-115)
--- NOTE | 2022-11-23 13:57 | PM.PNCARD ---
Subjective Subjective Date of Service: 11/23/22 Principal diagnosis: CHF Interval history: Patient remains volume overloaded. Poor urine output overall. BNP is minimally reduced. Continues to have cough. Not much shortness of breath Review of Systems Review of Systems Yes all other systems are reviewed and are negative Physical Exam Vital Signs: Last Vital Signs Temp 97.1 F 11/23/22 12:00 Pulse 72 11/23/22 13:29 Resp 16 11/23/22 13:29 BP 98/58 L 11/23/22 12:00 Pulse Ox 98 11/23/22 12:00 O2 Del Method 11/23/22 12:00 O2 Flow Rate 2 11/21/22 03:24 BMI result Body Mass Index 37.1 Const General: cooperative, alert, awake, in distress mild and respiratory and tired appearing Nutritional Appearance: overweight Orientation/consciousness: patient oriented x3 HEENT Head: Yes normocephalic and Yes atraumatic Neck Neck: Yes trachea midline and Yes supple Resp Effort & Inspection: normal respiratory effort Auscultation: crackles, no wheezes and diminished lung sounds Cardio Jugular venous distension: JVD Rate: regular rate Rhythm: regular rhythm Heart sounds: S1 normal heart sound present, S2 normal heart sound present, no click, no gallops and no murmurs GI Inspection: Yes distended Auscultation: normal bowel sounds Neuro General: patient oriented x3 and no focal motor deficits Extrem General: No clubbing, No cyanosis and Yes edema Objective Labs and Meds 11/21/22 08:53 11/23/22 06:20 Lab results: Laboratory Results - last 24 hr 11/22/22 11/22/22 11/23/22 16:59 20:18 06:20 Sodium 143 Potassium 3.9 D Chloride 100 Carbon Dioxide 31 H Anion Gap 16 BUN 45 H Creatinine 1.74 H Estim Creat Clear Calc 35.1 Estimated GFR 37 POC Glucose 153 H 110 Random Glucose 118 H Calcium 9.3 D B-Natriuretic Peptide 11/23/22 11/23/22 11/23/22 06:20 07:43 11:46 Sodium Potassium Chloride Carbon Dioxide Anion Gap BUN Creatinine Estim Creat Clear Calc Estimated GFR POC Glucose 93 228 H Random Glucose Calcium B-Natriuretic Peptide 510 H Imaging Radiologist's impression: Impressions Chest CT 11/22/22 11:57 IMPRESSION: 1. A 0.4 cm nodule in the right lung apex. According to the UPDATED 2017 Fleischner Society recommendations, the advised followup imaging for solid nodules < 6 mm is: LOW RISK PATIENT: No routine follow up. HIGH RISK PATIENT: Optional CT at 12 months. 2. Ground-glass changes in the lungs are nonspecific and may reflect hypoventilatory changes or changes related to small-airway or small-vessel disease. Infectious/inflammatory process is also in the differential. Right lower lobe consolidation may represent atelectasis or infiltrate. Otherwise, no discrete mass or changes of pulmonary edema noted. 3. Extensive coronary calcifications. Cardiomegaly. Mild pericardial thickening. 4. 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 There are no pertinent prior studies for comparison otherwise. Differential may include large adrenal myolipoma or retroperitoneal lipomatous tumor. Recommend correlation with clinical history. Fleischner guidelines were followed. Progress Note: A&P Assessment and plan (1) Decompensated heart failure: Status: Acute Assessment and Plan: Decompensated heart failure with poor response to loop diuretic therapy including intravenous infusion. Eyes and nose are suggestive of poor response although not sure if there is any poor calculation of the output. At this time would give additional diuretic boost with metolazone 5 mg. Strict intake and output chart needs to be pursued. Continue to monitor BNP and BMP and replace electrolytes as needed. Overall prognosis is guarded. Compression therapy for his lower extremities. Continue other therapies including Jardiance. Will continue to follow with you Time Spent With Patient Time: Total time managing care of this patient today ____ minutes. Progress Note: Quality Stroke Does the patient have a stroke diagnosis?: No Procedures Date of Service Date of Service: 11/23/22
--- NOTE | 2022-11-23 14:22 | P.PNIM_ITS ---
Subjective Subjective Date of Service: 11/23/22 Interval History: Seen and evaluated this morning Feels better overall, swelling going down but still coughing Refused to Bumex drip and took himself off last night CT scan concerning for possible infiltrates No other overnight events Review of Systems Review of Systems: Yes all other systems are reviewed and are negative Physical Exam Vital Signs: Vital Signs: Last Vital Signs Temp 97.1 F 11/23/22 12:00 Pulse 72 11/23/22 13:29 Resp 16 11/23/22 13:29 BP 98/58 L 11/23/22 12:00 Pulse Ox 98 11/23/22 12:00 O2 Del Method 11/23/22 12:00 O2 Flow Rate 2 11/21/22 03:24 BMI result Body Mass Index 37.1 Const: Other: Constitutional : Awake, interactive, not in distress Neck : Normal inspection, Supple Cardiovascular : RRR, no JVP, +1 bilateral lower extremity edema Respiratory : good bilateral air entry, basal fine bilateral crackles, scattered wheezes Gastrointestinal: soft, lax, Normal bowel sounds, Non tender Skin : Warm, Dry Neurological : Alert & oriented x3, No focal deficit Objective Data Active Medications Albuterol/Ipratropium (Albuterol/Iprat 2.5/0.5mg 3 Ml Ampul.Neb) 3 ml INHALE RQ 6H WHILE AWAKE [facility] Last Admin: 11/23/22 13:28 Dose: 3 ml Documented By: SUZETTE Atorvastatin Calcium (Atorvastatin Calcium 20 Mg Tablet) 20 mg PO BEDTIME [facility] Last Admin: 11/22/22 22:02 Dose: 20 mg Documented By: FRANKY Azithromycin (Azithromycin 500 Mg Tablet) 500 mg PO Q24H [facility] Last Admin: 11/23/22 09:10 Dose: 500 mg Documented By: PAULINE Bumetanide (Bumetanide 1 Mg/4 Ml Vial) 2 mg IVPUSH BID@0900,1700 [facility]; Protocol Last Admin: 11/23/22 09:10 Dose: 2 mg Documented By: PAULINE Dextrose (Dextrose 50 % 25 Gm/50 Ml Syringe) 25 gm IVPUSH Q15M PRN; Protocol PRN Reason: per Hypoglycemia Standing Ord. Empagliflozin (Empagliflozin 10 Mg Tablet) 10 mg PO DAILY [facility] Last Admin: 11/23/22 09:10 Dose: 10 mg Documented By: PAULINE Glucose (Glucose Gel 15 Gm Gel..Gram.) 15 gm PO Q15M PRN; Protocol PRN Reason: per Hypoglycemia Standing Ord. Guaifenesin (Guaifenesin La 600 Mg Tab.Er.12h) 600 mg PO BID [facility] Last Admin: 11/23/22 09:11 Dose: 600 mg Documented By: PAULINE Bumetanide 25 mg/ IV (Miscellaneous Supplies) 100 mls @ 2 mls/hr IVCONT .Q24H [facility] Last Infusion: 11/23/22 11:56 Dose: 0 mg/hr, 0 mls/hr Documented By: PAULINE Ceftriaxone Sodium 1 gm/ (Sodium Chloride) 50 mls @ 100 mls/hr IV Q24H [facility] Last Infusion: 11/23/22 10:27 Dose: 0 mls/hr Documented By: PAULINE Insulin Human Lispro (Insulin Lispro 100 Unit/Ml 3 Ml Vial) 0 unit SUBCUT QIDACHS [facility]; Protocol Last Admin: 11/23/22 12:03 Dose: 4 unit Documented By: NATALIYA Magnesium Oxide (Magnesium Oxide 400 Mg Tablet) 400 mg PO BIDPC [facility] Last Admin: 11/23/22 09:11 Dose: 400 mg Documented By: PAULINE Metoprolol Succinate (Metoprolol Succinate Er 100 Mg Tab.Er.24h) 200 mg PO DAILY [facility]; Protocol Last Admin: 11/23/22 09:11 Dose: 200 mg Documented By: PAULINE Omeprazole (Omeprazole 20 Mg Capsule.Dr) 20 mg PO DAILY@0630 [facility] Last Admin: 11/23/22 05:43 Dose: 20 mg Documented By: FRANCISCO Pharmacy Consult (Consult Rx Perform Med Rec) 1 each MISCELLANE ONCE PRN PRN Reason: Consult order Rivaroxaban (Rivaroxaban 15 Mg Tablet) 15 mg PO DAILY@2100 [facility] Last Admin: 11/22/22 22:02 Dose: 15 mg Documented By: FRANYK Sodium Chloride (0.9 % Sodium Chloride Flush 3 Ml Syringe) 3 ml IVFLUSH QSHIFT [facility] Last Admin: 11/23/22 09:10 Dose: 3 ml Documented By: PAULINE Valsartan (Valsartan 40 Mg Tablet) 20 mg PO BID [facility]; Protocol Last Admin: 11/23/22 09:11 Dose: 20 mg Documented By: PAULINE Vitamin D (Cholecalciferol (Vitamin D3) 25 Mcg Tablet) 25 mcg PO BID [facility] Last Admin: 11/23/22 09:11 Dose: 25 mcg Documented By: PAULINE Labs 11/21/22 08:53 11/23/22 06:20 Labs: Laboratory Results - last 24 hr 11/22/22 11/22/22 11/23/22 16:59 20:18 06:20 Anion Gap 16 Estim Creat Clear Calc 35.1 Estimated GFR 37 POC Glucose 153 H 110 Random Glucose 118 H Calcium 9.3 D B-Natriuretic Peptide 11/23/22 11/23/22 11/23/22 06:20 07:43 11:46 Anion Gap Estim Creat Clear Calc Estimated GFR POC Glucose 93 228 H Random Glucose Calcium B-Natriuretic Peptide 510 H Assessment and Plan (1) Hypokalemia: Status: Acute (2) Symptomatic anemia: Status: Acute (3) Decompensated heart failure: Status: Acute (4) Pneumonia: Status: Acute Plan 87M PMH CKD III, CAD, PHIL, DM, obesity, chronic afib s/p AV node ablation and pacer, COPD, CHF with new reduced EF on outpatient echo, chronic iron defeciency anemia, hearing loss, presented with sob. Acute hypoxic respiratory failure secondary to acute on chronic CHF with reduced ejection fraction (new from reported recent outpatient echo) Discontinue IV Bumex drip Start Bumex injection b.i.d. Continue 5 mg metolazone Cardiology input appreciated Continue?Toprol Incentive spirometry Strict intake and output Community-acquired pneumonia CT scan concerning for infiltrates Start antibiotic of azithromycin ceftriaxone Cough medication Chronic AFib Continue Xarelto chronic iron deficiency anemia Hb improved to 10.6 after transfusion continue PPI and monitor h and h while on xarelto hypomagenesemia and hypokalemia replace and monitor ?permanent atrial fibrillation ?status post AV albertina ablation and pacer placement ?continue Xarelto ?coronary disease ?Xarelto and Lipitor ?CKD 3 ?stable ?obesity weight loss recommended ?DVT prophylaxis with Xarelto ?DNR/DNI reason for continued hospitalization:continue iv diuresis and antibiotics pending safe discharge plan Time Spent With Patient Time: Total time managing care of this patient today ____ minutes. Quality Stroke Does the patient have a stroke diagnosis?: No VTE Prior VTE?: No VTE Risk Level:: Medical - moderate - high VTE Device Contraindication: Treatment Not Indicated VTE Drug Contraindication: N/A - Med Ordered
[2022-11-23 16:03] LABS: Glucose, Whole Blood 99 mg/dL (60-115)
[2022-11-23] MEDS: Benzonatate 100 MG CAPSULE 200 MG PO ×2 (17:06→21:47)
[2022-11-23] MEDS: metOLazone 5 MG TABLET PO (17:07)
[2022-11-23] MEDS: Bumetanide 1 MG/4 ML VIAL 4 MG IVPUSH (17:08)
[2022-11-23 21:11] LABS: Glucose, Whole Blood 149 mg/dL (60-115)
[2022-11-23] MEDS: Atorvastatin Calcium 20 MG TABLET PO (21:47)
[2022-11-23] MEDS: Rivaroxaban 15 MG TABLET PO (21:48)
[2022-11-24] VITALS (8 sets, daily range): BP systolic 95–110; BP diastolic 50–58; PULSE 69–77; RESP 18–20; TEMP 36.2–36.6; O2SAT 91–97
--- NOTE | 2022-11-24 05:47 | PC.RT ---
Pt refused CPAP for NOC support overnight
[2022-11-24] MEDS: Omeprazole 20 MG CAPSULE.DR PO (05:54)
[2022-11-24 07:03] LABS: Anion Gap 18 (12-20); Blood Urea Nitrogen 48 mg/dL (9-16); Calcium 9.4 mg/dL (8.4-10.2); Carbon Dioxide 33 mmol/L (22-29); Chloride 93 mmol/L (96-108); Creatinine Clr Calc Pharmacy 28.2; Estimated Glomerular Filt Rate 29; Glucose Random 122 mg/dL (60-115); Potassium 3.5 mmol/L (3.3-5.1); Sodium 140 mmol/L (135-145)
[2022-11-24 07:13] LABS: B Type Natriuretic Peptide 520 pg/mL (<100)
[2022-11-24] MEDS: Albuterol/Iprat 2.5/0.5MG 3 ML AMPUL.NEB INHALE ×2 (07:47→13:44)
[2022-11-24 08:11] LABS: Glucose, Whole Blood 123 mg/dL (60-115)
--- NOTE | 2022-11-24 09:40 | MHC.CM.PN ---
Addendum entered by Stephanie Garcia 11/24/22 11:50: HOLDING DC TODAY PT EXPECTED TO DC TOMORROW, HOME WITH [facility] Original Note: PT EXPECTED TO DC HOME TODAY WITH [facility] FOR CHF MANAGEMENT/EDUCATION FRIEND TO TRANSPORT
[2022-11-24] MEDS: Metoprolol Succinate ER 100 MG TAB.ER.24H 200 MG PO (10:01)
[2022-11-24] MEDS: Cholecalciferol (Vitamin D3) 25 MCG TABLET PO ×2 (10:01→20:20)
[2022-11-24] MEDS: 0.9 % Sodium Chloride Flush 3 ML SYRINGE IVFLUSH ×2 (10:01→16:53)
[2022-11-24] MEDS: cefTRIAXone sodium 1 GM in 0.9 % Sodium Chloride 50 ML IV (10:02)
[2022-11-24] MEDS: Azithromycin 500 MG TABLET PO (10:02)
[2022-11-24] MEDS: guaiFENesin LA 600 MG TAB.ER.12H PO ×2 (10:02→20:20)
[2022-11-24] MEDS: Magnesium Oxide 400 MG TABLET PO ×2 (10:02→16:53)
[2022-11-24] MEDS: Empagliflozin 10 MG TABLET PO (10:02)
[2022-11-24] MEDS: Benzonatate 100 MG CAPSULE 200 MG PO ×3 (10:02→20:22)
--- NOTE | 2022-11-24 11:00 | P.DS_ITS ---
DS: Providers Provider Date of Service: 11/25/22 Date of admission: 11/18/22 11:42 Primary care physician: Brian Colón MD Consults: 11/18/22 11:41 Consult to Cardiology Routine Consulting Provider: Roman Jackson Reason for consultation: chf with new reduced ef (outpatient echo) DS: Diagnosis Discharge Diagnosis (1) Hypokalemia: Status: Acute (2) Symptomatic anemia: Status: Acute (3) Decompensated heart failure: Status: Acute (4) Pneumonia: Status: Acute DS: Summary Hospital Course Hospital Course: Admission note HPI 87M PMH CKD III, CAD, PHIL, DM, obesity, chronic afib s/p AV node ablation and pacer, COPD, CHF with new reduced EF on outpatient echo, chronic iron defeciency anemia, hearing loss, presented with sob. patient is a vague historian, arrived via EMS with 1 day history of sob, worsening lower extremity edema, abdominal bloating. denies chest pain, saturating 88% on room air. pulm edema on cxr.. Hospital course The patient was admitted to the hospital for treatment of Acute hypoxic respiratory failure secondary to acute on chronic CHF with reduced ejection fraction. Evaluated by Cardiology team as he was started on Lasix with no significant urine output change. Change to IV Bumex drip with addition of metolazone with good response as his symptoms start improve. Cardiology evaluated the patient and recommended addition of valsartan and Jardiance. Patient was weaned of oxygen supplement and was able to ambulate on room air with no reported dyspnea exertion. Blood pressure noted to be on the softer side after starting valsartan so it was discontinued with a plan to follow-up with his tire fabric impregnating range tender for further adjustments of his home medications. He was treated for Community-acquired pneumonia after fluid overload started resolved. CT scan was done concerning for infiltrates. Started on antibiotic of azithromycin ceftriaxone as cultures remain negative. To be discharged on Ceftin and azithromycin with cough medicine. He was noted to Symptomatic anemia on top of chronic iron-deficiency anemia. Transfused total of 2 units of blood with good response as his hemoglobin improved to 10.6 with improvement of his symptoms of shortness of breath and dyspnea on exertion. No reported incidence of bleeding. Will need to follow-up with PCP as outpatient if further workup needed. Continue home dose torsemide continue azithromycin and cefuroxime mean as prescribed Valeria Schafer for cough treatment Start Jardiance and valsartan as prescribed by tire fabric impregnating range tender. To follow-up with your tire fabric impregnating range tender as outpatient within the next 2 weeks Decrease salt intake, monitor your weight and report any increased your PCP To repeat blood test next week Time Spent with Patient Time attestation: Total time managing care of this patient today ____ minutes. Discharge coordination time: Greater than 30 minutes Quality: Safe Use of Opioids Does Pt have an Active Cancer Diagnosis on the Problem List?: No Quality: Stroke Does the patient have a stroke diagnosis?: No Physical Exam Vital Signs: Vital Signs: Last Vital Signs Temp 97.1 F 11/24/22 07:52 Pulse 71 11/24/22 07:52 Resp 20 11/24/22 07:52 BP 108/56 L 11/24/22 07:52 Pulse Ox 91 L 11/24/22 07:52 O2 Del Method 11/24/22 07:52 O2 Flow Rate 2 11/21/22 03:24 BMI result Body Mass Index 37.1 Const: Other: Constitutional : Awake, interactive, not in distress Neck : Normal inspection, Supple Cardiovascular : RRR, no JVP, trace bilateral lower extremity edema Respiratory : good bilateral air entry, no basal crackles, no wheezes Gastrointestinal: soft, lax, Normal bowel sounds, Non tender Skin : Warm, Dry Neurological : Alert & oriented x3, No focal deficit DS: Data Data Completed and Pending Labs on day of discharge: Laboratory Results - last 24 hr 11/23/22 11/23/22 11/23/22 11:46 15:51 21:08 Sodium Potassium Chloride Carbon Dioxide Anion Gap BUN Creatinine Estim Creat Clear Calc Estimated GFR POC Glucose 228 H 99 149 H Random Glucose Calcium B-Natriuretic Peptide 11/24/22 11/24/22 11/24/22 06:29 06:29 07:53 Sodium 140 Potassium 3.5 Chloride 93 L Carbon Dioxide 33 H Anion Gap 18 BUN 48 H Creatinine 2.16 H Estim Creat Clear Calc 28.2 Estimated GFR 29 POC Glucose 123 H Random Glucose 122 H Calcium 9.4 B-Natriuretic Peptide 520 H Imaging Chest x-ray: Radiologist's impression: ITS Impressions Chest X-Ray 11/18/22 08:50 FINDINGS/IMPRESSION: The study is quite limited by portable technique and low lung volumes. Findings suggest bilateral interstitial prominence with patchy, bilateral, predominantly perihilar interstitial and possibly groundglass and/or alveolar infiltrates. The findings raise suspicion for pulmonary edema; superimposed pneumonia cannot be confirmed or excluded. There is a question of a hazy density at the left base, raising the possibility of small effusion. No effusion is suspected on the right. No pneumothorax is evident. The cardiac silhouette is suboptimally evaluated. The tip of a left subclavian pulse generator device lead projects over the right ventricle. There is an old, healed fracture of the left clavicle. There are degenerative changes of the spine. Chest X-Ray 11/19/22 04:59 IMPRESSION: * Small bilateral pleural effusions suspected. * Retrocardiac opacity could represent atelectasis or infiltrate. Chest CT 11/22/22 11:57 IMPRESSION: 1. A 0.4 cm nodule in the right lung apex. According to the UPDATED 2017 Fleischner Society recommendations, the advised followup imaging for solid nodules < 6 mm is: LOW RISK PATIENT: No routine follow up. HIGH RISK PATIENT: Optional CT at 12 months. 2. Ground-glass changes in the lungs are nonspecific and may reflect hypoventilatory changes or changes related to small-airway or small-vessel disease. Infectious/inflammatory process is also in the differential. Right lower lobe consolidation may represent atelectasis or infiltrate. Otherwise, no discrete mass or changes of pulmonary edema noted. 3. Extensive coronary calcifications. Cardiomegaly. Mild pericardial thickening. 4. 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 There are no pertinent prior studies for comparison otherwise. Differential may include large adrenal myolipoma or retroperitoneal lipomatous tumor. Recommend correlation with clinical history. Fleischner guidelines were followed. Discharge Plan Discharge Anticipated Discharge Date/Time: 11/25/22 11:41 Patient Disposition: Home Health Service Discharge Diagnosis: Heart failure exacerbation Community-acquired pneumonia Symptomatic anemia Referrals: [facility] [Outside] - 3-5 Days Brian Colón MD [Primary Care Provider] - 1 Week Discharge Medications: New azithromycin 500 mg Tablet 500 mg PO Q24H Qty: 5 0RF Jardiance 10 mg Tablet 10 mg PO DAILY Qty: 30 0RF benzonatate 100 mg Capsule 200 mg PO TID Qty: 30 0RF guaifenesin [Mucinex] 600 mg Tablet Extended Release 12hr 600 mg PO BID Qty: 14 0RF cefuroxime axetil 500 mg tablet 500 mg PO BID Qty: 10 0RF Continued metformin 500 mg tablet 1 tab PO BID atorvastatin 20 mg tablet 1 tab PO DAILY torsemide 20 mg tablet 2 tab PO BID metoprolol succinate 200 mg tablet extended release 24 hr 1 tab PO DAILY omeprazole 20 mg capsule,delayed release(DR/EC) 1 cap PO DAILY Xarelto 15 mg tablet 1 tab PO DAILY potassium chloride 20 mEq tablet extended release 1 tab PO BID cholecalciferol (vitamin D3) [Vitamin D3] 25 mcg (1,000 unit) Tablet 25 mcg PO BID Discharge Orders: Discharge Order (Routine); Ordered 11/25/22 Ordered By: Ayaka Rangel Diet: Low salt diet Activity on Discharge: As tolerated Stand Alone Forms: Patient Portal Discharge page Other Ambulatory Orders: Basic Metabolic Panel (Routine) Timeframe: 4 Days Facility: [facility], [place] - Location: Laboratory Ordered By: Ayaka Rangel Complete Blood Count no Diff (Routine) Timeframe: 5 Days Facility: [facility], [place] - Location: Laboratory Ordered By: Ayaka Rangel Care Plan Goals: Read below Health Concerns: Read below Plan of Treatment: Read below Assessment: You were admitted to the hospital for evaluation of difficulty breathing. Found to be in heart failure exacerbation with associated pneumonia. Treated with IV diuretics as you were evaluated by tire fabric impregnating range tender. Started IV antibiotics as CT scan of the chest was consistent with possible infiltrates to your lung. We were able to ambulate on room air with no reported dyspnea. Continue home dose torsemide continue azithromycin and cefuroxime mean as prescribed Valeria Schafer for cough treatment Start Jardiance as prescribed To follow-up with your tire fabric impregnating range tender as outpatient within the next 2 weeks Decrease salt intake, monitor your weight and report any increased your PCP To repeat blood test next week
--- NOTE | 2022-11-24 11:16 | HO.PM.IMPN ---
Subjective Subjective Date of Service: 11/24/22 Interval History: Seen and evaluated this morning Feels better overall, swelling going down Creatinine increased to 2.1 Blood pressure running low for the last 24 hours No other overnight events Review of Systems Review of Systems: Yes all other systems are reviewed and are negative Physical Exam Vital Signs: Vital Signs: Last Vital Signs Temp 97.4 F 11/24/22 10:58 Pulse 69 11/24/22 10:58 Resp 20 11/24/22 10:58 BP 95/53 L 11/24/22 10:58 Pulse Ox 96 11/24/22 10:58 O2 Del Method 11/24/22 10:58 O2 Flow Rate 2 11/21/22 03:24 BMI result Body Mass Index 37.1 Const: Other: Constitutional : Awake, interactive, not in distress Neck : Normal inspection, Supple Cardiovascular : RRR, no JVP, trace bilateral lower extremity edema Respiratory : good bilateral air entry, basal fine bilateral crackles, scattered wheezes Gastrointestinal: soft, lax, Normal bowel sounds, Non tender Skin : Warm, Dry Neurological : Alert & oriented x3, No focal deficit Objective Data Active Medications Albuterol/Ipratropium (Albuterol/Iprat 2.5/0.5mg 3 Ml Ampul.Neb) 3 ml INHALE RQ6H WHILE AWAKE [facility] Last Admin: 11/24/22 07:47 Dose: 3 ml Documented By: SUZETTE Atorvastatin Calcium (Atorvastatin Calcium 20 Mg Tablet) 20 mg PO BEDTIME [facility] Last Admin: 11/23/22 21:47 Dose: 20 mg Documented By: HIEN Azithromycin (Azithromycin 500 Mg Tablet) 500 mg PO Q24H [facility] Last Admin: 11/24/22 10:02 Dose: 500 mg Documented By: PAULINE Benzonatate (Benzonatate 100 Mg Capsule) 200 mg PO TID [facility] Last Admin: 11/24/22 10:02 Dose: 200 mg Documented By: PAULINE Bumetanide (Bumetanide 1 Mg/4 Ml Vial) 2 mg IVPUSH BID@0900,1700 [facility]; Protocol Dextrose (Dextrose 50 % 25 Gm/50 Ml Syringe) 25 gm IVPUSH Q15M PRN; Protocol PRN Reason: per Hypoglycemia Standing Ord. Empagliflozin (Empagliflozin 10 Mg Tablet) 10 mg PO DAILY [facility] Last Admin: 11/24/22 10:02 Dose: 10 mg Documented By: PAULINE Glucose (Glucose Gel 15 Gm Gel..Gram.) 15 gm PO Q15M PRN; Protocol PRN Reason: per Hypoglycemia Standing Ord. Guaifenesin (Guaifenesin La 600 Mg Tab.Er.12h) 600 mg PO BID [facility] Last Admin: 11/24/22 10:02 Dose: 600 mg Documented By: PAULINE Ceftriaxone Sodium 1 gm/ (Sodium Chloride) 50 mls @ 100 mls/hr IV Q24H [facility] Last Infusion: 11/24/22 11:00 Dose: 0 mls/hr Documented By: PAULINE Insulin Human Lispro (Insulin Lispro 100 Unit/Ml 3 Ml Vial) 0 unit SUBCUT QIDACHS [facility]; Protocol Last Admin: 11/24/22 08:10 Dose: Not Given Documented By: PEÑA Non-Admin Reason: No Insulin Coverage Magnesium Oxide (Magnesium Oxide 400 Mg Tablet) 400 mg PO BIDPC [facility] Last Admin: 11/24/22 10:02 Dose: 400 mg Documented By: PAULINE Metoprolol Succinate (Metoprolol Succinate Er 100 Mg Tab.Er.24h) 200 mg PO DAILY [facility]; Protocol Last Admin: 11/24/22 10:01 Dose: 200 mg Documented By: PAULINE Omeprazole (Omeprazole 20 Mg Capsule.Dr) 20 mg PO DAILY@0630 [facility] Last Admin: 11/24/22 05:54 Dose: 20 mg Documented By: HIEN Pharmacy Consult (Consult Rx Perform Med Rec) 1 each MISCELLANE ONCE PRN PRN Reason: Consult order Rivaroxaban (Rivaroxaban 15 Mg Tablet) 15 mg PO DAILY@2100 [facility] Last Admin: 11/23/22 21:48 Dose: 15 mg Documented By: HIEN Sodium Chloride (0.9 % Sodium Chloride Flush 3 Ml Syringe) 3 ml IVFLUSH QSHIFT [facility] Last Admin: 11/24/22 10:01 Dose: 3 ml Documented By: PAULINE Valsartan (Valsartan 40 Mg Tablet) 20 mg PO BID [facility]; Protocol Last Admin: 11/23/22 21:47 Dose: 20 mg Documented By: HIEN Vitamin D (Cholecalciferol (Vitamin D3) 25 Mcg Tablet) 25 mcg PO BID [facility] Last Admin: 11/24/22 10:01 Dose: 25 mcg Documented By: PAULINE Labs 11/21/22 08:53 11/24/22 06:29 Labs: Laboratory Results - last 24 hr 11/23/22 11/23/22 11/23/22 11:46 15:51 21:08 Anion Gap Estim Creat Clear Calc Estimated GFR POC Glucose 228 H 99 149 H Random Glucose Calcium B-Natriuretic Peptide 11/24/22 11/24/22 11/24/22 06:29 06:29 07:53 Anion Gap 18 Estim Creat Clear Calc 28.2 Estimated GFR 29 POC Glucose 123 H Random Glucose 122 H Calcium 9.4 B-Natriuretic Peptide 520 H Microbiology Microbiology Results: Microbiology 11/19/22 06:32 Blood Culture - Final Blood - Venous No growth after 5 days. 11/19/22 06:32 Blood Culture - Final Blood - Venous No growth after 5 days. Assessment and Plan (1) Pneumonia: Status: Acute (2) Hypokalemia: Status: Acute (3) Symptomatic anemia: Status: Acute (4) Decompensated heart failure: Status: Acute Plan 87M PMH CKD III, CAD, PHIL, DM, obesity, chronic afib s/p AV node ablation and pacer, COPD, CHF with new reduced EF on outpatient echo, chronic iron defeciency anemia, hearing loss, presented with sob. Acute hypoxic respiratory failure secondary to acute on chronic CHF with reduced ejection fraction (new from reported recent outpatient echo) Discontinue IV Bumex drip hold Bumex injection b.i.d. Continue 5 mg metolazone Cardiology input appreciated Continue?Toprol Incentive spirometry Strict intake and output Community-acquired pneumonia CT scan concerning for infiltrates Continue azithromycin ceftriaxone Cough medication Hypotension Blood pressure running on the soft side likely from medications Hold valsartan Bumex on hold for now Chronic AFib Continue Xarelto chronic iron deficiency anemia Hb improved to 10.6 after transfusion continue PPI and monitor h and h while on xarelto hypomagenesemia and hypokalemia replace and monitor ?permanent atrial fibrillation ?status post AV albertina ablation and pacer placement ?continue Xarelto ?coronary disease ?Xarelto and Lipitor worsening?CKD 3 ?Cr up to 2.1 hold nephrotoxic meds for today ?obesity weight loss recommended ?DVT prophylaxis with Xarelto ?DNR/DNI reason for continued hospitalization: monitoring Low BP and need of antibiotics pending safe discharge plan Time Spent With Patient Time: Total time managing care of this patient today ____ minutes. Quality Stroke Does the patient have a stroke diagnosis?: No VTE Prior VTE?: No VTE Risk Level:: Medical - moderate - high VTE Device Contraindication: Treatment Not Indicated VTE Drug Contraindication: N/A - Med Ordered
[2022-11-24 11:23] LABS: Glucose, Whole Blood 229 mg/dL (60-115)
[2022-11-24] MEDS: Insulin Lispro 100 UNIT/ML 3 ML VIAL SUBCUT ×2 (11:50→20:20)
[2022-11-24 16:00] LABS: Glucose, Whole Blood 100 mg/dL (60-115)
[2022-11-24 19:49] LABS: Glucose, Whole Blood 161 mg/dL (60-115)
[2022-11-24] MEDS: Atorvastatin Calcium 20 MG TABLET PO (20:20)
[2022-11-24] MEDS: Rivaroxaban 15 MG TABLET PO (20:20)
[2022-11-24] MEDS: Bumetanide 1 MG/4 ML VIAL 2 MG IVPUSH (20:20)
[2022-11-25 04:00] VITALS: BP 102/56; PULSE 60; RESP 18; TEMP 36.4; O2SAT 95
[2022-11-25] MEDS: Omeprazole 20 MG CAPSULE.DR PO (04:45)
[2022-11-25 06:03] LABS: Anion Gap 19 (12-20); Blood Urea Nitrogen 53 mg/dL (9-16); Calcium 9.3 mg/dL (8.4-10.2); Carbon Dioxide 33 mmol/L (22-29); Chloride 91 mmol/L (96-108); Creatinine Clr Calc Pharmacy 30.8; Estimated Glomerular Filt Rate 32; Glucose Random 142 mg/dL (60-115); Potassium 3.3 mmol/L (3.3-5.1); Sodium 140 mmol/L (135-145)
[2022-11-25 07:16] VITALS: BP 97/52; PULSE 69; RESP 16; TEMP 36; O2SAT 94
[2022-11-25 07:26] LABS: Glucose, Whole Blood 216 mg/dL (60-115)
[2022-11-25] MEDS: Albuterol/Iprat 2.5/0.5MG 3 ML AMPUL.NEB INHALE (07:31)
[2022-11-25 07:32] VITALS: PULSE 70; RESP 15; O2SAT 95
[2022-11-25 07:35] VITALS: PULSE 70; RESP 18; O2SAT 95
[2022-11-25] MEDS: guaiFENesin LA 600 MG TAB.ER.12H PO (08:07)
[2022-11-25] MEDS: Metoprolol Succinate ER 100 MG TAB.ER.24H 200 MG PO (08:08)
[2022-11-25] MEDS: Magnesium Oxide 400 MG TABLET PO (08:08)
[2022-11-25] MEDS: Cholecalciferol (Vitamin D3) 25 MCG TABLET PO (08:08)
[2022-11-25] MEDS: Benzonatate 100 MG CAPSULE 200 MG PO (08:08)
[2022-11-25] MEDS: Azithromycin 500 MG TABLET PO (08:08)
[2022-11-25] MEDS: 0.9 % Sodium Chloride Flush 3 ML SYRINGE IVFLUSH (08:09)
[2022-11-25] MEDS: Insulin Lispro 100 UNIT/ML 3 ML VIAL SUBCUT (08:09)
[2022-11-25] MEDS: Empagliflozin 10 MG TABLET PO (08:09)
[2022-11-25] MEDS: cefTRIAXone sodium 1 GM in 0.9 % Sodium Chloride 50 ML IV (08:09)
[2022-11-25 11:28] VITALS: PULSE 73; RESP 20; TEMP 36.8; O2SAT 99
[2022-11-25 11:38] LABS: Glucose, Whole Blood 99 mg/dL (60-115)
--- NOTE | 2022-11-25 12:33 | MHC.CM.PN ---
pt to be dcd home today vna notified of dc
== END 2022-11-25 15:34 | disposition home health service (06) | DRG 291 ==
LOC: HO.ED 11:53 → HO.EDOVER 12:01 → HO.IMC 17:11
PROVIDERS: Admitting Provider Internal Medicine; Emergency Provider Emergency Medicine; PCP Pediatrics; Visit Provider Student in an Organized Health Care Education/Training Program
DX: I50.23 Acute on chronic systolic (congestive) heart failure (principal); J18.9 Pneumonia, unspecified organism; J96.01 Acute respiratory failure with hypoxia; J44.0 Chronic obstructive pulmonary disease with (acute) lower respiratory infection; I48.21 Permanent atrial fibrillation; I25.10 Atherosclerotic heart disease of native coronary artery without angina pectoris; G47.33 Obstructive sleep apnea (adult) (pediatric); N18.30 Chronic kidney disease, stage 3 unspecified; E66.9 Obesity, unspecified; Z66 Do not resuscitate; Z68.37 Body mass index [BMI] 37.0-37.9, adult; D50.9 Iron deficiency anemia, unspecified; E83.42 Hypomagnesemia; I95.2 Hypotension due to drugs; E87.6 Hypokalemia; D63.1 Anemia in chronic kidney disease; E11.22 Type 2 diabetes mellitus with diabetic chronic kidney disease; Z20.822 Contact with and (suspected) exposure to COVID-19; Z95.0 Presence of cardiac pacemaker; Z79.01 Long term (current) use of anticoagulants; Z79.84 Long term (current) use of oral hypoglycemic drugs; Z79.899 Other long term (current) drug therapy
CPT/HCPCS: 0241U; 36415; 71045; 71250; 80048; 82728; 82947; 83540; 83735; 83880; 84484; 85025; 85027; 86850; 86900; 86901; 86923; 87040; 93005; 94640; 94660; 99285; J0696; J1940; P9016

== ENCOUNTER 2022-12-02 11:49 | Outpatient (REF) | payer MEDICARE, SELFPAY ==
[2022-12-02 12:14] LABS: Alanine Aminotransferase 31 U/L (0-40); Albumin Level 3.6 g/dL (3.5-5.0); Alkaline Phosphatase 125 U/L (39-117); Anion Gap 17 (12-20); Aspartate Amino Transferase 29 U/L (5-37); Bilirubin Total 0.9 mg/dL (0.0-1.0); Blood Urea Nitrogen 52 mg/dL (9-16); Calcium 9.4 mg/dL (8.4-10.2); Carbon Dioxide 37 mmol/L (22-29); Chloride 92 mmol/L (96-108); Estimated Glomerular Filt Rate 30; Glucose Random 165 mg/dL (60-115); Potassium 3.6 mmol/L (3.3-5.1); Sodium 142 mmol/L (135-145); Total Protein 6.7 g/dL (6.5-8.0)
== END 2022-12-02 11:50 | disposition home or self-care (01) ==
LOC: HO.HVNA 11:49
PROVIDERS: Visit Provider Student in an Organized Health Care Education/Training Program
DX: Z13.89 Encounter for screening for other disorder (principal)
CPT/HCPCS: 80053